=== PATIENT | female | born 1990 | race Caucasian/White ===

== ENCOUNTER 2022-05-11 20:10 | Emergency (ER) | payer MEDICAID, SELFPAY ==
[2022-05-11 20:21] VITALS: BP 152/98; PULSE 81; RESP 16; TEMP 36.6; O2SAT 99
--- NOTE | 2022-05-11 20:46 | ED.GENADULT ---
HPI - General Adult General Chief complaint: Nausea/Vomiting Stated complaint: nausea Time Seen by Provider: 05/11/22 20:22 History of Present Illness HPI narrative: This 32-year-old female comes in reporting persistent nausea and vomiting since noon today. She states that she has some Zofran but this did not help her symptoms. She simply wants to eat and be able to take her medications. She does not report any diarrhea or fevers. She does have a history of recurrent vomiting and typically takes Zofran as needed. Related Data Home Medications Medication Instructions Recorded Confirmed Probiotic 05/11/22 gabapentin 300 mg capsule mg 05/11/22 omeprazole 20 mg capsule,delayed mg 05/11/22 release ondansetron 4 mg disintegrating mg 05/11/22 tablet venlafaxine 150 mg mg PO 05/11/22 capsule,extended release 24 hr Previous Rx's Medication Instructions Recorded metoclopramide HCl 10 mg tablet 10 mg PO Q6H PRN #10 tab 05/11/22 (Reglan) Allergies Allergy/AdvReac Type Severity Reaction Status Date / Time bupropion [From Wellbutrin] AdvReac Verified 05/11/22 20:28 all forms control AdvReac Unknown Uncoded 05/11/22 20:28 oxycodone AdvReac Anxiety Uncoded 05/11/22 20:28 Review of Systems Status of ROS: Reports: 10 or more systems reviewed and unremarkable except as noted in History and below Narrative: Constitutional: No fevers, no weight gain or loss. Eyes: No discharge. No vision changes. HENT: No congestion, no sore throat, no ear pain. Cardiovascular: No chest pain, no palpitations. Respiratory: No shortness of breath, no wheezes, no cough. Gastrointestinal: No abdominal pain, no diarrhea. Nausea and vomiting as described above. Genitourinary: No dysuria, no hematuria. Musculoskeletal: Normal range of motion. Skin: No rashes, no pruritis. Neurological: No dizziness, weakness, sensory change, speech change. Endo/Heme/Allergies: No bruising or bleeding. No polydipsia. Pysch: no suicidality, no anxiety, no insomnia. All other systems reviewed and are negative. PFS PFS Social History Smoking Status: Current every day smoker What tobacco products do you use: cigarettes How often do you have a drink containing alcohol: 4 or more times a week How many standard drinks containing alcohol do you have on a typical day: 1 or 2 How often do you have six or more drinks on one occasion: Weekly AUDIT-C Alcohol total score: 7 Non-prescribed substance use: marijuana (any form) service: No Exam Narrative: Exam Narrative: Constitutional: Well-developed, well-nourished, no acute distress. HEENT: Normocephalic, atraumatic. Neck: Normal range of motion. Nontender. Supple. Heart: Regular. No murmurs. Normal rate. Intact distal pulses. Lungs: Clear to auscultation. No chest discomfort. No wheezes, rhonchi, or rales. Abdomen: Normal bowel sounds. Nontender. No rebound tenderness. Genitalia: Deferred. Back: No midline tenderness. Normal range of motion. Extremities: Normal range of motion. No injury. Skin: Intact. No rash. Warm. No erythema or pallor. Neurologic: No altered sensation. No weakness. Alert and oriented. Psychiatric: No suicidality. No anxiety or depression. No insomnia. Nursing notes and vitals signs are reviewed. Const: Vital Signs, click to edit/add: Vital Signs - 24 hr 05/11/22 20:21 05/11/22 22:35 Temperature 97.8 F Pulse Rate [Left P ulse Oximeter] 81 70 Respiratory Rate 16 Blood Pressure [Ri ght Upper Arm] 152/98 H 136/62 Pulse Oximetry 99 99 Course Vital Signs Vital signs: Initial Vital Signs Temperature 97.8 F 05/11/22 20:21 Temperature Source Temporal Artery Scan 05/11/22 20:21 Pulse Rate 81 05/11/22 20:21 Respiratory Rate 16 05/11/22 20:21 Blood Pressure 152/98 H 05/11/22 20:21 Blood Pressure Mean 116 05/11/22 20:21 Blood Pressure Position Sitting 05/11/22 20:21 Pulse Oximetry 99 05/11/22 20:21 Oxygen Delivery Method 05/11/22 20:21 Vital Signs Temperature 97.8 F 05/11/22 20:21 Pulse Rate 81 05/11/22 20:21 Respiratory Rate 16 05/11/22 20:21 Blood Pressure 152/98 H 05/11/22 20:21 Pulse Oximetry 99 05/11/22 20:21 Temperature 97.8 F 05/11/22 20:21 Pulse Rate 70 05/11/22 22:35 Respiratory Rate 16 05/11/22 20:21 Blood Pressure 136/62 05/11/22 22:35 Pulse Oximetry 99 05/11/22 22:35 Medical Decision Making MDM Narrative Medical decision making narrative: This patient comes in with persistent nausea and vomiting. An IV was established and she received a L of normal saline and 10 mg of Reglan. This brought sufficient relief to her symptoms. The patient wishes to return home. I did provide a prescription for Reglan. Lab Data Labs: Lab Results 05/11/22 05/11/22 Range/Units 21:15 21:15 WBC 7.83 (4.50-11.00) K/uL RBC 4.39 (4.00-5.20) m/uL Hgb 13.2 (12.0-16.0) gm/dL Hct 39.2 (33.0-51.0) % MCV 89 (80-100) fL MCH 30 (26-34) pg MCHC 34 (32-36) gm/dL RDW Coeff of Tray 12.9 (11.5-15.5) % Plt Count 325 (140-440) K/uL Neut % (Auto) 72.9 H (42.0-72.0) % Lymph % (Auto) 19.8 L (20-44) % [place] % (Auto) 6.0 (0.0-11.0) % Eos % (Auto) 0.8 (0.0-7.0) % Baso % (Auto) 0.4 (0.0-3.0) % Neut # (Auto) 5.70 (1.7-7.0) K/uL Lymph # (Auto) 1.60 (0.90-2.90) K/uL [place] # (Auto) 0.50 (0.00-0.90) K/UL Eos # (Auto) 0.06 (0.00-0.50) K/uL Baso # (Auto) 0.03 (0.00-0.30) K/uL Abs Immat Gran (auto) 0.01 (0.00-0.30) K/uL Sodium 136 (135-149) mmol/L Potassium 3.6 (3.6-5.1) mmol/L Chloride 103 (96-114) mmol/L Carbon Dioxide 22 (20-32) mmol/L BUN 12 (5-24) mg/dL Creatinine 0.7 (0.5-1.5) mg/dL Estimated Creat Clear 143.24 Estimated GFR 117 ml/min Glucose 94 (60-115) mg/dL Calcium 8.9 (8.4-10.6) mg/dL Discharge Plan Discharge Clinical Impression: Vomiting Patient Disposition: Home, Self-Care Condition: Improved Additional Instructions: Increased diet as tolerated. Use prescription as needed and indicated. Follow up with MD or return if worsening. Prescriptions: New metoclopramide HCl [Reglan] 10 mg tablet 10 mg PO Q6H PRN (Reason: nausea and vomiting) Qty: 10 0RF No Action venlafaxine 150 mg capsule,extended release 24hr PO 0RF gabapentin 300 mg capsule 0RF omeprazole 20 mg capsule,delayed release(DR/EC) 0RF ondansetron 4 mg tablet,disintegrating 0RF Probiotic 0RF Follow Up/Referrals: Daysi Bowles MD [Primary Care Provider] - Stand Alone Forms: [email or web address] Info Instructions
[2022-05-11] MEDS: METOCLOPRAMIDE HCL 5 MG/ML INJ 10 MG IV (21:19)
[2022-05-11] MEDS: 0.9 % SODIUM CHLORIDE 1000 ml 1,000 ML IV (21:19)
[2022-05-11 21:30] LABS: Basophils Absolute Auto 0.03 K/uL (0.00-0.30); Basophils Percent Auto 0.4 % (0.0-3.0); Eosinophils Absolute Auto 0.06 K/uL (0.00-0.50); Eosinophils Percent Auto 0.8 % (0.0-7.0); Hematocrit 39.2 % (33.0-51.0); Hemoglobin* 13.2 gm/dL (12.0-16.0); Immature Granulocytes Abs Auto 0.01 K/uL (0.00-0.30); Lymphocytes Percent Auto 19.8 % (20-44); Mean Corpuscular HGB Conc 34 gm/dL (32-36); Mean Corpuscular Hemoglobin 30 pg (26-34); Mean Corpuscular Volume 89 fL (80-100); Neutrophils Percent Auto 72.9 % (42.0-72.0); Platelet Count* 325 K/uL (140-440); RDW Coefficient of Variation % 12.9 % (11.5-15.5); Red Blood Count 4.39 m/uL (4.00-5.20); White Blood Count* 7.83 K/uL (4.50-11.00)
[2022-05-11 21:34] LABS: Slide Review Reflex No
[2022-05-11 21:42] LABS: Chloride* 103 mmol/L (96-114); Potassium* 3.6 mmol/L (3.6-5.1); Sodium* 136 mmol/L (135-149)
[2022-05-11 21:45] LABS: Blood Urea Nitrogen* 12 mg/dL (5-24); Carbon Dioxide* 22 mmol/L (20-32); Creatinine* 0.7 mg/dL (0.5-1.5); Est. Creatinine Clearance* 143.24; Estimated Glomerular Filt Rate 117 ml/min
[2022-05-11 21:46] LABS: Calcium* 8.9 mg/dL (8.4-10.6); Glucose* 94 mg/dL (60-115)
[2022-05-11 22:35] VITALS: BP 136/62; PULSE 70; O2SAT 99
== END 2022-05-11 22:41 | disposition home or self-care (01) ==
PROVIDERS: Emergency Provider Emergency Medicine Emergency Medical Services; PCP Family Medicine
DX: R11.2 Nausea with vomiting, unspecified (principal)
CPT/HCPCS: 36415; 80048; 85025; 96374; 99283; 99284; J2765; J7030

== ENCOUNTER 2022-06-09 16:33 | Emergency (ER) | payer MEDICAID, SELFPAY ==
[2022-06-09 16:51] VITALS: BP 143/107; PULSE 99; RESP 18; TEMP 36.7; O2SAT 98; BMI 31.0
--- NOTE | 2022-06-09 17:13 | ED_ITS ---
HPI - General Adult General Chief complaint: Nausea/Vomiting Stated complaint: nausea Time Seen by Provider: 06/09/22 16:41 Source: patient Mode of arrival: ambulatory Limitations: no limitations History of Present Illness HPI narrative: 32-year-old female with a history of chronic nausea and vomiting comes in today with nausea. States that she woke up nail of the night and vomited once. Has not vomited since but has felt very nauseated and has not been able to drink or eat anything because it makes her nausea worse. She denies any other symptoms such as fever, chills, abdominal pain. She denies any diarrhea. She is requesting fluid and Reglan today. Related Data Home Medications Medication Instructions Recorded Confirmed Probiotic 05/11/22 gabapentin 300 mg capsule mg 05/11/22 omeprazole 20 mg capsule,delayed mg 05/11/22 release ondansetron 4 mg disintegrating mg 05/11/22 tablet venlafaxine 150 mg mg PO 05/11/22 capsule,extended release 24 hr Previous Rx's Medication Instructions Recorded metoclopramide HCl 10 mg tablet 10 mg PO Q6H PRN nausea and 05/11/22 (Reglan) vomiting #10 tabs metoclopramide HCl 10 mg tablet 10 mg PO BID PRN nausea and 06/09/22 (Reglan) vomiting #7 tabs Allergies Allergy/AdvReac Type Severity Reaction Status Date / Time bupropion [From Wellbutrin] AdvReac Verified 06/09/22 17:00 all forms control AdvReac Unknown Uncoded 06/09/22 17:00 oxycodone AdvReac Anxiety Uncoded 06/09/22 17:00 Review of Systems Status of ROS: Reports: 10 or more systems reviewed and unremarkable except as noted in History and below [facility] Social History Smoking Status: Current every day smoker What tobacco products do you use: cigarettes How often do you have a drink containing alcohol: 4 or more times a week How many standard drinks containing alcohol do you have on a typical day: 1 or 2 How often do you have six or more drinks on one occasion: Weekly AUDIT-C Alcohol total score: 7 Non-prescribed substance use: marijuana (any form) service: No Exam Narrative: Exam Narrative: Well-nourished well-developed patient in no acute distress. Alert and oriented. Answers questions appropriately. Mood and affect are appropriate. Thoughts are goal oriented and rational. No tangential or magical thinking noted. P atient speaks in full sentences without needing to catch their breath. HEENT: Normocephalic atraumatic. Pupils are equally round reactive to light. Extraocular muscles are intact. Conjunctivae are moist without any icterus noted. Moist mucous membranes. Posterior pharynx is normal. Neck is soft without any lymphadenopathy or thyromegaly. No masses are appreciated. Cardiovascular: Heart is regular rate and rhythm S1 and S2 are present without any murmurs. Lungs: Clear to auscultation bilaterally no wheezes rhonchi or rales are appreciated. Patient takes deep breaths without any discomfort. Abdomen: Soft and nontender nondistended with normal bowel sounds. Skin: Well perfused without any obvious rashes. Const: Vital Signs, click to edit/add: Vital Signs - 24 hr 06/09/22 16:51 Temperature 98.1 F Pulse Rate [Pulse Oximeter] 99 Respiratory Rate 18 Blood Pressure [Ri t Upper Arm] 143/107 H Pulse Oximetry 98 Oxygen Delivery Me thod Room Air Course Course Hospital Course: Patient received 500 mL normal saline and IV Reglan. Vital Signs Vital signs: Initial Vital Signs Temperature 98.1 F 06/09/22 16:51 Temperature Source Temporal Artery Scan 06/09/22 16:51 Pulse Rate 99 06/09/22 16:51 Pulse Rhythm 06/09/22 16:51 Respiratory Rate 18 06/09/22 16:51 Blood Pressure 143/107 H 06/09/22 16:51 Blood Pressure Mean 119 06/09/22 16:51 Blood Pressure Position Sitting 06/09/22 16:51 Pulse Oximetry 98 06/09/22 16:51 Oxygen Delivery Method 06/09/22 16:51 Vital Signs Temperature 98.1 F 06/09/22 16:51 Pulse Rate 99 06/09/22 16:51 Respiratory Rate 18 06/09/22 16:51 Blood Pressure 143/107 H 06/09/22 16:51 Pulse Oximetry 98 06/09/22 16:51 Oxygen Delivery Method 06/09/22 16:51 Temperature 98.1 F 06/09/22 16:51 Pulse Rate 99 06/09/22 16:51 Respiratory Rate 18 06/09/22 16:51 Blood Pressure 143/107 H 06/09/22 16:51 Pulse Oximetry 98 06/09/22 16:51 Oxygen Delivery Method 06/09/22 16:51 Medical Decision Making MDM Narrative Medical decision making narrative: Chronic nausea, treated per above. Discharge Plan Discharge Clinical Impression: Nausea Patient Disposition: Home, Self-Care Condition: Improved Additional Instructions: Follow-up as needed Prescriptions: New metoclopramide HCl [Reglan] 10 mg tablet 10 mg PO BID PRN (Reason: nausea and vomiting) Qty: 7 0RF No Action venlafaxine 150 mg capsule,extended release 24hr PO gabapentin 300 mg capsule omeprazole 20 mg capsule,delayed release(DR/EC) ondansetron 4 mg tablet,disintegrating Probiotic metoclopramide HCl [Reglan] 10 mg tablet 10 mg PO Q6H PRN (Reason: nausea and vomiting) Qty: 10 0RF Follow Up/Referrals: Daysi Bowles MD [Primary Care Provider] - Stand Alone Forms: [employer] Info Instructions
[2022-06-09] MEDS: 0.9 % SODIUM CHLORIDE 500 ML 500 ML IV (17:33)
[2022-06-09] MEDS: METOCLOPRAMIDE HCL 5 MG/ML INJ 10 MG IVP (17:33)
== END 2022-06-09 19:00 | disposition home or self-care (01) ==
PROVIDERS: Emergency Provider Family Medicine; PCP Family Medicine
DX: R11.0 Nausea (principal)
CPT/HCPCS: 96374; 99284; J2765; J7120

== ENCOUNTER 2022-06-21 11:14 | Emergency (ER) | payer MEDICAID, SELFPAY ==
[2022-06-21 11:21] VITALS: BP 143/94; RESP 18; O2SAT 95
[2022-06-21 11:24] VITALS: BP 143/94; PULSE 107; RESP 18; TEMP 36.1; O2SAT 97; BMI 31.0
--- NOTE | 2022-06-21 11:24 | ED_ITS ---
HPI - Nausea/Vomiting/Diarrhea General Time Seen by Provider: 11:30 Date Seen: 06/21/22 Chief complaint: Nausea/Vomiting Stated complaint: Can't keep anything down Time Seen by Provider: 06/21/22 11:20 Source: patient, RN notes reviewed and old records reviewed Mode of arrival: ambulatory Limitations: no limitations History of Present Illness HPI Narrative: Kalli is a 32-year-old female frequent visitor to her to the emergency room for nausea and vomiting who comes in for same today. Patient notes that she awoke at 0700 hours feeling very nauseated and took Zofran at home. She states that in the past 1-2 hours she has had persistent vomiting in spite of the Zofran. She notes that she has nothing left in her stomach and now she is just retching. No blood in her vomit. She has not had fever chills or any diarrhea with this. She notes no ill contacts. She does state that this seems to be like all of the other episodes that she has needed to come in for. She has never had a GI workup. When I ask her about this she describes in detail rheumatological workups and has and diagnoses of lupus, Sjogren's syndrome, dermal myositis. I do ask her about alcohol use and she states that is much better than 2 years ago when she was drinking a whole bottle of whiskey alone. She drinks 3 glasses of prosecco nightly. She denies any withdrawal symptoms but I do note in previous notes she has had some shaking but no history of she seizures. I do ask her if she has plans to quit and she says she is doing that but continues to drink. She states to me that this is all because she has depression. I did remind her that alcohol increases depression. She states that in the last 2 months her depression medications have not been working and she is not able to see her primary doctor until June. I asked her if she would be interested and a counselor and or psychiatry as I had in mind to have her talk to a [facility] counselor. She states that she does not trust them. I told her that I would do my best to talk to Dr. Bowles today and move up an appointment for her. Patient denies any recent trauma but does note bruises secondary to her rheumatological conditions. She denies any abdominal pain. She denies any recent marijuana use. This would include at a [facility]. She has not used for at least 3 months. She was able to drop her children off with her mother before coming here to the emergency room. MD elicited complaint: nausea and vomiting Onset (ago): hour(s) Associated nausea: Yes Related Data Home Medications Medication Instructions Recorded Confirmed Probiotic 05/11/22 gabapentin 300 mg capsule mg 05/11/22 omeprazole 20 mg capsule,delayed mg 05/11/22 release ondansetron 4 mg disintegrating mg 05/11/22 tablet venlafaxine 150 mg mg PO 05/11/22 capsule,extended release 24 hr Previous Rx's Medication Instructions Recorded metoclopramide HCl 10 mg tablet 10 mg PO Q6H PRN nausea and 05/11/22 (Reglan) vomiting #10 tabs metoclopramide HCl 10 mg tablet 10 mg PO BID PRN nausea and 06/09/22 (Reglan) vomiting #7 tabs Allergies Allergy/AdvReac Type Severity Reaction Status Date / Time bupropion [From Wellbutrin] AdvReac Verified 06/21/22 11:24 all forms control AdvReac Unknown Uncoded 06/21/22 11:24 oxycodone AdvReac Anxiety Uncoded 06/21/22 11:24 Review of Systems Status of ROS: Reports: 10 or more systems reviewed and unremarkable except as noted in History and below Const: Denies: fever, chills or fatigue Eyes: Denies: change in vision ENMT: Denies: throat pain or throat swelling Cardio: Reports: other (Rapid heart rate); Denies: chest pain or shortness of breath with exertion Resp: Denies: shortness of breath or cough GI: Reports: nausea and vomiting; Denies: abdominal pain or diarrhea : Reports: other (Urinated prior to her arrival.); Denies: painful urination Musculo: Denies: back pain Neuro: Denies: headache Psych: Reports: other (Depression) Endo: Denies: fatigue Allergy/Immuno: Denies: throat swelling PFSH PFSH Social History Smoking Status: Current every day smoker What tobacco products do you use: cigarettes How often do you have a drink containing alcohol: 4 or more times a week How many standard drinks containing alcohol do you have on a typical day: 1 or 2 How often do you have six or more drinks on one occasion: Weekly AUDIT-C Alcohol total score: 7 Non-prescribed substance use: marijuana (any form) service: No Exam Const: Vital Signs, click to edit/add: Vital Signs - 24 hr 06/21/22 11:24 06/21/22 11:21 06/21/22 14:00 Temperature 96.9 F L Pulse Rate [Pulse Oximeter] 107 H Respiratory Rate 18 18 20 Blood Pressure [Ri ght Upper Arm] 143/94 H 143/94 H 129/94 H Pulse Oximetry 97 95 95 Oxygen Delivery Me thod Room Air Room Air While awaiting physician patient is noted to be retching loudly in room. Upon my arrival this ceases and during our discussion/HPI there is no retching or unusual behavior. Documenting provider has reviewed patient's vital signs: yes Common normals: oriented x3 and alert Other: Patient noted to be upset at my questions and suggestions regarding alcohol use. No order of alcohol noted. HENMT: Common normals: normocephalic, external ears normal and external nose normal Head and scalp: normocephalic Face and sinus: normal facial exam Nose: external nose normal External ear: external ears normal Mouth: oral and palatal mucosa normal Throat: posterior oropharynx normal Eye: Common normals: PERRL General eye: normal appearance of both eyes Pupil: PERRL Neck & C-Spine: Common normals: full ROM Resp: Common normals: normal respiratory effort and clear to auscultation magy aterally Effort & inspection: able to speak in complete sentences Auscultation: clear to auscultation bilaterally Cardio: Common normals: regular rate and regular rhythm Rate: regular rate Rhythm: regular rhythm GI: Common normals: soft to palpation and non-tender Palpation: soft : Common normals: no CVA tenderness Bladder/kidney exam: no CVA tenderness Back & Pelvis: Common normals: no CVA tenderness Extremity: Common normals: normal to inspection Neuro: Common normals: oriented x3 Sensorium/orientation: alert Psych: Common normals: mental status grossly normal, thought process normal, cooperative and speech normal Appearance: grossly normal Activity/motor behavior: appropriate eye contact Speech: normal speech Mood and affect: anxious Thought process: normal thought process Skin: General skin exam: ecchymosis (In various stages of healing) Course Course Hospital Course: At this time differential diagnosis includes but is not limited to cyclic vomiting syndrome, gastritis, alcohol withdrawal, GI dysfunction, anxiety depression. At this time Kalli declines treatment as well as mental health assessment. She is agreeable to blood draw, IV fluids and antiemetics. We will draw CBC, comprehensive panel, CRP, sed rate, alcohol. Will also get urinalysis and drug screen. Will give 1 L of normal saline, additional fluids based on urine ketones, as well as Zofran 4 mg IV. She is driving and I would rather avoid a sedating medication but if she has continued nausea we will use Reglan 10 mg slow infusion. I will also attempt to contact her primary MD to see if we could move up her appointment to be seen for depression. Patient is adamant that her medications have not been working over the past 2 months. However looking back at previous visits she has been likely experiencing post alcohol vomiting and nausea for many months. I did try to reiterate that alcohol is a depressant. Reevaluation(s) Reevaluation #1: Patient noted to have continued nausea after IV Zofran. She was then given Reglan 10 mg IV piggyback as well as Benadryl. She had resolution of her symptoms and feels she is ready to go. I did go over laboratory values with her. Vital Signs Vital signs: Initial Vital Signs Respiratory Rate 18 06/21/22 11:21 Blood Pressure 143/94 H 06/21/22 11:21 Blood Pressure Mean 110 06/21/22 11:21 Pulse Oximetry 95 06/21/22 11:21 Vital Signs Respiratory Rate 18 06/21/22 11:21 Blood Pressure 143/94 H 06/21/22 11:21 Pulse Oximetry 95 06/21/22 11:21 Temperature 96.9 F L 06/21/22 11:24 Pulse Rate 107 H 06/21/22 11:24 Respiratory Rate 20 06/21/22 14:00 Blood Pressure 129/94 H 06/21/22 14:00 Pulse Oximetry 95 06/21/22 14:00 Oxygen Delivery Method 06/21/22 14:00 MDM - Nausea/Vomiting/Diarrhea MDM Narrative Medical decision making narrative: 1. Nausea vomiting-1 L normal saline given. 3+ urinary ketones and mild leukocytosis to 12.5. I am attributing mild leukocytosis to vomiting and not to any infectious process given exam. Moderately improved after IV Zofran, markedly improved after IV Reglan. 2. Excessive alcohol use-discussed need for abstinence. Likely alcohol is triggering the vomiting. Minimal elevation of AST and ALT today. Alcohol level 0. 3. Anxiety depression -patient notes that her medications do not seem to be working. Did discuss need for Psychiatry or counselor therapy. She states ? I do not trust them?. She is agreeable to following up with Dr. Bowles. Initial appointment was for mid June. We have been in successfully able to move that to June 29. 4. Rheumatological disorders -sed rate and CRP normal. 5. Disposition- feels ready to go home after having ice chips. No further vomiting. Medical Records Attestation: I reviewed the patient's medical records. Lab Data Attestation: I reviewed the patient's lab results. Labs: Lab Results 06/21/22 06/21/22 06/21/22 Range/Units 11:55 11:55 11:55 WBC 12.46 H (4.50-11.00) K/uL RBC 4.52 (4.00-5.20) m/uL Hgb 13.8 (12.0-16.0) gm/dL Hct 40.8 (33.0-51.0) % MCV 90 (80-100) fL MCH 31 (26-34) pg MCHC 34 (32-36) gm/dL RDW Coeff of Tray 12.2 (11.5-15.5) % Plt Count 325 (140-440) K/uL Neut % (Auto) 86.1 H (42.0-72.0) % Lymph % (Auto) 8.6 L (20-44) % [place] % (Auto) 4.5 (0.0-11.0) % Eos % (Auto) 0.3 (0.0-7.0) % Baso % (Auto) 0.3 (0.0-3.0) % Neut # (Auto) 10.70 H (1.7-7.0) K/uL Lymph # (Auto) 1.10 (0.90-2.90) K/uL [place] # (Auto) 0.60 (0.00-0.90) K/UL Eos # (Auto) 0.00 (0.00-0.50) K/uL Baso # (Auto) 0.00 (0.00-0.30) K/uL Abs Immat Gran (auto) 0.02 (0.00-0.30) K/uL ESR 4 (2-20) mm/hr Sodium 138 (135-149) mmol/L Potassium 3.9 (3.6-5.1) mmol/L Chloride 102 (96-114) mmol/L Carbon Dioxide 25 (20-32) mmol/L BUN 14 (5-24) mg/dL Creatinine 0.6 (0.5-1.5) mg/dL Estimated Creat Clear 110.32 Estimated GFR 121 ml/min Glucose 85 (60-115) mg/dL Calcium 8.9 (8.4-10.6) mg/dL Magnesium 1.7 (1.5-2.6) mg/dL Total Bilirubin 0.6 (0.1-1.5) mg/dL AST 61 H (12-35) U/L ALT 37 H (4-35) U/L Alkaline Phosphatase 148 (40-150) U/L C-Reactive Protein < 0.5 L (0.5-1.0) mg/dL Total Protein 7.9 (6.0-8.3) g/dL Albumin 4.9 (3.3-5.0) g/dL Urine Color (Yellow) Urine Appearance (Clear) Urine pH (5.0-8.5) Ur Specific [place] (1.000-1.030) Urine Protein (Negative) Urine Glucose (UA) (Negative) Urine Ketones (Negative) Urine Blood (Negative) Urine Nitrite (Negative) Urine Bilirubin (Negative) Urine Urobilinogen (0.2-1.0) Ur Leukocyte Esterase (Negative) Urine RBC (0-2) Urine WBC (0-5) Ur Squamous Epith Cells (None-Few) Urine Bacteria (None) Urine Mucus (None) Urine Opiates Screen (Negative) Ur Oxycodone Screen (Negative) Urine Methadone Screen (Negative) Ur Propoxyphene Screen (Negative) Ur Barbiturates Screen (Negative) U Tricyclic Antidepress (Negative) Ur Phencyclidine Scrn (Negative) Ur Amphetamines Screen (Negative) U Methamphetamines Scrn (Negative) U Benzodiazepines Scrn (Negative) Urine Cocaine Screen (Negative) U Marijuana (THC) Screen (Negative) Ur Drug Screen Comment Ethyl Alcohol < 0.01 L (0.01-0.03) % 06/21/22 06/21/22 Range/Units 12:19 12:19 WBC (4.50-11.00) K/uL RBC (4.00-5.20) m/uL Hgb (12.0-16.0) gm/dL Hct (33.0-51.0) % MCV (80-100) fL MCH (26-34) pg MCHC (32-36) gm/dL RDW Coeff of Tray (11.5-15.5) % Plt Count (140-440) K/uL Neut % (Auto) (42.0-72.0) % Lymph % (Auto) (20-44) % [place] % (Auto) (0.0-11.0) % Eos % (Auto) (0.0-7.0) % Baso % (Auto) (0.0-3.0) % Neut # (Auto) (1.7-7.0) K/uL Lymph # (Auto) (0.90-2.90) K/uL [place] # (Auto) (0.00-0.90) K/UL Eos # (Auto) (0.00-0.50) K/uL Baso # (Auto) (0.00-0.30) K/uL Abs Immat Gran (auto) (0.00-0.30) K/uL ESR (2-20) mm/hr Sodium (135-149) mmol/L Potassium (3.6-5.1) mmol/L Chloride (96-114) mmol/L Carbon Dioxide (20-32) mmol/L BUN (5-24) mg/dL Creatinine (0.5-1.5) mg/dL Estimated Creat Clear Estimated GFR ml/min Glucose (60-115) mg/dL Calcium (8.4-10.6) mg/dL Magnesium (1.5-2.6) mg/dL Total Bilirubin (0.1-1.5) mg/dL AST (12-35) U/L ALT (4-35) U/L Alkaline Phosphatase (40-150) U/L C-Reactive Protein (0.5-1.0) mg/dL Total Protein (6.0-8.3) g/dL Albumin (3.3-5.0) g/dL Urine Color Yellow (Yellow) Urine Appearance Clear (Clear) Urine pH 7.5 (5.0-8.5) Ur Specific [place] 1.025 (1.000-1.030) Urine Protein 1+ A (Negative) Urine Glucose (UA) Negative (Negative) Urine Ketones 3+ A (Negative) Urine Blood Trace-intact A (Negative) Urine Nitrite Negative (Negative) Urine Bilirubin Negative (Negative) Urine Urobilinogen 0.2 (0.2-1.0) Ur Leukocyte Esterase Negative (Negative) Urine RBC 0-2 (0-2) Urine WBC 0-2 (0-5) Ur Squamous Epith Cells Moderate A (None-Few) Urine Bacteria None (None) Urine Mucus Few A (None) Urine Opiates Screen Negative (Negative) Ur Oxycodone Screen Negative (Negative) Urine Methadone Screen Negative (Negative) Ur Propoxyphene Screen Negative (Negative) Ur Barbiturates Screen Negative (Negative) U Tricyclic Antidepress Negative (Negative) Ur Phencyclidine Scrn Negative (Negative) Ur Amphetamines Screen Negative (Negative) U Methamphetamines Scrn Negative (Negative) U Benzodiazepines Scrn Negative (Negative) Urine Cocaine Screen Negative (Negative) U Marijuana (THC) Screen Negative (Negative) Ur Drug Screen Comment See Note Ethyl Alcohol (0.01-0.03) % Discharge Plan Discharge Clinical Impression: Vomiting Patient Disposition: Home, Self-Care Additional Instructions: Rest and push fluids. Abstain from all alcohol. Return to the emergency room for recurrence or worsening symptoms. Your follow up appointment is scheduled on 06/29 with a 12:45pm arrival time. There is a $3.00 co-pay that will be required the day of your visit. Please bring your insurance cards and photo ID. [facility] [address] [place] [address] Prescriptions: No Action venlafaxine 150 mg capsule,extended release 24hr PO gabapentin 300 mg capsule omeprazole 20 mg capsule,delayed release(DR/EC) ondansetron 4 mg tablet,disintegrating Probiotic metoclopramide HCl [Reglan] 10 mg tablet 10 mg PO Q6H PRN (Reason: nausea and vomiting) Qty: 10 0RF metoclopramide HCl [Reglan] 10 mg tablet 10 mg PO BID PRN (Reason: nausea and vomiting) Qty: 7 0RF Follow Up/Referrals: Daysi Bowles MD [Primary Care Provider] - Stand Alone Forms: [employer] Info Instructions
[2022-06-21] MEDS: 0.9 % SODIUM CHLORIDE 1000 ml 1,000 ML IV (11:56)
[2022-06-21] MEDS: ONDANSETRON 2 MG/ML inj 4 MG IVP (12:01)
[2022-06-21 12:07] LABS: Basophils Percent Auto 0.3 % (0.0-3.0); Eosinophils Percent Auto 0.3 % (0.0-7.0); Hematocrit 40.8 % (33.0-51.0); Hemoglobin* 13.8 gm/dL (12.0-16.0); Immature Granulocytes Abs Auto 0.02 K/uL (0.00-0.30); Lymphocytes Percent Auto 8.6 % (20-44); Mean Corpuscular HGB Conc 34 gm/dL (32-36); Mean Corpuscular Hemoglobin 31 pg (26-34); Mean Corpuscular Volume 90 fL (80-100); Monocytes Percent Auto 4.5 % (0.0-11.0); Neutrophils Percent Auto 86.1 % (42.0-72.0); Platelet Count* 325 K/uL (140-440); RDW Coefficient of Variation % 12.2 % (11.5-15.5); Red Blood Count 4.52 m/uL (4.00-5.20); White Blood Count* 12.46 K/uL (4.50-11.00)
[2022-06-21 12:10] LABS: Slide Review Reflex No
[2022-06-21 12:41] LABS: Appearance Urine Clear (Clear); Bilirubin Urine Negative (Negative); Blood Urine Trace-intact (Negative); Color Urine Yellow (Yellow); Glucose Urine Negative (Negative); Ketones Urine 3+ (Negative); Leukocyte Esterase Urine Negative (Negative); Nitrite Urine Negative (Negative); Protein Urine 1+ (Negative); Specific Gravity Urine 1.025 (1.000-1.030); Urobilinogen Urine 0.2 (0.2-1.0); pH Urine 7.5 (5.0-8.5)
[2022-06-21 12:41] LABS: Albumin* 4.9 g/dL (3.3-5.0); Chloride* 102 mmol/L (96-114)
[2022-06-21 12:42] LABS: Potassium* 3.9 mmol/L (3.6-5.1); Sodium* 138 mmol/L (135-149)
[2022-06-21 12:43] LABS: Amphetamine Screen Urine Negative (Negative); Barbiturate Screen Urine Negative (Negative); Benzodiazepines Screen Urine Negative (Negative); Cannabinoid Screen Urine Negative (Negative); Cocaine Screen Urine Negative (Negative); Methadone Screen Urine Negative (Negative); Methamphetamines Screen Urine Negative (Negative); Opiate Screen Urine Negative (Negative); Oxycodone Screen Urine Negative (Negative); Phencyclidine Screen Urine Negative (Negative); Tricyclic Antidepressant Urine Negative (Negative)
[2022-06-21 12:44] LABS: Aspartate Amino Transferase* 61 U/L (12-35); Bilirubin Total* 0.6 mg/dL (0.1-1.5); Carbon Dioxide* 25 mmol/L (20-32); Creatinine* 0.6 mg/dL (0.5-1.5); Est. Creatinine Clearance* 110.32; Estimated Glomerular Filt Rate 121 ml/min
[2022-06-21 12:45] LABS: Alanine Aminotransferase* 37 U/L (4-35); Alkaline Phosphatase* 148 U/L (40-150); Blood Urea Nitrogen* 14 mg/dL (5-24); Calcium* 8.9 mg/dL (8.4-10.6); Glucose* 85 mg/dL (60-115); Magnesium* 1.7 mg/dL (1.5-2.6); Total Protein* 7.9 g/dL (6.0-8.3)
[2022-06-21 12:46] LABS: Ethanol* < 0.01 % (0.01-0.03)
[2022-06-21 12:57] LABS: C Reactive Protein* < 0.5 mg/dL (0.5-1.0)
[2022-06-21 13:00] LABS: RBC Urine 0-2 (0-2); WBC Urine 0-2 (0-5)
[2022-06-21 13:01] LABS: Mucus Urine Few; Squamous Epithelial Cell Urine Moderate (None-Few)
[2022-06-21 13:06] LABS: Erythrocyte SedimentationRate* 4 mm/hr (2-20)
[2022-06-21] MEDS: diphenhydrAMINE 50 MG/ML inj 25 MG IVP (13:51)
[2022-06-21] MEDS: METOCLOPRAMIDE HCL 10 MG in 0.9 % SODIUM CHLORIDE 100 ml 100 ML 306 MG IVPB (13:59)
[2022-06-21 14:00] VITALS: BP 129/94; RESP 20; O2SAT 95
== END 2022-06-21 14:55 | disposition home or self-care (01) ==
PROVIDERS: Emergency Provider Family Medicine; PCP Family Medicine
DX: R11.2 Nausea with vomiting, unspecified (principal); F10.10 Alcohol abuse, uncomplicated; F41.8 Other specified anxiety disorders
CPT/HCPCS: 36415; 80053; 80306; 81001; 82077; 83735; 85025; 85651; 86140; 96365; 96375; 99284; J1200; J2405; J2765; J7030

== ENCOUNTER 2022-07-16 19:08 | Emergency (ER) | payer MEDICAID, SELFPAY ==
[2022-07-16 19:22] VITALS: BP 136/75; PULSE 85; RESP 18; TEMP 36.6; O2SAT 99; BMI 31.0
[2022-07-16] MEDS: ONDANSETRON ODT 4 MG TAB PO (19:45)
--- NOTE | 2022-07-16 19:45 | ED.GENADULT ---
HPI - General Adult General Chief complaint: Nausea/Vomiting Stated complaint: MIGRAINE,VOMITING & NAUSEA Time Seen by Provider: 07/16/22 19:33 Source: patient Mode of arrival: ambulatory Limitations: no limitations History of Present Illness HPI narrative: 32-year-old female with chronic nausea coming in today with nausea. States that she had a headache earlier that is resolved. However she states that she ran out of Zofran is requesting handful until she can see her doctor tomorrow. No other concerns. Related Data Home Medications Medication Instructions Recorded Confirmed Probiotic 05/11/22 gabapentin 300 mg capsule mg 05/11/22 omeprazole 20 mg capsule,delayed mg 05/11/22 release ondansetron 4 mg disintegrating mg 05/11/22 tablet venlafaxine 150 mg mg PO 05/11/22 capsule,extended release 24 hr Previous Rx's Medication Instructions Recorded metoclopramide HCl 10 mg tablet 10 mg PO Q6H PRN nausea and 05/11/22 (Reglan) vomiting #10 tabs metoclopramide HCl 10 mg tablet 10 mg PO BID PRN nausea and 06/09/22 (Reglan) vomiting #7 tabs Allergies Allergy/AdvReac Type Severity Reaction Status Date / Time bupropion [From Wellbutrin] AdvReac Verified 06/21/22 11:24 all forms control AdvReac Unknown Uncoded 06/21/22 11:24 oxycodone AdvReac Anxiety Uncoded 06/21/22 11:24 Review of Systems Status of ROS: Reports: 10 or more systems reviewed and unremarkable except as noted in History and below PFSH PFSH Social History Smoking Status: Current every day smoker What tobacco products do you use: cigarettes How often do you have a drink containing alcohol: 4 or more times a week How many standard drinks containing alcohol do you have on a typical day: 1 or 2 How often do you have six or more drinks on one occasion: Weekly AUDIT-C Alcohol total score: 7 Non-prescribed substance use: marijuana (any form) service: No Exam Narrative: Exam Narrative: Well-nourished well-developed patient in no acute distress. Alert and oriented. Answers questions appropriately. Mood and affect are appropriate. Thoughts are goal oriented and rational. No tangential or magical thinking noted. Patient speaks in full sentences without needing to catch their breath. HEENT: Normocephalic atraumatic. Pupils are equally round reactive to light. Extraocular muscles are intact. Conjunctivae are moist without any icterus noted. Moist mucous membranes. Const: Vital Signs, click to edit/add: Vital Signs - 24 hr 07/16/22 19:22 Temperature 97.8 F Pulse Rate [Right Pulse Oximeter] 85 Respiratory Rate 18 Blood Pressure [Ri ght Upper Arm] 136/75 Pulse Oximetry 99 Oxygen Delivery Me thod Room Air Course Course Hospital Course: Patient received 1 dose of oral Zofran in the ED today. Vital Signs Vital signs: Initial Vital Signs Temperature 97.8 F 07/16/22 19:22 Temperature Source Temporal Artery Scan 07/16/22 19:22 Pulse Rate 85 07/16/22 19:22 Respiratory Rate 18 07/16/22 19:22 Blood Pressure 136/75 07/16/22 19:22 Blood Pressure Mean 95 07/16/22 19:22 Blood Pressure Position Sitting 07/16/22 19:22 Pulse Oximetry 99 07/16/22 19:22 Oxygen Delivery Method 07/16/22 19:22 Vital Signs Temperature 97.8 F 07/16/22 19:22 Pulse Rate 85 07/16/22 19:22 Respiratory Rate 18 07/16/22 19:22 Blood Pressure 136/75 07/16/22 19:22 Pulse Oximetry 99 07/16/22 19:22 Oxygen Delivery Method 07/16/22 19:22 Temperature 97.8 F 07/16/22 19:22 Pulse Rate 85 07/16/22 19:22 Respiratory Rate 18 07/16/22 19:22 Blood Pressure 136/75 07/16/22 19:22 Pulse Oximetry 99 07/16/22 19:22 Oxygen Delivery Method 07/16/22 19:22 Medical Decision Making MDM Narrative Medical decision making narrative: Chronic nausea. Patient sent home with 10 tablets of Zofran. Follow-up with primary care this week. Discharge Plan Discharge Clinical Impression: Nausea Patient Disposition: Home, Self-Care Condition: Stable Additional Instructions: Follow-up with your primary care provider this week Prescriptions: No Action venlafaxine 150 mg capsule,extended release 24hr PO gabapentin 300 mg capsule omeprazole 20 mg capsule,delayed release(DR/EC) ondansetron 4 mg tablet,disintegrating Probiotic metoclopramide HCl [Reglan] 10 mg tablet 10 mg PO Q6H PRN (Reason: nausea and vomiting) Qty: 10 0RF metoclopramide HCl [Reglan] 10 mg tablet 10 mg PO BID PRN (Reason: nausea and vomiting) Qty: 7 0RF Follow Up/Referrals: Daysi Bowles MD [Primary Care Provider] - Stand Alone Forms: [employer] Info Instructions
== END 2022-07-16 19:59 | disposition home or self-care (01) ==
LOC: ED 19:49
PROVIDERS: Emergency Provider Family Medicine; PCP Family Medicine
DX: R11.0 Nausea (principal)
CPT/HCPCS: 99283; A9270

== ENCOUNTER 2022-08-03 18:13 | Emergency (ER) | payer MEDICAID, SELFPAY ==
[2022-08-03 18:24] VITALS: BP 143/116; PULSE 106; RESP 14; TEMP 36.3; O2SAT 98; BMI 32.8
--- NOTE | 2022-08-03 18:55 | ED.NAVMDI ---
HPI - Nausea/Vomiting/Diarrhea General Chief complaint: Nausea/Vomiting Stated complaint: Acid Reflux Vomiting Time Seen by Provider: 08/03/22 18:15 History of Present Illness HPI Narrative: This 32-year-old female comes in reporting nausea with vomiting and GERD symptoms. She has had symptoms like this in the past. She normally takes Zofran with good relief but has run out of this medicine. She has a history of alcohol abuse but has quit taking alcohol. She does not report any fever or blood in the toilet. These symptoms started today and became worse over the past few hours. Related Data Home Medications Medication Instructions Recorded Confirmed Probiotic 1 cap PO DAILY 05/11/22 08/03/22 gabapentin 300 mg capsule 300 mg PO HS 05/11/22 08/03/22 omeprazole 20 mg capsule,delayed 20 mg PO DAILY 05/11/22 08/03/22 release ondansetron 4 mg disintegrating 4 mg PO Q8H PRN 05/11/22 08/03/22 tablet venlafaxine 150 mg 150 mg PO DAILY 05/11/22 08/03/22 capsule,extended release 24 hr amlodipine 5 mg tablet 5 mg PO DAILY 07/16/22 08/03/22 cyclobenzaprine 10 mg tablet 10 mg PO HS PRN 07/16/22 08/03/22 dextroamphetamine-amphetamine 5 mg 5 mg PO BID 07/16/22 07/16/22 tablet ketoconazole 2 % topical cream applic topical 08/03/22 Previous Rx's Medication Instructions Recorded ondansetron 4 mg disintegrating 4 mg PO Q6H #20 tabs 08/03/22 tablet Allergies Allergy/AdvReac Type Severity Reaction Status Date / Time latex Allergy Mild Rash Verified 08/03/22 18:31 bupropion [From Wellbutrin] AdvReac Intermediate Mood Verified 08/03/22 18:31 Changes all forms control AdvReac Severe Severe Uncoded 07/16/22 20:01 Mood Changes oxycodone AdvReac Intermediate Anxiety Uncoded 07/16/22 20:03 Review of Systems Status of ROS: Reports: 10 or more systems reviewed and unremarkable except as noted in History and below Narrative: Constitutional: No fevers, no weight gain or loss. Eyes: No discharge. No vision changes. HENT: No congestion, no sore throat, no ear pain. Cardiovascular: No chest pain, no palpitations. Respiratory: No shortness of breath, no wheezes, no cough. Gastrointestinal: No diarrhea. GERD symptoms with nausea and vomiting. Genitourinary: No dysuria, no hematuria. Musculoskeletal: Normal range of motion. Skin: No rashes, no pruritis. Neurological: No dizziness, weakness, sensory change, speech change. Endo/Heme/Allergies: No bruising or bleeding. No polydipsia. Pysch: no suicidality, no anxiety, no insomnia. All other systems reviewed and are negative. [facility] Medical History (Updated 08/03/22 @ 18:59 by Kevin Dyson MD) ADHD (attention deficit hyperactivity disorder) Alcohol abuse Anxiety disorder Connective tissue disease Dermatomyositis Fibromyalgia affecting multiple sites TAHIR (generalized anxiety disorder) History of Raynaud's syndrome Migraine PTSD (post-traumatic stress disorder) Substance abuse Unspecified personality disorder Surgical History (Updated 07/16/22 @ 19:49 by Fantasma Oliveira RN) H/O vaginal hysterectomy History of left oophorectomy History of salpingectomy S/P LEEP (loop electrosurgical excision procedure) Social History Smoking Status: Current every day smoker What tobacco products do you use: cigarettes Do you use any of these nicotine containing products: None Second hand tobacco smoke exposure: No How often do you have a drink containing alcohol: never AUDIT-C Alcohol total score: 0 Non-prescribed substance use: marijuana (any form) service: No Exam Narrative: Exam Narrative: Constitutional: Well-developed, well-nourished. HEENT: Normocephalic, atraumatic. Neck: Normal range of motion. Nontender. Supple. Heart: Regular. No murmurs. Normal rate. Intact distal pulses. Lungs: Clear to auscultation. No wheezes, rhonchi, or rales. Abdomen: Normal bowel sounds. Nontender. No rebound tenderness. She reports reflux symptoms. Genitalia: Deferred. Back: No midline tenderness. Normal range of motion. Extremities: Normal range of motion. No injury. Skin: Intact. No rash. Warm. No erythema or pallor. Neurologic: No altered sensation. No weakness. Alert and oriented. Psychiatric: No suicidality. No anxiety or depression. No insomnia. Nursing notes and vitals signs are reviewed. Const: Vital Signs, click to edit/add: Vital Signs - 24 hr 08/03/22 18:24 Temperature 97.4 F L Pulse Rate [Pulse Oximeter] 106 H Respiratory Rate 14 Blood Pressure [Le ft Upper Arm] 143/116 H Pulse Oximetry 98 Oxygen Delivery Me thod Room Air Course Vital Signs Vital signs: Initial Vital Signs Temperature 97.4 F L 08/03/22 18:24 Temperature Source Temporal Artery Scan 08/03/22 18:24 Pulse Rate 106 H 08/03/22 18:24 Respiratory Rate 14 08/03/22 18:24 Blood Pressure 143/116 H 08/03/22 18:24 Blood Pressure Mean 125 08/03/22 18:24 Blood Pressure Position Sitting 08/03/22 18:24 Pulse Oximetry 98 08/03/22 18:24 Oxygen Delivery Method 08/03/22 18:24 Vital Signs Temperature 97.4 F L 08/03/22 18:24 Pulse Rate 106 H 08/03/22 18:24 Respiratory Rate 14 08/03/22 18:24 Blood Pressure 143/116 H 08/03/22 18:24 Pulse Oximetry 98 08/03/22 18:24 Oxygen Delivery Method 08/03/22 18:24 Temperature 97.4 F L 08/03/22 18:24 Pulse Rate 106 H 08/03/22 18:24 Respiratory Rate 14 08/03/22 18:24 Blood Pressure 143/116 H 08/03/22 18:24 Pulse Oximetry 98 08/03/22 18:24 Oxygen Delivery Method 08/03/22 18:24 MDM - Nausea/Vomiting/Diarrhea MDM Narrative Medical decision making narrative: This patient arrives with nausea and vomiting over the past few hours. She arrives with normal vital signs. I discussed lab and imaging options as well as treatment options. The patient stated that she simply wanted to take a Zofran ODT tablet. She declined any other treatments or diagnostic tools at this time. I did provide a prescription for more tablets of Zofran. Discharge Plan Discharge Clinical Impression: GERD (gastroesophageal reflux disease), Vomiting Patient Disposition: Home, Self-Care Condition: Stable Additional Instructions: Take medication as needed and indicated. Follow up with MD or return if worsening. Prescriptions: New ondansetron 4 mg tablet,disintegrating 4 mg PO Q6H Qty: 20 0RF No Action venlafaxine 150 mg capsule,extended release 24hr 150 mg PO DAILY gabapentin 300 mg capsule 300 mg PO HS omeprazole 20 mg capsule,delayed release(DR/EC) 20 mg PO DAILY ondansetron 4 mg tablet,disintegrating 4 mg PO Q8H PRN Probiotic 1 cap PO DAILY amlodipine 5 mg tablet 5 mg PO DAILY cyclobenzaprine 10 mg tablet 10 mg PO HS PRN dextroamphetamine-amphetamine 5 mg tablet 5 mg PO BID Label Comments: take 1.5 tablets (7.5 mg) by mouth 2 times daily ketoconazole 2 % cream TOPICAL Follow Up/Referrals: Daysi Bowles MD [Primary Care Provider] - Stand Alone [facility]
[2022-08-03 19:00] VITALS: BP 147/107; PULSE 102; RESP 20
[2022-08-03] MEDS: ONDANSETRON ODT 4 MG TAB PO (19:04)
== END 2022-08-03 19:07 | disposition home or self-care (01) ==
PROVIDERS: Emergency Provider Emergency Medicine Emergency Medical Services; PCP Family Medicine
DX: K21.9 Gastro-esophageal reflux disease without esophagitis (principal)
CPT/HCPCS: 99283; 99284; A9270

== ENCOUNTER 2022-08-24 15:51 | Emergency (ER) | payer MEDICAID, SELFPAY ==
[2022-08-24 16:09] VITALS: BP 147/109; PULSE 122; RESP 16; TEMP 36; O2SAT 97; BMI 32.8
--- NOTE | 2022-08-24 17:26 | ED.NAVMDI ---
HPI - Nausea/Vomiting/Diarrhea General Chief complaint: Nausea/Vomiting Stated complaint: Alcohol relapse, can't keep anything down Time Seen by Provider: 08/24/22 17:02 History of Present Illness HPI Narrative: This 32-year-old female comes in reporting nausea and vomiting for the past day or more. She states that she relapsed in to taking alcohol a couple days ago. She states that she had 12 of the many bottles of alcohol. She states that she has been trying to quit and has been taking alcohol just occasionally and not excessively. She does not report any symptoms of withdrawal. She does have some upper epigastric tenderness. Related Data Home Medications Medication Instructions Recorded Confirmed Probiotic 1 cap PO DAILY 05/11/22 08/03/22 gabapentin 300 mg capsule 300 mg PO HS 05/11/22 08/03/22 omeprazole 20 mg capsule,delayed 20 mg PO DAILY 05/11/22 08/03/22 release ondansetron 4 mg disintegrating 4 mg PO Q8H PRN 05/11/22 08/03/22 tablet venlafaxine 150 mg 150 mg PO DAILY 05/11/22 08/03/22 capsule,extended release 24 hr amlodipine 5 mg tablet 5 mg PO DAILY 07/16/22 08/03/22 cyclobenzaprine 10 mg tablet 10 mg PO HS PRN 07/16/22 08/03/22 dextroamphetamine-amphetamine 5 mg 5 mg PO BID 07/16/22 07/16/22 tablet ketoconazole 2 % topical cream applic topical 08/03/22 Previous Rx's Medication Instructions Recorded ondansetron 4 mg disintegrating 4 mg PO Q6H #20 tabs 08/03/22 tablet metoclopramide HCl 10 mg tablet 10 mg PO Q6H PRN nausea and 08/24/22 (Reglan) vomiting #20 tabs ondansetron HCl 4 mg tablet 4 mg PO Q6H #20 tabs 08/24/22 Allergies Allergy/AdvReac Type Severity Reaction Status Date / Time latex Allergy Mild Rash Verified 08/03/22 18:31 bupropion [From Wellbutrin] AdvReac Intermediate Mood Verified 08/03/22 18:31 Changes all forms control AdvReac Severe Severe Uncoded 07/16/22 20:01 Mood Changes oxycodone AdvReac Intermediate Anxiety Uncoded 07/16/22 20:03 Review of Systems Status of ROS: Reports: 10 or more systems reviewed and unremarkable except as noted in History and below Narrative: Constitutional: No fevers, no weight gain or loss. Eyes: No discharge. No vision changes. HENT: No congestion, no sore throat, no ear pain. Cardiovascular: No chest pain, no palpitations. Respiratory: No shortness of breath, no wheezes, no cough. Gastrointestinal: No diarrhea. Upper epigastric pain. Frequent nausea and vomiting now being dry heaves. Genitourinary: No dysuria, no hematuria. Musculoskeletal: Normal range of motion. Skin: No rashes, no pruritis. Neurological: No dizziness, weakness, sensory change, speech change. Endo/Heme/Allergies: No bruising or bleeding. No polydipsia. Pysch: no suicidality, no anxiety, no insomnia. All other systems reviewed and are negative. [facility] Medical History (Updated 08/24/22 @ 19:39 by Kevin Dyson MD) ADHD (attention deficit hyperactivity disorder) Alcohol abuse Anxiety disorder Connective tissue disease Dermatomyositis Fibromyalgia affecting multiple sites TAHIR (generalized anxiety disorder) History of Raynaud's syndrome Migraine PTSD (post-traumatic stress disorder) Substance abuse Unspecified personality disorder Surgical History (Updated 07/16/22 @ 19:49 by Fantasma Oliveira RN) H/O vaginal hysterectomy History of left oophorectomy History of salpingectomy S/P LEEP (loop electrosurgical excision procedure) Social History Smoking Status: Current every day smoker What tobacco products do you use: cigarettes Do you use any of these nicotine containing products: None Second hand tobacco smoke exposure: No How often do you have a drink containing alcohol: never AUDIT-C Alcohol total score: 0 Non-prescribed substance use: marijuana (any form) service: No Exam Narrative: Exam Narrative: Constitutional: Well-developed, well-nourished, no acute distress. HEENT: Normocephalic, atraumatic. Neck: Normal range of motion. Nontender. Supple. Heart: Regular. No murmurs. Tachycardia. Intact distal pulses. Lungs: Clear to auscultation. No chest discomfort. No wheezes, rhonchi, or rales. Abdomen: Normal bowel sounds. Upper epigastric pain. No rebound tenderness. Genitalia: Deferred. Back: No midline tenderness. Normal range of motion. Extremities: Normal range of motion. No injury. Skin: Intact. No rash. Warm. No erythema or pallor. Neurologic: No altered sensation. No weakness. Alert and oriented. Psychiatric: No suicidality. No anxiety or depression. No insomnia. Nursing notes and vitals signs are reviewed. Const: Vital Signs, click to edit/add: Vital Signs - 24 hr 08/24/22 16:09 Temperature 96.8 F L Pulse Rate [Right Pulse Oximeter] 122 H Respiratory Rate 16 Blood Pressure [Ri ght Upper Arm] 147/109 H Pulse Oximetry 97 Oxygen Delivery Me thod Room Air Course Vital Signs Vital signs: Initial Vital Signs Temperature 96.8 F L 08/24/22 16:09 Temperature Source Temporal Artery Scan 08/24/22 16:09 Pulse Rate 122 H 08/24/22 16:09 Pulse Rhythm 08/24/22 16:09 Respiratory Rate 16 08/24/22 16:09 Blood Pressure 147/109 H 08/24/22 16:09 Blood Pressure Mean 121 08/24/22 16:09 Blood Pressure Position Sitting 08/24/22 16:09 Pulse Oximetry 97 08/24/22 16:09 Oxygen Delivery Method 08/24/22 16:09 Vital Signs Temperature 96.8 F L 08/24/22 16:09 Pulse Rate 122 H 08/24/22 16:09 Respiratory Rate 16 08/24/22 16:09 Blood Pressure 147/109 H 08/24/22 16:09 Pulse Oximetry 97 08/24/22 16:09 Oxygen Delivery Method 08/24/22 16:09 Temperature 96.8 F L 08/24/22 16:09 Pulse Rate 122 H 08/24/22 16:09 Respiratory Rate 16 08/24/22 16:09 Blood Pressure 147/109 H 08/24/22 16:09 Pulse Oximetry 97 08/24/22 16:09 Oxygen Delivery Method 08/24/22 16:09 MDM - Nausea/Vomiting/Diarrhea MDM Narrative Medical decision making narrative: This 32-year-old female comes in with gastritis related to alcohol abuse. She has nausea and vomiting. An IV was placed and labs were drawn. These returned with reassuring findings. She received an IV dose of Reglan and a L of normal saline. She also received a GI cocktail. These treatments brought rather significant relief to her symptoms. She is okay to return home and encouraged not to use alcohol of course. She did receive Rx for Zofran and Reglan. Lab Data Labs: Lab Results 08/24/22 08/24/22 Range/Units 18:20 18:20 WBC 8.79 (4.50-11.00) K/uL RBC 4.74 (4.00-5.20) m/uL Hgb 14.3 (12.0-16.0) gm/dL Hct 42.2 (33.0-51.0) % MCV 89 (80-100) fL MCH 30 (26-34) pg MCHC 34 (32-36) gm/dL RDW Coeff of Tray 12.0 (11.5-15.5) % Plt Count 333 (140-440) K/uL Neut % (Auto) 78.1 H (42.0-72.0) % Lymph % (Auto) 15.6 L (20-44) % [place] % (Auto) 5.8 (0.0-11.0) % Eos % (Auto) 0.2 (0.0-7.0) % Baso % (Auto) 0.3 (0.0-3.0) % Neut # (Auto) 6.90 (1.7-7.0) K/uL Lymph # (Auto) 1.40 (0.90-2.90) K/uL [place] # (Auto) 0.50 (0.00-0.90) K/UL Eos # (Auto) 0.02 (0.00-0.50) K/uL Baso # (Auto) 0.03 (0.00-0.30) K/uL Abs Immat Gran (auto) 0.00 (0.00-0.30) K/uL Sodium 133 L (135-149) mmol/L Potassium 3.9 (3.6-5.1) mmol/L Chloride 99 (96-114) mmol/L Carbon Dioxide 24 (20-32) mmol/L BUN 12 (5-24) mg/dL Creatinine 0.8 (0.5-1.5) mg/dL Estimated Creat Clear 82.74 Estimated GFR 100 ml/min Glucose 94 (60-115) mg/dL Calcium 9.4 (8.4-10.6) mg/dL Total Bilirubin 0.7 (0.1-1.5) mg/dL Direct Bilirubin 0.1 (0.0-0.5) mg/dL AST 54 H (12-35) U/L ALT 32 (4-35) U/L Alkaline Phosphatase 180 H (40-150) U/L Total Protein 7.4 (6.0-8.3) g/dL Albumin 4.9 (3.3-5.0) g/dL Lipase 41 (23-300) U/L Discharge Plan Discharge Clinical Impression: Gastritis, Vomiting Patient Disposition: Home, Self-Care Condition: Improved Additional Instructions: Take medication as needed and indicated. Follow up with MD or return if worsening. Prescriptions: New ondansetron HCl 4 mg tablet 4 mg PO Q6H Qty: 20 0RF metoclopramide HCl [Reglan] 10 mg tablet 10 mg PO Q6H PRN (Reason: nausea and vomiting) Qty: 20 0RF No Action venlafaxine 150 mg capsule,extended release 24hr 150 mg PO DAILY gabapentin 300 mg capsule 300 mg PO HS omeprazole 20 mg capsule,delayed release(DR/EC) 20 mg PO DAILY ondansetron 4 mg tablet,disintegrating 4 mg PO Q8H PRN Probiotic 1 cap PO DAILY amlodipine 5 mg tablet 5 mg PO DAILY cyclobenzaprine 10 mg tablet 10 mg PO HS PRN dextroamphetamine-amphetamine 5 mg tablet 5 mg PO BID Label Comments: take 1.5 tablets (7.5 mg) by mouth 2 times daily ketoconazole 2 % cream TOPICAL ondansetron 4 mg tablet,disintegrating 4 mg PO Q6H Qty: 20 0RF Follow Up/Referrals: Daysi Bowles MD [Primary Care Provider] - Stand Alone [facility]
[2022-08-24 17:30] VITALS: BP 148/99; PULSE 102; RESP 16; O2SAT 97
[2022-08-24] MEDS: GI COCKTAIL (VISC LIDO/ANTACID) 30 ML PO (18:07)
[2022-08-24 18:31] LABS: Basophils Absolute Auto 0.03 K/uL (0.00-0.30); Basophils Percent Auto 0.3 % (0.0-3.0); Eosinophils Absolute Auto 0.02 K/uL (0.00-0.50); Eosinophils Percent Auto 0.2 % (0.0-7.0); Hematocrit 42.2 % (33.0-51.0); Hemoglobin* 14.3 gm/dL (12.0-16.0); Lymphocytes Percent Auto 15.6 % (20-44); Mean Corpuscular HGB Conc 34 gm/dL (32-36); Mean Corpuscular Hemoglobin 30 pg (26-34); Mean Corpuscular Volume 89 fL (80-100); Monocytes Percent Auto 5.8 % (0.0-11.0); Neutrophils Percent Auto 78.1 % (42.0-72.0); Platelet Count* 333 K/uL (140-440); Red Blood Count 4.74 m/uL (4.00-5.20); White Blood Count* 8.79 K/uL (4.50-11.00)
[2022-08-24] MEDS: METOCLOPRAMIDE HCL 5 MG/ML INJ 10 MG IV (18:31)
[2022-08-24] MEDS: 0.9 % SODIUM CHLORIDE 1000 ml 1,000 ML IV (18:32)
[2022-08-24 18:33] LABS: Slide Review Reflex No
[2022-08-24 18:49] LABS: Albumin* 4.9 g/dL (3.3-5.0)
[2022-08-24 18:50] LABS: Chloride* 99 mmol/L (96-114); Potassium* 3.9 mmol/L (3.6-5.1); Sodium* 133 mmol/L (135-149)
[2022-08-24 18:52] LABS: Aspartate Amino Transferase* 54 U/L (12-35); Bilirubin Direct* 0.1 mg/dL (0.0-0.5); Bilirubin Total* 0.7 mg/dL (0.1-1.5); Carbon Dioxide* 24 mmol/L (20-32); Creatinine* 0.8 mg/dL (0.5-1.5); Est. Creatinine Clearance* 82.74; Estimated Glomerular Filt Rate 100 ml/min; Total Protein* 7.4 g/dL (6.0-8.3)
[2022-08-24 18:53] LABS: Alanine Aminotransferase* 32 U/L (4-35); Alkaline Phosphatase* 180 U/L (40-150); Blood Urea Nitrogen* 12 mg/dL (5-24); Calcium* 9.4 mg/dL (8.4-10.6); Glucose* 94 mg/dL (60-115); Lipase* 41 U/L (23-300)
[2022-08-24 19:47] VITALS: BP 138/77; PULSE 98; RESP 16; TEMP 36
== END 2022-08-24 19:47 | disposition home or self-care (01) ==
PROVIDERS: Emergency Provider Emergency Medicine Emergency Medical Services; PCP Family Medicine
DX: K29.70 Gastritis, unspecified, without bleeding (principal); F10.130 Alcohol abuse with withdrawal, uncomplicated
CPT/HCPCS: 36415; 80048; 80076; 83690; 85025; 96374; 99284; A9270; J2765; J7030

== ENCOUNTER 2022-09-22 14:52 | Emergency (ER) | payer MEDICAID, SELFPAY ==
[2022-09-22 15:09] VITALS: BP 120/80; PULSE 110; RESP 20; TEMP 36.3; O2SAT 100; BMI 31.4
== END 2022-09-22 16:52 | disposition left against medical advice (07) ==
PROVIDERS: PCP Family Medicine
DX: Z53.29 Procedure and treatment not carried out because of patient's decision for other reasons (principal)

== ENCOUNTER 2022-09-28 17:51 | Emergency (ER) | payer MEDICAID, SELFPAY ==
[2022-09-28 18:10] VITALS: BP 135/87; PULSE 116; RESP 18; TEMP 37.2; O2SAT 98; BMI 31.9
--- NOTE | 2022-09-28 18:17 | ED.GENADULT ---
HPI - General Adult General Time Seen by Provider: 18:20 Date Seen: 09/28/22 Chief complaint: Nausea/Vomiting Stated complaint: Vomiting Diarrhea Time Seen by Provider: 09/28/22 17:56 Source: patient and RN notes reviewed Mode of arrival: ambulatory Limitations: no limitations History of Present Illness HPI narrative: Kalli is a 32-year-old female coming in with reflux symptoms and regurgitation symptoms for days now. In the last 24 hours she has had diarrhea. She states the only thing different was yesterday she did go to [employer]. The diarrhea has been present for 24 hours, no blood. She states basically ever time she goes the toilet she has some diarrhea. No fevers or chills. She has also noticed edema of her lower extremities for couple of weeks but no shortness of breath, no chest pain. She is on gabapentin and amlodipine but feels like she has been on these long-term. These are not new medicines. Did review with her that these are medicines known to cause edema for some people. She has had no definite ill contacts, no travel. She is not having pain in the legs. She had been on a prescription reflux medicine and she has been out of that for some time. She was using [id number] medication for heartburn which she ran out of days ago. She states she has been sober for 1 month. She was frightened by a a visit recently about a month ago that scared her into sobriety. No alcohol use since then. She is commended on this. Related Data Home Medications Medication Instructions Recorded Confirmed Probiotic 1 cap PO DAILY 05/11/22 09/28/22 gabapentin 300 mg capsule 900 mg PO HS 05/11/22 09/28/22 ondansetron 4 mg disintegrating 4 mg PO Q8H PRN 05/11/22 09/28/22 tablet venlafaxine 150 mg 150 mg PO DAILY 05/11/22 09/28/22 capsule,extended release 24 hr amlodipine 5 mg tablet 5 mg PO DAILY 07/16/22 09/28/22 cyclobenzaprine 10 mg tablet 10 mg PO HS PRN 07/16/22 09/28/22 dextroamphetamine-amphetamine 5 mg 5 mg PO BID 07/16/22 09/28/22 tablet Previous Rx's Medication Instructions Recorded ondansetron 4 mg disintegrating 4 mg PO Q6H #20 tabs 08/03/22 tablet omeprazole 40 mg capsule,delayed 40 mg PO DAILY #30 caps 09/28/22 release Allergies Allergy/AdvReac Type Severity Reaction Status Date / Time latex Allergy Mild Rash Verified 09/28/22 18:09 bupropion [From Wellbutrin] AdvReac Intermediate Mood Verified 09/28/22 18:09 Changes all forms control AdvReac Severe Severe Uncoded 07/16/22 20:01 Mood Changes oxycodone AdvReac Intermediate Anxiety Uncoded 07/16/22 20:03 Review of Systems Status of ROS: Reports: 10 or more systems reviewed and unremarkable except as noted in History and below [facility] Medical History (Updated 09/28/22 @ 20:35 by Radha Caraballo MD) ADHD (attention deficit hyperactivity disorder) Alcohol abuse Anxiety disorder Connective tissue disease Dermatomyositis Fibromyalgia affecting multiple sites TAHIR (generalized anxiety disorder) History of Raynaud's syndrome Migraine PTSD (post-traumatic stress disorder) Substance abuse Unspecified personality disorder Surgical History (Updated 07/16/22 @ 19:49 by Fantasma Oliveira RN) H/O vaginal hysterectomy History of left oophorectomy History of salpingectomy S/P LEEP (loop electrosurgical excision procedure) Social History Smoking Status: Current every day smoker What tobacco products do you use: cigarettes Do you use any of these nicotine containing products: None Second hand tobacco smoke exposure: No How often do you have a drink containing alcohol: never AUDIT-C Alcohol total score: 0 Non-prescribed substance use: denies use and other Non-prescribed substance use details: heroin service: No Exam Const: Vital Signs, click to edit/add: Vital Signs - 24 hr 09/28/22 18:10 Temperature 98.9 F Pulse Rate [Pulse Oximeter] 116 H Respiratory Rate 18 Blood Pressure [Ri ght Upper Arm] 135/87 Pulse Oximetry 98 Oxygen Delivery Me thod Room Air Documenting provider has reviewed patient's vital signs: yes Common normals: no apparent distress, average body habitus, oriented x3, no limitations, healthy appearing and alert General appearance: cooperative, comfortable, well kempt and well developed HENMT: Common normals: normocephalic, head/scalp atraumatic, hearing grossly normal bilaterally, external nose normal, nasal mucous membranes and turbinates normal, moist oral mucous membranes, oropharynx normal and dentition normal Head and scalp: normocephalic and atraumatic Nose: external nose normal and nasal mucous membranes and turbinates normal Eye: Common normals: PERRL, EOMs intact bilaterally, conjunctivae normal and no scleral icterus Conjunctiva: conjunctiva(e) normal Pupil: PERRL Neck & C-Spine: Common normals: full ROM, no lymphadenopathy, supple, no meningeal signs, no JVD and thyroid normal Thyroid: thyroid normal Resp: Common normals: normal respiratory effort, no retractions, no use of accessory muscles and clear to auscultation bilaterally Auscultation: clear to auscultation bilaterally Cardio: Common normals: no JVD, regular rate, regular rhythm, S1 normal heart sound, S2 normal heart sound, no gallops, no clicks and no murmurs Rate: regular rate Rhythm: regular rhythm Heart sounds: S1 normal and S2 normal GI: Common normals: Normal to inspection, nondistended, normoactive bowel sounds present, soft to palpation, non-tender, no hepatosplenomegaly and no masses Palpation: soft and no hepatosplenomegaly Extremity: Other: Has 2+ pitting edema of both lower extremities, no calf tenderness, no overlying skin changes. Neuro: Common normals: oriented x3, CN's II-XII intact bilaterally, moves all extremities, no focal motor deficits, no sensory deficits noted and gait normal Sensorium/orientation: alert Meningeal signs: no meningeal signs Speech: speech normal Psych: Appearance: well kempt Course Course Hospital Course: We will establish an IV give her 4 mg IV Zofran and 40 mg IV Protonix. Will check a full complement of labs. I will do a portable chest x-ray just to make sure the architecture of the lungs and heart look normal. Some of her symptomatology may end up needing to be further evaluated in clinic. Will also do a screening COVID and influenza as GI symptoms can be part of these illnesses. She is in agreement to that. I do not think she needs any other imaging or any advanced imaging at this time but will see where her labs come back and how she does clinically with the medicines. Reevaluation(s) Reevaluation #1: Patient is still experiencing some bubbling and then she will get an acid taste in her mouth and burning. We did review that proton pump inhibitors may not work immediately. She may need to give this a couple weeks that she has been off of them for while. Also reviewed with her that if she had ongoing symptoms despite being on a proton pump inhibitor, EGD may need to be considered. There is other testing that is not part of the emergency room evaluation. We did briefly talk about Juarez study. She requested a GI cocktail, I am happy to provide her with this. Reviewed that it was just waiting for her thyroid to come back as it had not been back as of this time. She would like to go home after the GI cocktail which I think is fine. If the TSH is not back by that time, I will only notify her if it is abnormal. No notification would mean that this is a normal test. Time: 20:29 Vital Signs Vital signs: Initial Vital Signs Temperature 98.9 F 09/28/22 18:10 Temperature Source Temporal Artery Scan 09/28/22 18:10 Pulse Rate 116 H 09/28/22 18:10 Respiratory Rate 18 09/28/22 18:10 Blood Pressure 135/87 09/28/22 18:10 Blood Pressure Mean 103 09/28/22 18:10 Blood Pressure Position Sitting 09/28/22 18:10 Pulse Oximetry 98 09/28/22 18:10 Oxygen Delivery Method 09/28/22 18:10 Vital Signs Temperature 98.9 F 09/28/22 18:10 Pulse Rate 116 H 09/28/22 18:10 Respiratory Rate 18 09/28/22 18:10 Blood Pressure 135/87 09/28/22 18:10 Pulse Oximetry 98 09/28/22 18:10 Oxygen Delivery Method 09/28/22 18:10 Temperature 98.9 F 09/28/22 18:10 Pulse Rate 116 H 09/28/22 18:10 Respiratory Rate 18 09/28/22 18:10 Blood Pressure 135/87 09/28/22 18:10 Pulse Oximetry 98 09/28/22 18:10 Oxygen Delivery Method 09/28/22 18:10 Medical Decision Making Lab Data Lab results reviewed: Yes I reviewed the patient's lab results Labs: Lab Results 09/28/22 09/28/22 09/28/22 Range/Units 18:42 18:52 18:52 WBC 9.25 (4.50-11.00) K/uL RBC 4.72 (4.00-5.20) m/uL Hgb 14.2 (12.0-16.0) gm/dL Hct 41.8 (33.0-51.0) % MCV 89 (80-100) fL MCH 30 (26-34) pg MCHC 34 (32-36) gm/dL RDW Coeff of Tray 11.8 (11.5-15.5) % Plt Count 353 (140-440) K/uL Neut % (Auto) 76.8 H (42.0-72.0) % Lymph % (Auto) 15.4 L (20-44) % Starke % (Auto) 5.5 (0.0-11.0) % Eos % (Auto) 1.5 (0.0-7.0) % Baso % (Auto) 0.4 (0.0-3.0) % Neut # (Auto) 7.10 H (1.7-7.0) K/uL Lymph # (Auto) 1.40 (0.90-2.90) K/uL Starke # (Auto) 0.50 (0.00-0.90) K/UL Eos # (Auto) 0.14 (0.00-0.50) K/uL Baso # (Auto) 0.04 (0.00-0.30) K/uL Abs Immat Gran (auto) 0.04 (0.00-0.30) K/uL Imm/Tot Granulo (auto) 0.4 % Sodium 139 (135-149) mmol/L Potassium 3.4 L (3.6-5.1) mmol/L Chloride 101 (96-114) mmol/L Carbon Dioxide 29 (20-32) mmol/L BUN 9 (5-24) mg/dL Creatinine 0.7 (0.5-1.5) mg/dL Estimated Creat Clear 94.56 Estimated GFR 117 ml/min Glucose 109 (60-115) mg/dL Calcium 8.5 (8.4-10.6) mg/dL Magnesium 2.7 H (1.5-2.6) mg/dL Total Bilirubin 0.4 (0.1-1.5) mg/dL AST 72 H (12-35) U/L ALT 51 H (4-35) U/L Alkaline Phosphatase 153 H (40-150) U/L C-Reactive Protein < 0.5 L (0.5-1.0) mg/dL Total Protein 7.7 (6.0-8.3) g/dL Albumin 4.8 (3.3-5.0) g/dL TSH (0.270-4.200) uIU/mL SARS-CoV-2 (PCR) Negative SARS-CoV-2 (Negative) Influenza Type A (PCR) Negative PCR FLU A (Negative) Influenza Type B (PCR) Negative PCR FLU B (Negative) POC Troponin I (0.01-0.04) ng/ml 09/28/22 09/28/22 Range/Units 18:52 18:52 WBC (4.50-11.00) K/uL RBC (4.00-5.20) m/uL Hgb (12.0-16.0) gm/dL Hct (33.0-51.0) % MCV (80-100) fL MCH (26-34) pg MCHC (32-36) gm/dL RDW Coeff of Tray (11.5-15.5) % Plt Count (140-440) K/uL Neut % (Auto) (42.0-72.0) % Lymph % (Auto) (20-44) % Starke % (Auto) (0.0-11.0) % Eos % (Auto) (0.0-7.0) % Baso % (Auto) (0.0-3.0) % Neut # (Auto) (1.7-7.0) K/uL Lymph # (Auto) (0.90-2.90) K/uL Starke # (Auto) (0.00-0.90) K/UL Eos # (Auto) (0.00-0.50) K/uL Baso # (Auto) (0.00-0.30) K/uL Abs Immat Gran (auto) (0.00-0.30) K/uL Imm/Tot Granulo (auto) % Sodium (135-149) mmol/L Potassium (3.6-5.1) mmol/L Chloride (96-114) mmol/L Carbon Dioxide (20-32) mmol/L BUN (5-24) mg/dL Creatinine (0.5-1.5) mg/dL Estimated Creat Clear Estimated GFR ml/min Glucose (60-115) mg/dL Calcium (8.4-10.6) mg/dL Magnesium (1.5-2.6) mg/dL Total Bilirubin (0.1-1.5) mg/dL AST (12-35) U/L ALT (4-35) U/L Alkaline Phosphatase (40-150) U/L C-Reactive Protein (0.5-1.0) mg/dL Total Protein (6.0-8.3) g/dL Albumin (3.3-5.0) g/dL TSH 2.480 (0.270-4.200) uIU/mL SARS-CoV-2 (PCR) (Negative) Influenza Type A (PCR) (Negative) Influenza Type B (PCR) (Negative) POC Troponin I 0.00 L (0.01-0.04) ng/ml Imaging Data Chest x-ray: Attestation: I have reviewed the pertinent imaging results. My impression: My preliminary review of her portable chest x-ray is no acute cardiopulmonary pathology. Radiologist's impression: Patient: [facility] Facility:?[facility] Patient ID:?[id number] Site Patient ID:?[id number]. Site :?[id number] Study:?XRay Chest PORTABLE-09/28/2022 6:51:37 PM Ordering Physician:?Rashmi Garcia Final Report: INDICATION: Edema. TECHNIQUE: Chest 1 views. COMPARISON: 04/25/2017. FINDINGS: Cardiovasculature and mediastinum: Heart size and vasculature are normal in caliber and appearance. Lungs and pleural spaces: Lungs are clear. No sign of infiltrate or mass. No sign of pleural effusion. No pneumothorax. Bones and soft tissues: No significant findings. IMPRESSION: No acute findings and no significant changes from the prior exam. Dictated by Jay Styles MD @ 09/28/2022 7:05:34 PM (Electronic Signature) Discharge Plan Discharge Clinical Impression: Diarrhea, Chronic GERD, Edema, peripheral Patient Disposition: Home, Self-Care Condition: Stable Instructions: GERD (Gastroesophageal Reflux Disease) (ED), Acute Diarrhea (ED), Leg Edema (ED) Additional Instructions: Need to start omeprazole and take as prescribed. Keep your clinic appointment that you have stated is scheduled for followup. Need to review your GERD symptoms, your lower extremity edema. If your diarrhea is not stopping in the next couple of days, need to follow up in clinic for re-evaluation of this. If you have ongoing GERD symptoms, and EGD may be indicated in would need to be ordered by your primary care provider. Prescriptions: New omeprazole 40 mg capsule,delayed release(DR/EC) 40 mg PO DAILY Qty: 30 0RF No Action venlafaxine 150 mg capsule,extended release 24hr 150 mg PO DAILY gabapentin 300 mg capsule 900 mg PO HS ondansetron 4 mg tablet,disintegrating 4 mg PO Q8H PRN Probiotic 1 cap PO DAILY amlodipine 5 mg tablet 5 mg PO DAILY cyclobenzaprine 10 mg tablet 10 mg PO HS PRN dextroamphetamine-amphetamine 5 mg tablet 5 mg PO BID Hold Instructions: Order Change Label Comments: take 1.5 tablets (7.5 mg) by mouth 2 times daily ondansetron 4 mg tablet,disintegrating 4 mg PO Q6H Qty: 20 0RF Follow Up/Referrals: Daysi Bowles MD [Primary Care Provider] - Stand Alone Forms: [facility] Info Instructions
[2022-09-28 18:27] VITALS: O2SAT 100
--- NOTE | 2022-09-28 18:27 | CRLHL7_ITS ---
For Patients: As a result of the Century Cures Act, medical imaging exams and procedure reports are released immediately into your electronic medical record. You may view this report before your referring provider. If you have questions, please contact your health care provider. INDICATION: Edema. TECHNIQUE: Chest 1 views. COMPARISON: 04/25/2017. FINDINGS: Cardiovasculature and mediastinum: Heart size and vasculature are normal in caliber and appearance. Lungs and pleural spaces: Lungs are clear. No sign of infiltrate or mass. No sign of pleural effusion. No pneumothorax. Bones and soft tissues: No significant findings. IMPRESSION: No acute findings and no significant changes from the prior exam. Dictated by Jay Styles MD @ 09/28/2022 7:05:34 PM (Electronically Signed)
[2022-09-28] MEDS: PANTOPRAZOLE SODIUM 40 MG INJ IVP (18:47)
[2022-09-28] MEDS: ONDANSETRON 2 MG/ML inj 4 MG IVP (18:47)
[2022-09-28 19:02] LABS: Basophils Absolute Auto 0.04 K/uL (0.00-0.30); Basophils Percent Auto 0.4 % (0.0-3.0); Eosinophils Absolute Auto 0.14 K/uL (0.00-0.50); Eosinophils Percent Auto 1.5 % (0.0-7.0); Hematocrit 41.8 % (33.0-51.0); Hemoglobin* 14.2 gm/dL (12.0-16.0); Immature Granulocytes Abs Auto 0.04 K/uL (0.00-0.30); Immature Granulocytes Pct Auto 0.4 %; Lymphocytes Percent Auto 15.4 % (20-44); Mean Corpuscular HGB Conc 34 gm/dL (32-36); Mean Corpuscular Hemoglobin 30 pg (26-34); Mean Corpuscular Volume 89 fL (80-100); Monocytes Percent Auto 5.5 % (0.0-11.0); Neutrophils Percent Auto 76.8 % (42.0-72.0); Platelet Count* 353 K/uL (140-440); RDW Coefficient of Variation % 11.8 % (11.5-15.5); Red Blood Count 4.72 m/uL (4.00-5.20); White Blood Count* 9.25 K/uL (4.50-11.00)
[2022-09-28 19:14] LABS: Slide Review Reflex No
[2022-09-28 19:18] LABS: Albumin* 4.8 g/dL (3.3-5.0); Chloride* 101 mmol/L (96-114); Sodium* 139 mmol/L (135-149)
[2022-09-28 19:19] LABS: Potassium* 3.4 mmol/L (3.6-5.1)
[2022-09-28 19:21] LABS: Bilirubin Total* 0.4 mg/dL (0.1-1.5); Creatinine* 0.7 mg/dL (0.5-1.5); Est. Creatinine Clearance* 94.56; Estimated Glomerular Filt Rate 117 ml/min
[2022-09-28 19:22] LABS: Alanine Aminotransferase* 51 U/L (4-35); Alkaline Phosphatase* 153 U/L (40-150); Aspartate Amino Transferase* 72 U/L (12-35); Blood Urea Nitrogen* 9 mg/dL (5-24); Calcium* 8.5 mg/dL (8.4-10.6); Carbon Dioxide* 29 mmol/L (20-32); Glucose* 109 mg/dL (60-115); Total Protein* 7.7 g/dL (6.0-8.3)
[2022-09-28 19:23] LABS: Magnesium* 2.7 mg/dL (1.5-2.6)
[2022-09-28 19:25] LABS: C Reactive Protein* < 0.5 mg/dL (0.5-1.0)
[2022-09-28 19:39] LABS: PCR FLU A Negative PCR FLU A (Negative); PCR FLU B Negative PCR FLU B (Negative)
[2022-09-28 19:49] LABS: SARS PCR* Negative SARS-CoV-2 (Negative)
[2022-09-28] MEDS: GI COCKTAIL (VISC LIDO/ANTACID) 30 ML PO (20:43)
--- NOTE | 2022-09-28 20:50 | ED.NURSE ---
Pt self removed IV.
== END 2022-09-28 20:49 | disposition home or self-care (01) ==
PROVIDERS: Emergency Provider Family Medicine; PCP Family Medicine
DX: K21.9 Gastro-esophageal reflux disease without esophagitis (principal); R19.7 Diarrhea, unspecified; R60.0 Localized edema
CPT/HCPCS: 36415; 71045; 80053; 83735; 84443; 84484; 85025; 86140; 87631; 94761; 96374; 96375; 99284; A9270; C9113; J2405

== ENCOUNTER 2022-10-30 11:14 | Emergency (ER) | payer MEDICAID, SELFPAY ==
[2022-10-30 11:33] VITALS: BP 112/83; PULSE 116; RESP 20; TEMP 36; O2SAT 94; BMI 31.9
--- NOTE | 2022-10-30 11:41 | CRLHL7_ITS ---
For Patients: As a result of the Cures Act, medical imaging exams and procedure reports are released immediately into your electronic medical record. You may view this report before your referring provider. If you have questions, please contact your health care provider. INDICATION: Cough. TECHNIQUE: Chest 2 views. IMPRESSION: Heart size normal. Increased patchy markings left lower lobe. This could indicate early pneumonia or atelectasis. Some central bronchial wall thickening similar to previous or minimally increased. This could also be seen in the setting of a viral illness. Correlate with symptoms. No effusion or pneumothorax. Normal pulmonary vascular markings. COMPARISON: September 28, 2022. Dictated by Stephen Caballero MD @ 10/30/2022 12:07:57 PM (Electronically Signed)
--- NOTE | 2022-10-30 11:42 | ED_ITS ---
HPI - General Adult General Chief complaint: Cough Stated complaint: Cough, body aches, fever Time Seen by Provider: 10/30/22 11:26 History of Present Illness HPI narrative: This 32-year-old female comes in reporting a couple weeks of upper respiratory symptoms. She states that she felt better but got suddenly worse a couple days ago with subjective fever, cough, and nasal congestion. Related Data Home Medications Medication Instructions Recorded Confirmed Probiotic 1 cap PO DAILY 05/11/22 09/28/22 gabapentin 300 mg capsule 900 mg PO HS 05/11/22 09/28/22 ondansetron 4 mg disintegrating 4 mg PO Q8H PRN 05/11/22 09/28/22 tablet venlafaxine 150 mg 150 mg PO DAILY 05/11/22 09/28/22 capsule,extended release 24 hr amlodipine 5 mg tablet 5 mg PO DAILY 07/16/22 09/28/22 cyclobenzaprine 10 mg tablet 10 mg PO HS PRN 07/16/22 09/28/22 dextroamphetamine-amphetamine 5 mg 5 mg PO BID 07/16/22 09/28/22 tablet Previous Rx's Medication Instructions Recorded ondansetron 4 mg disintegrating 4 mg PO Q6H #20 tabs 08/03/22 tablet omeprazole 40 mg capsule,delayed 40 mg PO DAILY #30 caps 09/28/22 release azithromycin 250 mg tablet 250 mg PO DAILY #6 tabs 10/30/22 (Zithromax Z-Abimael) Allergies Allergy/AdvReac Type Severity Reaction Status Date / Time latex Allergy Mild Rash Verified 09/28/22 18:09 bupropion [From Wellbutrin] AdvReac Intermediate Mood Verified 09/28/22 18:09 Changes all forms control AdvReac Severe Severe Uncoded 07/16/22 20:01 Mood Changes oxycodone AdvReac Intermediate Anxiety Uncoded 07/16/22 20:03 Review of Systems Status of ROS: Reports: 10 or more systems reviewed and unremarkable except as noted in History and below Narrative: Constitutional: No fevers, no weight gain or loss. Eyes: No discharge. No vision changes. HENT: Nasal congestion. no sore throat, no ear pain. Cardiovascular: No chest pain, no palpitations. Respiratory: No shortness of breath, no wheezes. Frequent coughing. Gastrointestinal: No abdominal pain, no vomiting, no diarrhea. Genitourinary: No dysuria, no hematuria. Musculoskeletal: Normal range of motion. Skin: No rashes, no pruritis. Neurological: No dizziness, weakness, sensory change, speech change. Endo/Heme/Allergies: No bruising or bleeding. No polydipsia. Pysch: no suicidality, no anxiety, no insomnia. All other systems reviewed and are negative. [facility] Medical History (Updated 10/30/22 @ 13:56 by Kevin Dyson MD) ADHD (attention deficit hyperactivity disorder) Alcohol abuse Anxiety disorder Connective tissue disease Dermatomyositis Fibromyalgia affecting multiple sites TAHIR (generalized anxiety disorder) History of Raynaud's syndrome Migraine PTSD (post-traumatic stress disorder) Substance abuse Unspecified personality disorder Surgical History (Updated 07/16/22 @ 19:49 by Fantasma Oliveira RN) H/O vaginal hysterectomy History of left oophorectomy History of salpingectomy S/P LEEP (loop electrosurgical excision procedure) Social History Smoking Status: Current every day smoker What tobacco products do you use: cigarettes Do you use any of these nicotine containing products: None Second hand tobacco smoke exposure: No How often do you have a drink containing alcohol: never AUDIT-C Alcohol total score: 0 Non-prescribed substance use: marijuana (any form) service: No Exam Const: Vital Signs, click to edit/add: Vital Signs - 24 hr 10/30/22 11:33 Temperature 96.8 F L Pulse Rate [Right Pulse Oximeter] 116 H Respiratory Rate 20 Blood Pressure [Ri ght Upper Arm] 112/83 Pulse Oximetry 94 Oxygen Delivery Me thod Room Air Course Vital Signs Vital signs: Initial Vital Signs Temperature 96.8 F L 10/30/22 11:33 Temperature Source Temporal Artery Scan 10/30/22 11:33 Pulse Rate 116 H 10/30/22 11:33 Respiratory Rate 20 10/30/22 11:33 Blood Pressure 112/83 10/30/22 11:33 Blood Pressure Mean 92 10/30/22 11:33 Blood Pressure Position Sitting 10/30/22 11:33 Pulse Oximetry 94 10/30/22 11:33 Oxygen Delivery Method 10/30/22 11:33 Vital Signs Temperature 96.8 F L 10/30/22 11:33 Pulse Rate 116 H 10/30/22 11:33 Respiratory Rate 20 10/30/22 11:33 Blood Pressure 112/83 10/30/22 11:33 Pulse Oximetry 94 10/30/22 11:33 Oxygen Delivery Method 10/30/22 11:33 Temperature 96.8 F L 10/30/22 11:33 Pulse Rate 116 H 10/30/22 11:33 Respiratory Rate 20 10/30/22 11:33 Blood Pressure 112/83 10/30/22 11:33 Pulse Oximetry 94 10/30/22 11:33 Oxygen Delivery Method 10/30/22 11:33 Medical Decision Making MDM Narrative Medical decision making narrative: This patient comes in with 2 weeks of upper respiratory symptoms that worsened significantly a couple days ago after feeling better prior to that. Nasal pharyngeal swab returns negative for COVID, influenza, and RSV. Additionally a chest x-ray is negative for pneumonia. The patient did receive an oral dose of dexamethasone 10 mg. Her worsening symptoms over these past couple weeks does generate some suspicion of a secondary infection. I did prescribe Zithromax but indicated that this is still most likely a virus. Lab Data Labs: Lab Results 10/30/22 Range/Units 11:41 SARS-CoV-2 (PCR) Negative SARS-CoV-2 (Negative) Influenza Type A (PCR) Negative PCR FLU A (Negative) Influenza Type B (PCR) Negative PCR FLU B (Negative) RSV (PCR) Negative PCR RSV (Negative) Imaging Data Chest x-ray: Radiologist's impression: Heart size normal. Increased patchy markings left lower lobe. This could indicate early pneumonia or atelectasis. Some central bronchial wall thickening similar to previous or minimally increased. This could also be seen in the setting of a viral illness. Correlate with symptoms. No effusion or pneumothorax. Normal pulmonary vascular markings. Discharge Plan Discharge Clinical Impression: Acute lower respiratory infection Patient Disposition: Home, Self-Care Condition: Stable Additional Instructions: Take medication as prescribed. Follow up with MD or return if worsening. Prescriptions: New azithromycin [Zithromax Z-Abimael] 250 mg tablet 250 mg PO DAILY Qty: 6 0RF No Action venlafaxine 150 mg capsule,extended release 24hr 150 mg PO DAILY gabapentin 300 mg capsule 900 mg PO HS ondansetron 4 mg tablet,disintegrating 4 mg PO Q8H PRN Probiotic 1 cap PO DAILY amlodipine 5 mg tablet 5 mg PO DAILY cyclobenzaprine 10 mg tablet 10 mg PO HS PRN dextroamphetamine-amphetamine 5 mg tablet 5 mg PO BID Hold Instructions: Order Change Label Comments: take 1.5 tablets (7.5 mg) by mouth 2 times daily omeprazole 40 mg capsule,delayed release(DR/EC) 40 mg PO DAILY Qty: 30 0RF ondansetron 4 mg tablet,disintegrating 4 mg PO Q6H Qty: 20 0RF Follow Up/Referrals: Daysi Bowles MD [Primary Care Provider] - Stand Alone [facility]: [facility] Inst[facility]
[2022-10-30] MEDS: dexAMETHasone 10 MG/ML inj PO (11:59)
[2022-10-30 13:34] LABS: PCR FLU A Negative PCR FLU A (Negative); PCR FLU B Negative PCR FLU B (Negative); PCR RSV Negative PCR RSV (Negative)
[2022-10-30 13:38] LABS: SARS PCR* Negative SARS-CoV-2 (Negative)
== END 2022-10-30 14:03 | disposition home or self-care (01) ==
PROVIDERS: Emergency Provider Emergency Medicine Emergency Medical Services; PCP Family Medicine
DX: J22 Unspecified acute lower respiratory infection (principal)
CPT/HCPCS: 71046; 87502; 87634; 87635; 99284; J1100

== ENCOUNTER 2022-11-17 08:57 | Emergency (ER) | payer MEDICAID, SELFPAY ==
[2022-11-17 09:08] VITALS: BP 118/85; PULSE 115; RESP 16; TEMP 36.7; O2SAT 97; BMI 31.9
--- NOTE | 2022-11-17 09:28 | CRLHL7_ITS ---
For Patients: As a result of the Cures Act, medical imaging exams and procedure reports are released immediately into your electronic medical record. You may view this report before your referring provider. If you have questions, please contact your health care provider. INDICATION: Left rib pain after coughing COMPARISON: Chest x-ray 10/30/2022 TECHNIQUE: Two views left ribs. FINDINGS: Left basilar parenchymal densities again noted. Oblique detail views of the ribs demonstrate no evidence of fracture or intrinsic bone lesion. There is no evidence of pleural hematoma. IMPRESSION: Persistent left basilar infiltrate. No acute fracture. Dictated by Daryn Rawls MD @ 11/17/2022 9:54:14 AM (Electronically Signed)
[2022-11-17] MEDS: IBUPROFEN 400 MG TABLET 800 MG PO (09:32)
[2022-11-17 10:22] VITALS: BP 125/95; PULSE 92; O2SAT 96
--- NOTE | 2022-11-17 10:31 | ED_ITS ---
HPI - General Adult General Chief complaint: Rib Pain Stated complaint: Left side pain Time Seen by Provider: 11/17/22 09:11 Source: patient Mode of arrival: ambulatory Limitations: no limitations History of Present Illness HPI narrative: 32-year-old female presents with left posterior rib pain for the past couple of weeks, started after an upper respiratory infection, evaluated here in the ED, started on azithromycin. Patient reports that the pain became severe this morning, she woke up coughing at 4:00 a.m. and has had severe pain ever since, worried about a displaced rib. The cough has not really worsened, there has been no fever, no hemoptysis. Cough is nonproductive. She is an active smoker and is not interested in cessation at this time, has had pneumonia a few times before. Did not try taking any Tylenol or ibuprofen to help with her symptoms. She recently completed alcohol treatment program, has no history of opiate addiction. Would like to drive herself home today and therefore declines any stronger pain medicine, I offer ibuprofen and she accepts offer. No GI symptoms, no injury or trauma. Did not try any interventions prior to coming to the ED. No severe dyspnea. Past medical history notable for alcoholism, ADHD, hypertension, depression and bipolar. Home meds reviewed, accurate per outpatient records. Socially continues to smoke cigarettes, no longer drinking alcohol, no history of opiate addiction. No pertinent travel. ROS is notable for the respiratory, musculoskeletal and generalized symptoms as above, otherwise denies times 12 systems. Related Data Home Medications Medication Instructions Recorded Confirmed Probiotic 1 cap PO DAILY 05/11/22 11/17/22 gabapentin 300 mg capsule 900 mg PO HS 05/11/22 11/17/22 ondansetron 4 mg disintegrating 4 mg PO Q8H PRN 05/11/22 11/17/22 tablet venlafaxine 150 mg 150 mg PO DAILY 05/11/22 11/17/22 capsule,extended release 24 hr amlodipine 5 mg tablet 5 mg PO DAILY 07/16/22 11/17/22 cyclobenzaprine 10 mg tablet 10 mg PO HS PRN 07/16/22 11/17/22 dextroamphetamine-amphetamine 5 mg 5 mg PO BID 07/16/22 11/17/22 tablet hydrochlorothiazide 12.5 mg tablet 12.5 mg PO DAILY 11/17/22 11/17/22 quetiapine 25 mg tablet 25 mg PO DAILY 11/17/22 11/17/22 Previous Rx's Medication Instructions Recorded ondansetron 4 mg disintegrating 4 mg PO Q6H #20 tabs 08/03/22 tablet omeprazole 40 mg capsule,delayed 40 mg PO DAILY #30 caps 09/28/22 release acetaminophen 300 mg-codeine 30 mg 1 tab PO Q8H PRN pain #10 tabs 11/17/22 tablet levofloxacin 500 mg tablet 500 mg PO DAILY #9 tabs 11/17/22 Allergies Allergy/AdvReac Type Severity Reaction Status Date / Time latex Allergy Mild Rash Verified 11/17/22 09:13 bupropion [From Wellbutrin] AdvReac Intermediate Mood Verified 11/17/22 09:13 Changes oxycodone AdvReac Intermediate Anxiety Uncoded 07/16/22 20:03 PFSH [facility] Medical History (Updated 11/17/22 @ 10:29 by Brooklyn Garcia MD) ADHD (attention deficit hyperactivity disorder) Alcohol abuse Anxiety disorder Connective tissue disease Dermatomyositis Fibromyalgia affecting multiple sites TAHIR (generalized anxiety disorder) History of Raynaud's syndrome Migraine PTSD (post-traumatic stress disorder) Substance abuse Unspecified personality disorder Surgical History (Updated 07/16/22 @ 19:49 by Fantasma Oliveiar RN) H/O vaginal hysterectomy History of left oophorectomy History of salpingectomy S/P LEEP (loop electrosurgical excision procedure) Social History Smoking Status: Current every day smoker What tobacco products do you use: cigarettes Do you use any of these nicotine containing products: Vaping Products Second hand tobacco smoke exposure: No How often do you have a drink containing alcohol: never AUDIT-C Alcohol total score: 0 Non-prescribed substance use: marijuana (any form) service: No Exam Const: Vital Signs, click to edit/add: Vital Signs - 24 hr 11/17/22 09:08 11/17/22 10:22 Temperature 98.1 F Pulse Rate [Right Pulse Oximeter] 115 H 92 Respiratory Rate 16 Blood Pressure [Ri ght Upper Arm] 118/85 125/95 H Pulse Oximetry 97 96 Oxygen Delivery Me thod Room Air Room Air Documenting provider has reviewed patient's vital signs: yes Other: Appears to be in moderate discomfort from pain. Answers questions appropriately, no respiratory distress. HENMT: Common normals: normocephalic and head/scalp atraumatic Head and scalp: normocephalic and atraumatic Mouth: oral and palatal mucosa normal Throat: posterior oropharynx normal Eye: Common normals: conjunctivae normal General eye: normal appearance of both eyes Conjunctiva: conjunctiva(e) normal Neck & C-Spine: Common normals: no lymphadenopathy Chest: Common normals: inspection of chest normal and palpation of chest norm al (Tenderness to left posterior ribs only. No crepitus or deformity. No air.) Resp: Common normals: normal respiratory effort Effort & inspection: able to speak in complete sentences Other: Faint crackles in left base only, no wheeze Cardio: Common normals: regular rate, regular rhythm, S1 normal heart sound, S2 normal heart sound and no murmurs Rate: regular rate Rhythm: regular rhythm Heart sounds: S1 normal and S2 normal GI: Common normals: Normal to inspection, nondistended, normoactive bowel sounds present, soft to palpation, non-tender, no hepatosplenomegaly and no masses Palpation: soft and no hepatosplenomegaly : Common normals: no CVA tenderness Bladder/kidney exam: no CVA tenderness Back & Pelvis: Common normals: no CVA tenderness Neuro: Motor exam: strength 5/5 throughout, no tremor noted and no movement abnormalities noted Psych: Common normals: speech normal Activity/motor behavior: appropriate eye contact Speech: normal speech Mood and affect: anxious Insight: fair Judgement: judgment good Skin: Common normals: no rashes or lesions noted General skin exam: no rashes or lesions noted Course Vital Signs Vital signs: Initial Vital Signs Temperature 98.1 F 11/17/22 09:08 Temperature Source Temporal Artery Scan 11/17/22 09:08 Pulse Rate 115 H 11/17/22 09:08 Respiratory Rate 16 11/17/22 09:08 Blood Pressure 118/85 11/17/22 09:08 Blood Pressure Mean 96 11/17/22 09:08 Pulse Oximetry 97 11/17/22 09:08 Oxygen Delivery Method 11/17/22 09:08 Vital Signs Temperature 98.1 F 11/17/22 09:08 Pulse Rate 115 H 11/17/22 09:08 Respiratory Rate 16 11/17/22 09:08 Blood Pressure 118/85 11/17/22 09:08 Pulse Oximetry 97 11/17/22 09:08 Oxygen Delivery Method 11/17/22 09:08 Temperature 98.1 F 11/17/22 09:08 Pulse Rate 92 11/17/22 10:22 Respiratory Rate 16 11/17/22 09:08 Blood Pressure 125/95 H 11/17/22 10:22 Pulse Oximetry 96 11/17/22 10:22 Oxygen Delivery Method 11/17/22 10:22 Medical Decision Making MDM Narrative Medical decision making narrative: Pain did improve somewhat with ibuprofen, tachycardia has resolved and is more visibly comfortable. Discussed x-ray findings. Persistent focal consolidation noted as compared to x-ray earlier in month. This is per my interpretation, confirmed with radiology report. No signs of any cardiac disease. Discussed plan of care, begin levofloxacin, symptomatic treatment for pleurisy. Alarm symptoms reviewed and discussed. Patient verbalizes understanding and agreement. Discharge Plan Discharge Clinical Impression: Pleurisy, Pneumonia Patient Disposition: Home, Self-Care Condition: Improved Instructions: Pleurisy (DC) Additional Instructions: The rib pain is from persistent infection, and irritation of the lining of the lungs notice pleurisy. This will hurt for several weeks. I have sent a new prescription for antibiotics, you are already given today's dose here in the emergency department. There will be a few Tylenol with codeine if you need for severe pain. For most people, ibuprofen or Aleve is the best management for your pain. It is okay to use a heating pad, hot packs, ice packs what ever feels good to help with pain control. If things are not starting to improve in 4 weeks, I would recommend outpatient follow-up for long-term management. Any severe respiratory symptoms, fevers over 100.4, severe shortness of breath or coughing up of blood would warrant repeat ER evaluation. Prescriptions: New levofloxacin 500 mg tablet 500 mg PO DAILY Qty: 9 0RF acetaminophen-codeine 300-30 mg tablet 1 tab PO Q8H PRN (Reason: pain) Qty: 10 0RF No Action venlafaxine 150 mg capsule,extended release 24hr 150 mg PO DAILY gabapentin 300 mg capsule 900 mg PO HS ondansetron 4 mg tablet,disintegrating 4 mg PO Q8H PRN Probiotic 1 cap PO DAILY amlodipine 5 mg tablet 5 mg PO DAILY cyclobenzaprine 10 mg tablet 10 mg PO HS PRN dextroamphetamine-amphetamine 5 mg tablet 5 mg PO BID Hold Instructions: Order Change Label Comments: take 1.5 tablets (7.5 mg) by mouth 2 times daily omeprazole 40 mg capsule,delayed release(DR/EC) 40 mg PO DAILY Qty: 30 0RF hydrochlorothiazide 12.5 mg tablet 12.5 mg PO DAILY quetiapine 25 mg tablet 25 mg PO DAILY Label Comments: TAKE 1/2 TABLET BY MOUTH AT BEDTIME FOR 3 DAYS. INCREASE 1 TABLET BY MOUTH AT BEDTIME ondansetron 4 mg tablet,disintegrating 4 mg PO Q6H Qty: 20 0RF Follow Up/Referrals: Daysi Bowles MD [Primary Care Provider] - Stand Alone Forms: [employer] Info Instructions
[2022-11-17] MEDS: levoFLOXacin 500 MG TABLET PO (10:38)
== END 2022-11-17 10:43 | disposition home or self-care (01) ==
PROVIDERS: Emergency Provider Family Medicine; PCP Family Medicine
DX: R09.1 Pleurisy (principal); J18.9 Pneumonia, unspecified organism
CPT/HCPCS: 71101; 99283; 99284; A9270

== ENCOUNTER 2022-12-04 10:43 | Emergency (ER) | payer MEDICAID, SELFPAY ==
[2022-12-04 11:08] VITALS: BP 130/84; PULSE 118; RESP 24; TEMP 36.6; O2SAT 96; BMI 31.9
--- NOTE | 2022-12-04 13:26 | ED_ITS ---
HPI - General Adult General Time Seen by Provider: 13:26 Date Seen: 12/04/22 Chief complaint: Nausea/Vomiting Stated complaint: Nausea/vomiting Time Seen by Provider: 12/04/22 13:14 Source: patient and RN notes reviewed Mode of arrival: ambulatory Limitations: no limitations History of Present Illness HPI narrative: Kalli is a 32-year-old female coming in with nausea vomiting, shaking. She states she started drinking last night again. She had been abstinent for some time. She was at home drinking, states she drinks so much that she actually blacked out, had urinary incontinence. She is tearful about this. She is shaky and is dry heaving. She states she is having violent dry heaves. She does not remember events last night. She assures me she was at home though. I question her whether she was drinking with other people and it sounds as if she was at home by herself. She does remember getting bruising on the back of her right arm from a fall but this is before blacking out. It does not hurt her to move this arm. She is to sore at the bruise parts. Denies any significant headache but states her whole abdomen hurts. Related Data Home Medications Medication Instructions Recorded Confirmed Probiotic 1 cap PO DAILY 05/11/22 12/04/22 gabapentin 300 mg capsule 900 mg PO HS 05/11/22 12/04/22 ondansetron 4 mg disintegrating 4 mg PO Q8H PRN 05/11/22 12/04/22 tablet venlafaxine 150 mg 150 mg PO DAILY 05/11/22 12/04/22 capsule,extended release 24 hr amlodipine 5 mg tablet 5 mg PO DAILY 07/16/22 12/04/22 cyclobenzaprine 10 mg tablet 10 mg PO HS PRN 07/16/22 12/04/22 dextroamphetamine-amphetamine 5 mg 5 mg PO BID 07/16/22 12/04/22 tablet hydrochlorothiazide 12.5 mg tablet 12.5 mg PO DAILY 11/17/22 12/04/22 quetiapine 25 mg tablet 25 mg PO DAILY 11/17/22 12/04/22 Previous Rx's Medication Instructions Recorded ondansetron 4 mg disintegrating 4 mg PO Q6H #20 tabs 08/03/22 tablet omeprazole 40 mg capsule,delayed 40 mg PO DAILY #30 caps 09/28/22 release acetaminophen 300 mg-codeine 30 mg 1 tab PO Q8H PRN pain #10 tabs 11/17/22 tablet levofloxacin 500 mg tablet 500 mg PO DAILY #9 tabs 11/17/22 Allergies Allergy/AdvReac Type Severity Reaction Status Date / Time latex Allergy Mild Rash Verified 12/04/22 11:14 oxycodone Allergy Mild Anxiety Verified 12/04/22 11:14 bupropion [From Wellbutrin] AdvReac Intermediate Mood Verified 12/04/22 11:14 Changes Review of Systems Status of ROS: Reports: 10 or more systems reviewed and unremarkable except as noted in History and below [facility] History ADHD (attention deficit hyperactivity disorder) Alcohol abuse Anxiety disorder Connective tissue disease Dermatomyositis Fibromyalgia affecting multiple sites TAHIR (generalized anxiety disorder) History of Raynaud's syndrome Migraine PTSD (post-traumatic stress disorder) Substance abuse Unspecified personality disorder Surgical History H/O vaginal hysterectomy History of left oophorectomy History of salpingectomy S/P LEEP (loop electrosurgical excision procedure) Social History Smoking Status: Current every day smoker What tobacco products do you use: cigarettes Second hand tobacco smoke exposure: No How often do you have a drink containing alcohol: 2-3 times a week AUDIT-C Alcohol total score: 3 Non-prescribed substance use: marijuana (any form) Non-prescribed substance use details: pt states she relapsed with alcohol use 12/03/22 service: No Exam Const: Vital Signs, click to edit/add: Vital Signs - 24 hr 12/04/22 11:08 12/04/22 13:30 12/04/22 14:08 Temperature 97.8 F Pulse Rate Pulse Rate [Left P ulse Oximeter] 118 H 115 H Respiratory Rate 24 20 Blood Pressure [Ri ght Upper Arm] 130/84 139/95 H Pulse Oximetry 96 96 96 Oxygen Delivery Me thod Room Air Room Air 12/04/22 15:03 Temperature Pulse Rate 111 H Pulse Rate [Left P ulse Oximeter] Respiratory Rate Blood Pressure [Ri ght Upper Arm] Pulse Oximetry 98 Oxygen Delivery Me thod Room Air She is up standing in the room when I come in, hanging onto an emesis basin leaning on the counter. She is shaky, looks anxious and looks like she does not feel well. Documenting provider has reviewed patient's vital signs: yes Common normals: no apparent distress, average body habitus, oriented x3, no limitations and alert General appearance: cooperative, anxious and ill appearing Orientation/consciousness: Yes awake HENMT: Common normals: normocephalic, head/scalp atraumatic, hearing grossly normal bilaterally, external ears normal, external nose normal and nasal mucous membranes and turbinates normal Head and scalp: normocephalic and atraumatic Nose: external nose normal and nasal mucous membranes and turbinates normal External ear: external ears normal Other: No oral pharyngeal trauma, dentition good repair. Tongue and oral mucosa is dry. Eye: Common normals: PERRL, EOMs intact bilaterally, conjunctivae normal and no scleral icterus Conjunctiva: conjunctiva(e) normal Pupil: PERRL Neck & C-Spine: Common normals: full ROM, no lymphadenopathy, supple, no meningeal signs, no JVD and thyroid normal Thyroid: thyroid normal Resp: Common normals: normal respiratory effort, no retractions, no use of accessory muscles and clear to auscultation bilaterally Auscultation: clear to auscultation bilaterally Cardio: Common normals: no JVD, regular rhythm, S1 normal heart sound, S2 normal heart sound, no gallops, no clicks and no murmurs Rate: tachycardic Rhythm: regular rhythm Heart sounds: S1 normal and S2 normal GI: Common normals: Normal to inspection, nondistended, normoactive bowel sounds present, soft to palpation, non-tender, no hepatosplenomegaly and no masses Palpation: soft and no hepatosplenomegaly Neuro: Common normals: oriented x3 Sensorium/orientation: awake and alert Meningeal signs: no meningeal signs Course Course Hospital Course: Will get appropriate lab work, see where her alcohol level is. Will establish an IV, give her 1 L of normal saline 4 mg IV Zofran and see how she responds. I do not feel that she needs any imaging at this time but will continue to watch and observe her. A.m. drying lipase and if that is significantly elevated, will obviously order CT abdomen pelvis looking for pancreatitis. With last night being her 1st episode of drinking for quite some time, it would be highly unlikely for her to be withdrawing. Reevaluation(s) Reevaluation #1: Patient's nausea is still present. She is almost through 1 L of fluids. All have back is a lactate which is normal right now. Going to give her a 2 L of lactated Ringer's over an hour, 4 mg further of IV Zofran and 0.5 mg IV Ativan for her symptoms. She is aware am still waiting on some of her labs. She does look overall stable. Time: 14:36 Reevaluation #2: Patient requesting a GI cocktail, states she feels good enough to try that now. Have subsequently ordered this. Likely to discharge home shortly. She is also requesting a prescription from [facility] for zofran. Time: 15:38 Vital Signs Vital signs: Initial Vital Signs Temperature 97.8 F 12/04/22 11:08 Temperature Source Temporal Artery Scan 12/04/22 11:08 Pulse Rate 118 H 12/04/22 11:08 Respiratory Rate 24 12/04/22 11:08 Blood Pressure 130/84 12/04/22 11:08 Blood Pressure Mean 99 12/04/22 11:08 Blood Pressure Position Standing 12/04/22 11:08 Pulse Oximetry 96 12/04/22 11:08 Oxygen Delivery Method 12/04/22 11:08 Vital Signs Temperature 97.8 F 12/04/22 11:08 Pulse Rate 118 H 12/04/22 11:08 Respiratory Rate 24 12/04/22 11:08 Blood Pressure 130/84 12/04/22 11:08 Pulse Oximetry 96 12/04/22 11:08 Oxygen Delivery Method 12/04/22 11:08 Temperature 97.8 F 12/04/22 11:08 Pulse Rate 111 H 12/04/22 15:03 Respiratory Rate 20 12/04/22 14:08 Blood Pressure 139/95 H 12/04/22 14:08 Pulse Oximetry 98 12/04/22 15:03 Oxygen Delivery Method 12/04/22 15:03 Medical Decision Making Lab Data Lab results reviewed: Yes I reviewed the patient's lab results Labs: Lab Results 12/04/22 12/04/22 12/04/22 Range/Units 13:40 13:40 13:40 WBC 13.60 H (4.50-11.00) K/uL RBC 4.72 (4.00-5.20) m/uL Hgb 14.1 (12.0-16.0) gm/dL Hct 40.9 (33.0-51.0) % MCV 87 (80-100) fL MCH 30 (26-34) pg MCHC 35 (32-36) gm/dL RDW Coeff of Tray 13.9 (11.5-15.5) % Plt Count 400 (140-440) K/uL Neut % (Auto) 78.2 H (42.0-72.0) % Lymph % (Auto) 17.4 L (20-44) % [place] % (Auto) 3.9 (0.0-11.0) % Eos % (Auto) 0.1 (0.0-7.0) % Baso % (Auto) 0.3 (0.0-3.0) % Neut # (Auto) 10.60 H (1.7-7.0) K/uL Lymph # (Auto) 2.40 (0.90-2.90) K/uL [place] # (Auto) 0.50 (0.00-0.90) K/UL Eos # (Auto) 0.00 (0.00-0.50) K/uL Baso # (Auto) 0.00 (0.00-0.30) K/uL Sodium 139 (135-149) mmol/L Potassium 3.8 (3.6-5.1) mmol/L Chloride 107 (96-114) mmol/L Carbon Dioxide 20 (20-32) mmol/L BUN 16 (5-24) mg/dL Creatinine 0.6 (0.5-1.5) mg/dL Estimated Creat Clear 110.32 Estimated GFR 121 ml/min Glucose 93 (60-115) mg/dL Lactate 1.4 (0.5-1.9) mmol/L Calcium 9.0 (8.4-10.6) mg/dL Magnesium 1.7 (1.5-2.6) mg/dL Total Bilirubin 0.7 (0.1-1.5) mg/dL AST 42 H (12-35) U/L ALT 32 (4-35) U/L Alkaline Phosphatase 145 (40-150) U/L Total Protein 8.0 (6.0-8.3) g/dL Albumin 4.8 (3.3-5.0) g/dL Lipase 55 (23-300) U/L Ethyl Alcohol < 0.01 L (0.01-0.03) % Critical Care Time Critical Care Time Critical Care Time: No Discharge Plan Discharge Clinical Impression: Nausea & vomiting Patient Disposition: Home, Self-Care Condition: Stable Instructions: Acute Nausea and Vomiting (ED), Alcohol Use Disorder (ED) Additional Instructions: Recommend clear liquids, as you feel better can advance diet as tolerated back to normal. Can use Zofran if needed for any further nausea vomiting. It is imperative that you refrain from alcohol use. Recommend talking to your primary care doctor, consider a or whenever modalities have worked for you in the past refrain from alcohol use. Activity Level: Activity as Tolerated Prescriptions: No Action venlafaxine 150 mg capsule,extended release 24hr 150 mg PO DAILY gabapentin 300 mg capsule 900 mg PO HS ondansetron 4 mg tablet,disintegrating 4 mg PO Q8H PRN Probiotic 1 cap PO DAILY amlodipine 5 mg tablet 5 mg PO DAILY cyclobenzaprine 10 mg tablet 10 mg PO HS PRN dextroamphetamine-amphetamine 5 mg tablet 5 mg PO BID Hold Instructions: Order Change Label Comments: take 1.5 tablets (7.5 mg) by mouth 2 times daily omeprazole 40 mg capsule,delayed release(DR/EC) 40 mg PO DAILY Qty: 30 0RF hydrochlorothiazide 12.5 mg tablet 12.5 mg PO DAILY quetiapine 25 mg tablet 25 mg PO DAILY Label Comments: TAKE 1/2 TABLET BY MOUTH AT BEDTIME FOR 3 DAYS. INCREASE 1 TABLET BY MOUTH AT BEDTIME levofloxacin 500 mg tablet 500 mg PO DAILY Qty: 9 0RF acetaminophen-codeine 300-30 mg tablet 1 tab PO Q8H PRN (Reason: pain) Qty: 10 0RF ondansetron 4 mg tablet,disintegrating 4 mg PO Q6H Qty: 20 0RF Follow Up/Referrals: Daysi Bowles MD [Primary Care Provider] - Stand Alone Forms: [facility] Info Instructions
[2022-12-04 13:30] VITALS: O2SAT 96
[2022-12-04 13:46] LABS: Lactate* 1.4 mmol/L (0.5-1.9)
[2022-12-04] MEDS: 0.9 % SODIUM CHLORIDE 1000 ml 1,000 ML IV (13:52)
[2022-12-04] MEDS: ONDANSETRON 2 MG/ML inj 4 MG IVP ×2 (13:52→14:42)
[2022-12-04 14:08] VITALS: BP 139/95; PULSE 115; RESP 20; O2SAT 96
[2022-12-04 14:20] LABS: Chloride* 107 mmol/L (96-114)
[2022-12-04 14:21] LABS: Albumin* 4.8 g/dL (3.3-5.0); Potassium* 3.8 mmol/L (3.6-5.1); Sodium* 139 mmol/L (135-149)
[2022-12-04 14:23] LABS: Carbon Dioxide* 20 mmol/L (20-32); Creatinine* 0.6 mg/dL (0.5-1.5); Est. Creatinine Clearance* 110.32; Estimated Glomerular Filt Rate 121 ml/min
[2022-12-04 14:24] LABS: Alanine Aminotransferase* 32 U/L (4-35); Alkaline Phosphatase* 145 U/L (40-150); Aspartate Amino Transferase* 42 U/L (12-35); Bilirubin Total* 0.7 mg/dL (0.1-1.5); Blood Urea Nitrogen* 16 mg/dL (5-24); Glucose* 93 mg/dL (60-115); Lipase* 55 U/L (23-300); Magnesium* 1.7 mg/dL (1.5-2.6)
[2022-12-04 14:38] LABS: Ethanol* < 0.01 % (0.01-0.03)
[2022-12-04] MEDS: LORazepam 2 MG/ML inj 0.5 MG IVP (14:42)
[2022-12-04] MEDS: LACTATED RINGERS 1000 ML 1,000 ML IV (15:00)
[2022-12-04 15:03] VITALS: PULSE 111; O2SAT 98
[2022-12-04 15:31] LABS: Basophils Percent Auto 0.3 % (0.0-3.0); Eosinophils Percent Auto 0.1 % (0.0-7.0); Hematocrit 40.9 % (33.0-51.0); Hemoglobin* 14.1 gm/dL (12.0-16.0); Immature Granulocytes Pct Auto 0.1 %; Lymphocytes Percent Auto 17.4 % (20-44); Mean Corpuscular HGB Conc 35 gm/dL (32-36); Mean Corpuscular Hemoglobin 30 pg (26-34); Mean Corpuscular Volume 87 fL (80-100); Monocytes Percent Auto 3.9 % (0.0-11.0); Neutrophils Percent Auto 78.2 % (42.0-72.0); Platelet Count* 400 K/uL (140-440); RDW Coefficient of Variation % 13.9 % (11.5-15.5); Red Blood Count 4.72 m/uL (4.00-5.20)
[2022-12-04 15:32] LABS: Slide Review Reflex No
[2022-12-04] MEDS: GI COCKTAIL (VISC LIDO/ANTACID) 30 ML PO (15:40)
[2022-12-04 15:45] VITALS: PULSE 108; O2SAT 98
[2022-12-04 15:46] VITALS: BP 137/98
== END 2022-12-04 15:56 | disposition home or self-care (01) ==
PROVIDERS: Emergency Provider Family Medicine; PCP Family Medicine
DX: R11.2 Nausea with vomiting, unspecified (principal)
CPT/HCPCS: 36415; 80053; 82077; 83605; 83690; 83735; 85025; 94761; 96361; 96374; 96375; 96376; 99284; A9270; J2060; J2405; J7030; J7120

== ENCOUNTER 2023-01-04 11:30 | Emergency (ER) | payer MEDICAID, SELFPAY ==
[2023-01-04 11:33] VITALS: BP 152/113; PULSE 114; RESP 18; TEMP 36.2; O2SAT 98; BMI 31.4
--- NOTE | 2023-01-04 11:47 | ED.ABDPAIN ---
HPI - Abdominal Pain General Time Seen by Provider: 11:47 Date Seen: 01/04/23 Chief Complaint: Abdominal Pain Stated Complaint: Bloating, nausea Time Seen by Provider: 01/04/23 11:46 Source: patient, RN notes reviewed and old records reviewed Mode of arrival: ambulatory Limitations: no limitations Related Data Home Medications Medication Instructions Recorded Confirmed Probiotic 1 cap PO DAILY 05/11/22 12/04/22 gabapentin 300 mg capsule 900 mg PO HS 05/11/22 12/04/22 ondansetron 4 mg disintegrating 4 mg PO Q8H PRN 05/11/22 12/04/22 tablet venlafaxine 150 mg 150 mg PO DAILY 05/11/22 12/04/22 capsule,extended release 24 hr amlodipine 5 mg tablet 5 mg PO DAILY 07/16/22 12/04/22 cyclobenzaprine 10 mg tablet 10 mg PO HS PRN 07/16/22 12/04/22 dextroamphetamine-amphetamine 5 mg 5 mg PO BID 07/16/22 12/04/22 tablet hydrochlorothiazide 12.5 mg tablet 12.5 mg PO DAILY 11/17/22 12/04/22 quetiapine 25 mg tablet 25 mg PO DAILY 11/17/22 12/04/22 Previous Rx's Medication Instructions Recorded ondansetron 4 mg disintegrating 4 mg PO Q6H #20 tabs 08/03/22 tablet omeprazole 40 mg capsule,delayed 40 mg PO DAILY #30 caps 09/28/22 release acetaminophen 300 mg-codeine 30 mg 1 tab PO Q8H PRN pain #10 tabs 11/17/22 tablet levofloxacin 500 mg tablet 500 mg PO DAILY #9 tabs 11/17/22 Allergies Allergy/AdvReac Type Severity Reaction Status Date / Time latex Allergy Mild Rash Verified 01/04/23 11:33 oxycodone Allergy Mild Anxiety Verified 12/04/22 11:14 bupropion [From Wellbutrin] AdvReac Intermediate Mood Verified 01/04/23 11:33 Changes PFSH PFSH Medical History ADHD (attention deficit hyperactivity disorder) Alcohol abuse Anxiety disorder Connective tissue disease Dermatomyositis Fibromyalgia affecting multiple sites TAHIR (generalized anxiety disorder) History of Raynaud's syndrome Migraine PTSD (post-traumatic stress disorder) Substance abuse Unspecified personality disorder Surgical History H/O vaginal hysterectomy History of left oophorectomy History of salpingectomy S/P LEEP (loop electrosurgical excision procedure) Social History Smoking Status: Current every day smoker What tobacco products do you use: cigarettes Do you use any of these nicotine containing products: None and E-Cigarettes Second hand tobacco smoke exposure: No How often do you have a drink containing alcohol: 4 or more times a week How many standard drinks containing alcohol do you have on a typical day: 5 or 6 How often do you have six or more drinks on one occasion: Daily or almost daily AUDIT-C Alcohol total score: 10 Non-prescribed substance use: marijuana (any form) Non-prescribed substance use details: pt states she relapsed with alcohol use 12/03/22 service: No Exam Narrative: Exam Narrative: Kalli is alert and oriented. She is not in any acute distress although initially she is frustrated. EOM is full and pupils are equal round reactive. Head is atraumatic. Neck is supple. Heart with a regular tachycardic rate but normal rhythm. Lungs are clear. Abdomen is soft rather diffuse tenderness but no significant rebound. Lower extremities without edema. Const: Vital Signs, click to edit/add: Vital Signs - 24 hr 01/04/23 11:33 01/04/23 13:32 Temperature 97.2 F L Pulse Rate [Pulse Oximeter] 114 H 92 Respiratory Rate 18 Blood Pressure [Ri ght Upper Arm] 152/113 H 143/103 H Pulse Oximetry 98 100 Oxygen Delivery Me thod Room Air Room Air Documenting provider has reviewed patient's vital signs: yes Course Course Hospital Course: Kalli is a 32-year-old female with a longstanding history of alcohol abuse who quit drinking approximately 36 hours ago. She notes that this is typical where she will experience constipation and which will evolve into diarrhea. She notes that she is bloated today feeling uncomfortable. She has no wish to go to detox nor to treatment. She states that she will do a. She is receptive to AA and has a friend who has been sober for 8 months at this time. Patient denies a history of significant withdrawal seizures or otherwise. Kalli is in agreement to check her labs and give fluids as well as Toradol and Zofran. She is also in agreement to an x-ray of her abdomen. Reevaluation(s) Reevaluation #1: Patient noted to be feeling better after 2 L IV fluids. She still has some mild nausea and thus I will give her is 0.5 mg Ativan. Reevaluation #2: Patient notes to be feeling much better and is hungry. We will feed her and then she may depart home. Vital Signs Vital signs: Initial Vital Signs Temperature 97.2 F L 01/04/23 11:33 Temperature Source Temporal Artery Scan 01/04/23 11:33 Pulse Rate 114 H 01/04/23 11:33 Pulse Rhythm 01/04/23 11:33 Respiratory Rate 18 01/04/23 11:33 Blood Pressure 152/113 H 01/04/23 11:33 Blood Pressure Mean 126 01/04/23 11:33 Blood Pressure Position Sitting 01/04/23 11:33 Pulse Oximetry 98 01/04/23 11:33 Oxygen Delivery Method 01/04/23 11:33 Vital Signs Temperature 97.2 F L 01/04/23 11:33 Pulse Rate 114 H 01/04/23 11:33 Respiratory Rate 18 01/04/23 11:33 Blood Pressure 152/113 H 01/04/23 11:33 Pulse Oximetry 98 01/04/23 11:33 Oxygen Delivery Method 01/04/23 11:33 Temperature 97.2 F L 01/04/23 11:33 Pulse Rate 92 01/04/23 13:32 Respiratory Rate 18 01/04/23 11:33 Blood Pressure 143/103 H 01/04/23 13:32 Pulse Oximetry 100 01/04/23 13:32 Oxygen Delivery Method 01/04/23 13:32 MDM - Abdominal Pain MDM Narrative Medical decision making narrative: 1. Abdominal pain-patient has no evidence of an acute abdomen and on x-ray has a large amount of stool noted. She did give herself an enema this morning but declines further enema or suppository here in the ED. She states that if she wants another 1 she will do a to herself at home. Laboratory values reassuring as well and I do not think that there is any a underlying evidence of acute appendicitis, cholecystitis or pancreatitis. She may have some mild gastritis from her alcohol use and states that that is why she stopped drinking. Hemoglobin stable at this time. Recommend use of Pepcid and she states that she does have this at home. Zofran 4 mg ODT q.8 hours p.r.n. 10. Via instant meds. 2. Alcohol withdrawal-mild at this point. Patient states that usually her withdrawal last 6 days but she has never had a seizure or any other complications. I did state that I cannot manage withdrawal out of the ED but I can give her a small amount of Ativan to have at home. I did state to her that Ativan would combine with alcohol can have leave full affects. I would like her to follow up with her regular MD for further evaluation. Ativan 0.5 mg 1-2 p.o. Q 6-8 hours p.r.n. 10. Via [facility]. 3. Disposition-home at this time. Return for worsening symptoms. Abstain from alcohol use. Medical Records Attestation: I reviewed the patient's medical records. Lab Data Attestation: I reviewed the patient's lab results. Labs: Lab Results 01/04/23 01/04/23 01/04/23 Range/Units 12:25 12:25 13:34 WBC 10.36 (4.50-11.00) K/uL RBC 4.77 (4.00-5.20) m/uL Hgb 14.1 (12.0-16.0) gm/dL Hct 41.6 (33.0-51.0) % MCV 87 (80-100) fL MCH 30 (26-34) pg MCHC 34 (32-36) gm/dL RDW Coeff of Tray 13.7 (11.5-15.5) % Plt Count 363 (140-440) K/uL Neut % (Auto) 78.5 H (42.0-72.0) % Lymph % (Auto) 16.2 L (20-44) % [place] % (Auto) 4.5 (0.0-11.0) % Eos % (Auto) 0.3 (0.0-7.0) % Baso % (Auto) 0.3 (0.0-3.0) % Neut # (Auto) 8.10 H (1.7-7.0) K/uL Lymph # (Auto) 1.70 (0.90-2.90) K/uL [place] # (Auto) 0.50 (0.00-0.90) K/UL Eos # (Auto) 0.03 (0.00-0.50) K/uL Baso # (Auto) 0.03 (0.00-0.30) K/uL Sodium 133 L (135-149) mmol/L Potassium 3.9 (3.6-5.1) mmol/L Chloride 103 (96-114) mmol/L Carbon Dioxide 23 (20-32) mmol/L BUN 10 (5-24) mg/dL Creatinine 0.5 (0.5-1.5) mg/dL Estimated Creat Clear 132.38 Estimated GFR 127 ml/min Glucose 101 (60-115) mg/dL Calcium 8.7 (8.4-10.6) mg/dL Total Bilirubin 0.5 (0.1-1.5) mg/dL AST 38 H (12-35) U/L ALT 30 (4-35) U/L Alkaline Phosphatase 138 (40-150) U/L C-Reactive Protein < 0.5 L (0.5-1.0) mg/dL Total Protein 7.3 (6.0-8.3) g/dL Albumin 4.4 (3.3-5.0) g/dL Lipase 49 (23-300) U/L Urine Color Yellow (Yellow) Urine Appearance Clear (Clear) Urine pH 8.5 (5.0-8.5) Ur Specific [place] 1.010 (1.000-1.030) Urine Protein 1+ A (Negative) Urine Glucose (UA) Negative (Negative) Urine Ketones Negative (Negative) Urine Blood Negative (Negative) Urine Nitrite Negative (Negative) Urine Bilirubin Negative (Negative) Urine Urobilinogen 0.2 (0.2-1.0) Ur Leukocyte Esterase Negative (Negative) Urine RBC 0-2 (0-2) Urine WBC 0-2 (0-5) Ur Squamous Epith Cells Few (None-Few) Urine Bacteria Few A (None) Urine Opiates Screen (Negative) Ur Oxycodone Screen (Negative) Urine Methadone Screen (Negative) Ur Propoxyphene Screen (Negative) Ur Barbiturates Screen (Negative) U Tricyclic Antidepress (Negative) Ur Phencyclidine Scrn (Negative) Ur Amphetamines Screen (Negative) U Methamphetamines Scrn (Negative) U Benzodiazepines Scrn (Negative) Urine Cocaine Screen (Negative) U Marijuana (THC) Screen (Negative) Ur Drug Screen Comment Ethyl Alcohol < 0.01 L (0.01-0.03) % 01/04/23 Range/Units 13:34 WBC (4.50-11.00) K/uL RBC (4.00-5.20) m/uL Hgb (12.0-16.0) gm/dL Hct (33.0-51.0) % MCV (80-100) fL MCH (26-34) pg MCHC (32-36) gm/dL RDW Coeff of Tray (11.5-15.5) % Plt Count (140-440) K/uL Neut % (Auto) (42.0-72.0) % Lymph % (Auto) (20-44) % [place] % (Auto) (0.0-11.0) % Eos % (Auto) (0.0-7.0) % Baso % (Auto) (0.0-3.0) % Neut # (Auto) (1.7-7.0) K/uL Lymph # (Auto) (0.90-2.90) K/uL [place] # (Auto) (0.00-0.90) K/UL Eos # (Auto) (0.00-0.50) K/uL Baso # (Auto) (0.00-0.30) K/uL Sodium (135-149) mmol/L Potassium (3.6-5.1) mmol/L Chloride (96-114) mmol/L Carbon Dioxide (20-32) mmol/L BUN (5-24) mg/dL Creatinine (0.5-1.5) mg/dL Estimated Creat Clear Estimated GFR ml/min Glucose (60-115) mg/dL Calcium (8.4-10.6) mg/dL Total Bilirubin (0.1-1.5) mg/dL AST (12-35) U/L ALT (4-35) U/L Alkaline Phosphatase (40-150) U/L C-Reactive Protein (0.5-1.0) mg/dL Total Protein (6.0-8.3) g/dL Albumin (3.3-5.0) g/dL Lipase (23-300) U/L Urine Color (Yellow) Urine Appearance (Clear) Urine pH (5.0-8.5) Ur Specific [place] (1.000-1.030) Urine Protein (Negative) Urine Glucose (UA) (Negative) Urine Ketones (Negative) Urine Blood (Negative) Urine Nitrite (Negative) Urine Bilirubin (Negative) Urine Urobilinogen (0.2-1.0) Ur Leukocyte Esterase (Negative) Urine RBC (0-2) Urine WBC (0-5) Ur Squamous Epith Cells (None-Few) Urine Bacteria (None) Urine Opiates Screen Negative (Negative) Ur Oxycodone Screen Negative (Negative) Urine Methadone Screen Negative (Negative) Ur Propoxyphene Screen Negative (Negative) Ur Barbiturates Screen Negative (Negative) U Tricyclic Antidepress POSITIVE A* (Negative) Ur Phencyclidine Scrn Negative (Negative) Ur Amphetamines Screen Negative (Negative) U Methamphetamines Scrn Negative (Negative) U Benzodiazepines Scrn Negative (Negative) Urine Cocaine Screen Negative (Negative) U Marijuana (THC) Screen Negative (Negative) Ur Drug Screen Comment See Note Ethyl Alcohol (0.01-0.03) % Imaging Data Abdominal x-ray: Attestation: I have reviewed the pertinent imaging results. Radiologist's impression: Bowel: Moderate amount of stool is present throughout the colon which may be due to chronic constipation. The bowel gas pattern is normal without evidence of bowel obstruction. Soft tissue: No evidence of pneumoperitoneum present. No suspicious calcifications noted. Bone: Unremarkable for age. IMPRESSION: 1. Unremarkable appearance of the visualized abdomen. Discharge Plan Discharge Clinical Impression: Alcohol withdrawal, Abdominal pain Patient Disposition: Home, Self-Care Condition: Improved Instructions: Abdominal Pain (ED) Additional Instructions: Try to push fluids as much as possible. Zofran may be used for nausea. If necessary, use Ativan as needed. Please do not use alcohol if using Ativan. Combination can be lethal. Follow-up with your primary MD for ongoing support for withdrawal. Return to the emergency room for worsening symptoms. Prescriptions: No Action venlafaxine 150 mg capsule,extended release 24hr 150 mg PO DAILY gabapentin 300 mg capsule 900 mg PO HS ondansetron 4 mg tablet,disintegrating 4 mg PO Q8H PRN Probiotic 1 cap PO DAILY amlodipine 5 mg tablet 5 mg PO DAILY cyclobenzaprine 10 mg tablet 10 mg PO HS PRN dextroamphetamine-amphetamine 5 mg tablet 5 mg PO BID Hold Instructions: Order Change Label Comments: take 1.5 tablets (7.5 mg) by mouth 2 times daily omeprazole 40 mg capsule,delayed release(DR/EC) 40 mg PO DAILY Qty: 30 0RF hydrochlorothiazide 12.5 mg tablet 12.5 mg PO DAILY quetiapine 25 mg tablet 25 mg PO DAILY Label Comments: TAKE 1/2 TABLET BY MOUTH AT BEDTIME FOR 3 DAYS. INCREASE 1 TABLET BY MOUTH AT BEDTIME levofloxacin 500 mg tablet 500 mg PO DAILY Qty: 9 0RF acetaminophen-codeine 300-30 mg tablet 1 tab PO Q8H PRN (Reason: pain) Qty: 10 0RF ondansetron 4 mg tablet,disintegrating 4 mg PO Q6H Qty: 20 0RF Follow Up/Referrals: Daysi Bowles MD [Primary Care Provider] - Stand Alone Forms: [facility] Info Instructions
--- NOTE | 2023-01-04 12:05 | CRLHL7_ITS ---
For Patients: As a result of the Century Cures Act, medical imaging exams and procedure reports are released immediately into your electronic medical record. You may view this report before your referring provider. If you have questions, please contact your health care provider. INDICATION: Abdominal pain TECHNIQUE: Abdomen/Pelvis radiograph 4 views COMPARISON: None FINDINGS: The sensitivity and specificity of the exam are moderately limited by the patient`s body habitus. Bowel: Moderate amount of stool is present throughout the colon which may be due to chronic constipation. The bowel gas pattern is normal without evidence of bowel obstruction. Soft tissue: No evidence of pneumoperitoneum present. No suspicious calcifications noted. Bone: Unremarkable for age. IMPRESSION: 1. Unremarkable appearance of the visualized abdomen. Dictated by Nahid Macario MD @ 01/04/2023 12:30:13 PM Dictated by: Nahid Macario MD @ 01/04/2023 12:30:17 (Electronically Signed)
[2023-01-04] MEDS: KETOROLAC 15 MG/ML inj IVP (12:25)
[2023-01-04] MEDS: ONDANSETRON 2 MG/ML inj 4 MG IVP (12:25)
[2023-01-04] MEDS: 0.9 % SODIUM CHLORIDE 1000 ml 1,000 ML IV ×2 (12:26→13:31)
[2023-01-04 12:33] LABS: Basophils Absolute Auto 0.03 K/uL (0.00-0.30); Basophils Percent Auto 0.3 % (0.0-3.0); Eosinophils Absolute Auto 0.03 K/uL (0.00-0.50); Eosinophils Percent Auto 0.3 % (0.0-7.0); Hematocrit 41.6 % (33.0-51.0); Hemoglobin* 14.1 gm/dL (12.0-16.0); Immature Granulocytes Abs Auto 0.02 K/uL (0.00-0.30); Immature Granulocytes Pct Auto 0.2 %; Lymphocytes Percent Auto 16.2 % (20-44); Mean Corpuscular HGB Conc 34 gm/dL (32-36); Mean Corpuscular Hemoglobin 30 pg (26-34); Mean Corpuscular Volume 87 fL (80-100); Monocytes Percent Auto 4.5 % (0.0-11.0); Neutrophils Percent Auto 78.5 % (42.0-72.0); Platelet Count* 363 K/uL (140-440); RDW Coefficient of Variation % 13.7 % (11.5-15.5); Red Blood Count 4.77 m/uL (4.00-5.20); White Blood Count* 10.36 K/uL (4.50-11.00)
[2023-01-04 12:38] LABS: Slide Review Reflex No
[2023-01-04 12:50] LABS: Albumin* 4.4 g/dL (3.3-5.0); Chloride* 103 mmol/L (96-114); Sodium* 133 mmol/L (135-149)
[2023-01-04 12:51] LABS: Potassium* 3.9 mmol/L (3.6-5.1)
[2023-01-04 12:52] LABS: Creatinine* 0.5 mg/dL (0.5-1.5); Est. Creatinine Clearance* 132.38; Estimated Glomerular Filt Rate 127 ml/min
[2023-01-04 12:53] LABS: Alanine Aminotransferase* 30 U/L (4-35); Alkaline Phosphatase* 138 U/L (40-150); Aspartate Amino Transferase* 38 U/L (12-35); Bilirubin Total* 0.5 mg/dL (0.1-1.5); Blood Urea Nitrogen* 10 mg/dL (5-24); Carbon Dioxide* 23 mmol/L (20-32); Glucose* 101 mg/dL (60-115); Lipase* 49 U/L (23-300); Total Protein* 7.3 g/dL (6.0-8.3)
[2023-01-04 12:54] LABS: Calcium* 8.7 mg/dL (8.4-10.6)
[2023-01-04] MEDS: LORazepam 2 MG/ML inj 0.5 MG IVP (13:30)
[2023-01-04 13:32] VITALS: BP 143/103; PULSE 92; O2SAT 100
[2023-01-04 13:35] LABS: C Reactive Protein* < 0.5 mg/dL (0.5-1.0); Ethanol* < 0.01 % (0.01-0.03)
[2023-01-04 13:54] LABS: Appearance Urine Clear (Clear); Bilirubin Urine Negative (Negative); Blood Urine Negative (Negative); Color Urine Yellow (Yellow); Glucose Urine Negative (Negative); Ketones Urine Negative (Negative); Leukocyte Esterase Urine Negative (Negative); Nitrite Urine Negative (Negative); Protein Urine 1+ (Negative); Urobilinogen Urine 0.2 (0.2-1.0); pH Urine 8.5 (5.0-8.5)
[2023-01-04 14:00] LABS: Amphetamine Screen Urine Negative (Negative); Barbiturate Screen Urine Negative (Negative); Benzodiazepines Screen Urine Negative (Negative); Cannabinoid Screen Urine Negative (Negative); Cocaine Screen Urine Negative (Negative); Methadone Screen Urine Negative (Negative); Methamphetamines Screen Urine Negative (Negative); Opiate Screen Urine Negative (Negative); Oxycodone Screen Urine Negative (Negative); Phencyclidine Screen Urine Negative (Negative)
[2023-01-04 14:14] LABS: Tricyclic Antidepressant Urine POSITIVE (Negative)
[2023-01-04 14:28] LABS: Bacteria Urine Few; RBC Urine 0-2 (0-2); Squamous Epithelial Cell Urine Few (None-Few); WBC Urine 0-2 (0-5)
== END 2023-01-04 14:33 | disposition home or self-care (01) ==
PROVIDERS: Emergency Provider Family Medicine; PCP Family Medicine
DX: R10.9 Unspecified abdominal pain (principal); F10.239 Alcohol dependence with withdrawal, unspecified
CPT/HCPCS: 36415; 74019; 80053; 80306; 81001; 82077; 83690; 85025; 86140; 87086; 96374; 96375; 99284; J1885; J2060; J2405; J7030

== ENCOUNTER 2023-03-02 13:57 | Emergency (ER) | payer MEDICAID, SELFPAY ==
[2023-03-02 14:11] VITALS: BP 135/103; PULSE 125; RESP 26; TEMP 36.4; O2SAT 96
--- NOTE | 2023-03-02 23:06 | ED.ALCOHOL ---
HPI - Alcohol General Chief Complaint: Alcohol/Intoxication Stated Complaint: ETOH Time Seen by Provider: 03/02/23 14:04 History of Present Illness HPI narrative: 32-year-old woman returning to the emergency department expressing desire for treatment for alcohol abuse. She has never been in treatment before and it is not clear to me that she has actually been in detox either. Drinking has escalated over the last 5 years or so. She has been hiding it in particular last week. History of drinking as much as 750 mL of liquor a day but much less recently. It is hard for me to understand exactly how much she is drinking. She has self weaned/tapers the past without marked withdrawal symptoms beyond shakes and some muscle spasms it sounds like. She denies suicidality but has trouble identifying her own value. She is accompanied here by long-term significant other Rocky who is appropriately supportive. Further questioning it appears as though some arrangements have been made for day treatment in [facility] which it appears she is a little reluctant to do because of location. Is not regularly attending AA but does have a sober amusement equipment operator. Rocky himself does not drink alcohol. Kalli does experience episodes of panic and agitation. Underlying diagnosis of anxiety. Does have hydroxyzine available which admittedly can help. There is an apparent abuse history. Related Data Home Medications Medication Instructions Recorded Confirmed Probiotic 1 cap PO DAILY 05/11/22 12/04/22 gabapentin 300 mg capsule 300 mg PO HS 05/11/22 03/02/23 ondansetron 4 mg disintegrating 4 mg PO Q8H PRN 05/11/22 12/04/22 tablet venlafaxine 150 mg 75 mg PO DAILY 05/11/22 03/02/23 capsule,extended release 24 hr amlodipine 5 mg tablet 5 mg PO DAILY 07/16/22 12/04/22 cyclobenzaprine 10 mg tablet 10 mg PO HS PRN 07/16/22 03/02/23 dextroamphetamine-amphetamine 5 mg 5 mg PO BID 07/16/22 12/04/22 tablet hydrochlorothiazide 12.5 mg tablet 12.5 mg PO DAILY 11/17/22 03/02/23 quetiapine 25 mg tablet 25 mg PO DAILY 11/17/22 03/02/23 Previous Rx's Medication Instructions Recorded ondansetron 4 mg disintegrating 4 mg PO Q6H #20 tabs 08/03/22 tablet omeprazole 40 mg capsule,delayed 40 mg PO DAILY #30 caps 09/28/22 release acetaminophen 300 mg-codeine 30 mg 1 tab PO Q8H PRN pain #10 tabs 11/17/22 tablet levofloxacin 500 mg tablet 500 mg PO DAILY #9 tabs 11/17/22 Allergies Allergy/AdvReac Type Severity Reaction Status Date / Time latex Allergy Mild Rash Verified 01/04/23 11:33 oxycodone Allergy Mild Anxiety Verified 12/04/22 11:14 bupropion [From Wellbutrin] AdvReac Intermediate Mood Verified 01/04/23 11:33 Changes Review of Systems Status of ROS Reports: 6 or more systems reviewed and unremarkable except as noted in History and below [facility] Medical History Substance abuse ?F19.10 - Other psychoactive substance abuse, uncomplicated (ICD-10) Migraine ?G43.909 - Migraine, unspecified, not intractable, without status migrainosus (ICD-10) Alcohol abuse ?F10.10 - Alcohol abuse, uncomplicated (ICD-10) Dermatomyositis ?M33.90 - Dermatopolymyositis, unspecified, organ involvement unspecified (ICD-10) History of Raynaud's syndrome ?Z86.79 - Personal history of other diseases of the circulatory system (ICD-10) Fibromyalgia affecting multiple sites ?M79.7 - Fibromyalgia (ICD-10) Connective tissue disease ?M35.9 - Systemic involvement of connective tissue, unspecified (ICD-10) ADHD (attention deficit hyperactivity disorder) ?F90.9 - Attention-deficit hyperactivity disorder, unspecified type (ICD-10) Unspecified personality disorder ?F60.9 - Personality disorder, unspecified (ICD-10) TAHIR (generalized anxiety disorder) ?F41.1 - Generalized anxiety disorder (ICD-10) PTSD (post-traumatic stress disorder) ?F43.10 - Post-traumatic stress disorder, unspecified (ICD-10) Anxiety disorder ?F41.9 - Anxiety disorder, unspecified (ICD-10) Surgical History H/O vaginal hysterectomy ?Z90.710 - Acquired absence of both cervix and uterus (ICD-10) History of salpingectomy ?Z90.79 - Acquired absence of other genital organ(s) (ICD-10) History of left oophorectomy ?Z90.721 - Acquired absence of ovaries, unilateral (ICD-10) S/P LEEP (loop electrosurgical excision procedure) ?Z98.890 - Other specified postprocedural states (ICD-10) Social History Smoking Status: Current every day smoker What tobacco products do you use: cigarettes Do you use any of these nicotine containing products: None and E-Cigarettes Second hand tobacco smoke exposure: No How often do you have a drink containing alcohol: 4 or more times a week How many standard drinks containing alcohol do you have on a typical day: 5 or 6 How often do you have six or more drinks on one occasion: Daily or almost daily AUDIT-C Alcohol total score: 10 Non-prescribed substance use: marijuana (any form) Non-prescribed substance use details: pt states she relapsed with alcohol use 12/03/22 service: No Exam Narrative: Exam Narrative: Generally pleasant. Reaches out for Rocky's hand for support. She had been hyperventilating. When gets worked up does seem to have some trouble breathing. Otherwise calmly breathing. We will extremities without difficulty. Cranial nerves 2-12 intact. Face looks generally flushed. She is dressed in sleep wear. Head looks to be atraumatic. Heart with regular rhythm but tachycardic. Skin with numerous tattoos. Oropharynx a little sticky. There is a bruise on the inside of the right arm. I initially see her stressed arrival to the emergency department initially quickly seen in the greer in busy department and then followed up in room. Const: Vital Signs, click to edit/add: Vital Signs - 24 hr 03/02/23 14:11 Temperature 97.5 F L Pulse Rate [Pulse Oximeter] 125 H Respiratory Rate 26 H Blood Pressure [Ri ght Upper Arm] 135/103 H Pulse Oximetry 96 Oxygen Delivery Me thod Room Air Documenting provider has reviewed patient's vital signs: yes Course Vital Signs Vital signs: Initial Vital Signs Temperature 97.5 F L 03/02/23 14:11 Temperature Source Temporal Artery Scan 03/02/23 14:11 Pulse Rate 125 H 03/02/23 14:11 Respiratory Rate 26 H 03/02/23 14:11 Blood Pressure 135/103 H 03/02/23 14:11 Blood Pressure Mean 113 H 03/02/23 14:11 Blood Pressure Position Sitting 03/02/23 14:11 Pulse Oximetry 96 03/02/23 14:11 Oxygen Delivery Method Room Air 03/02/23 14:11 Vital Signs Temperature 97.5 F L 03/02/23 14:11 Pulse Rate 125 H 03/02/23 14:11 Respiratory Rate 26 H 03/02/23 14:11 Blood Pressure 135/103 H 03/02/23 14:11 Pulse Oximetry 96 03/02/23 14:11 Oxygen Delivery Method Room Air 03/02/23 14:11 Temperature 97.5 F L 03/02/23 14:11 Pulse Rate 125 H 03/02/23 14:11 Respiratory Rate 26 H 03/02/23 14:11 Blood Pressure 135/103 H 03/02/23 14:11 Pulse Oximetry 96 03/02/23 14:11 Oxygen Delivery Method Room Air 03/02/23 14:11 MDM - Alcohol MDM Narrative Medical decision making narrative: Rocky is asking good questions about how he should be in these periods of aggravation that Kalli experiences. He does need to attend [facility]. Initially unclear what assistance is being sought out here in the department. It does appear that Ms. Jaimes has not had dangerous detox before further is taking less alcohol than historically. Treatment is already arranged, sounds like day treatment, beginning next week. I think can try to taper at home. I did offer detox but she would like to continue sobering at home. See patient discharge plan. Discharge Plan Discharge Clinical Impression: Alcohol abuse, Anxiety Patient Disposition: Home w/ Parent or Adult Condition: Stable Additional Instructions: Stay well-hydrated with things other than alcohol. You are not going to drink tonight. Get whatever yummy bubbly otherwise that you enjoy. I think you should attend a meeting yet today. And keep going. You need community also. Rocky, you need to go to [facility]. Try to get quality and regular sleep. Be sure to get up to see the morning sun. Try to get in little heart pumping exercise daily as this will help the mind. Please make an appointment to be seen by your primary care provider as soon as possible to coordinate cares. You have hydroxyzine, it is okay to use it. Lorazepam and Zofran from [facility] to help you over the next few days. Be sure to make that outpatient treatment that you guys have coordinated. You are griffin to get in I think. Until you get this under control, nothing else is really going to work out. Prescriptions: No Action venlafaxine 150 mg capsule,extended release 24hr 75 mg PO DAILY gabapentin 300 mg capsule 300 mg PO HS ondansetron 4 mg tablet,disintegrating 4 mg PO Q8H PRN Probiotic 1 cap PO DAILY amlodipine 5 mg tablet 5 mg PO DAILY cyclobenzaprine 10 mg tablet 10 mg PO HS PRN dextroamphetamine-amphetamine 5 mg tablet 5 mg PO BID Hold Instructions: Order Change Patient Comments: take 1.5 tablets (7.5 mg) by mouth 2 times daily omeprazole 40 mg capsule,delayed release(DR/EC) 40 mg PO DAILY Qty: 30 0RF hydrochlorothiazide 12.5 mg tablet 12.5 mg PO DAILY quetiapine 25 mg tablet 25 mg PO DAILY Patient Comments: TAKE 1/2 TABLET BY MOUTH AT BEDTIME FOR 3 DAYS. INCREASE 1 TABLET BY MOUTH AT BEDTIME levofloxacin 500 mg tablet 500 mg PO DAILY Qty: 9 0RF acetaminophen-codeine 300-30 mg tablet 1 tab PO Q8H PRN (Reason: pain) Qty: 10 0RF ondansetron 4 mg tablet,disintegrating 4 mg PO Q6H Qty: 20 0RF Follow Up/Referrals: Daysi Bowles MD [Staff Physician] - Stand Alone Forms: [employer] Info Instructions
== END 2023-03-02 15:45 | disposition home or self-care (01) ==
LOC: ED 15:14
PROVIDERS: Emergency Provider Family Medicine; PCP Student in an Organized Health Care Education/Training Program
DX: F10.120 Alcohol abuse with intoxication, uncomplicated (principal); F41.9 Anxiety disorder, unspecified
CPT/HCPCS: 99283; 99284

== ENCOUNTER 2023-04-09 20:54 | Emergency (ER) | payer MEDICAID, SELFPAY ==
[2023-04-09 21:39] VITALS: BP 143/88; PULSE 84; RESP 18; TEMP 37.2; O2SAT 99; BMI 28.2
--- NOTE | 2023-04-09 21:44 | ED.GENADULT ---
HPI - General Adult General Chief complaint: Sore Throat Stated complaint: Sore Throat Time Seen by Provider: 04/09/23 21:43 History of Present Illness HPI narrative: CC: Sore Throat, Right Ear Pain sore throat since yesterday . chills. daughter diagnosed with strep yesterday . 33-year-old woman presenting to the emergency department with concern of sore throat. Has felt chilled. No measured fever. Daughter with strep throat yesterday. No rash. Has some right-sided your pain more with swallowing. She is pleased to announce continued sobriety. Spent some time in conversation about recent events. Sucking on a lozenge. Related Data Home Medications Medication Instructions Recorded Confirmed Probiotic 1 cap PO DAILY 05/11/22 12/04/22 gabapentin 300 mg capsule 300 mg PO HS 05/11/22 03/02/23 ondansetron 4 mg disintegrating 4 mg PO Q8H PRN 05/11/22 12/04/22 tablet venlafaxine 150 mg 75 mg PO DAILY 05/11/22 03/02/23 capsule,extended release 24 hr amlodipine 5 mg tablet 5 mg PO DAILY 07/16/22 12/04/22 cyclobenzaprine 10 mg tablet 10 mg PO HS PRN 07/16/22 03/02/23 dextroamphetamine-amphetamine 5 mg 5 mg PO BID 07/16/22 12/04/22 tablet hydrochlorothiazide 12.5 mg tablet 12.5 mg PO DAILY 11/17/22 03/02/23 quetiapine 25 mg tablet 25 mg PO DAILY 11/17/22 03/02/23 Previous Rx's Medication Instructions Recorded ondansetron 4 mg disintegrating 4 mg PO Q6H #20 tabs 08/03/22 tablet omeprazole 40 mg capsule,delayed 40 mg PO DAILY #30 caps 09/28/22 release acetaminophen 300 mg-codeine 30 mg 1 tab PO Q8H PRN pain #10 tabs 11/17/22 tablet levofloxacin 500 mg tablet 500 mg PO DAILY #9 tabs 11/17/22 Allergies Allergy/AdvReac Type Severity Reaction Status Date / Time latex Allergy Mild Rash Verified 04/09/23 21:41 oxycodone Allergy Mild Anxiety Verified 04/09/23 21:41 bupropion [From Wellbutrin] AdvReac Intermediate Mood Verified 04/09/23 21:41 Changes Review of Systems Status of ROS: Reports: 6 or more systems reviewed and unremarkable except as noted in History and below [facility] Medical History Substance abuse ?F19.10 - Other psychoactive substance abuse, uncomplicated (ICD-10) Migraine ?G43.909 - Migraine, unspecified, not intractable, without status migrainosus (ICD-10) Alcohol abuse ?F10.10 - Alcohol abuse, uncomplicated (ICD-10) Dermatomyositis ?M33.90 - Dermatopolymyositis, unspecified, organ involvement unspecified (ICD-10) History of Raynaud's syndrome ?Z86.79 - Personal history of other diseases of the circulatory system (ICD-10) Fibromyalgia affecting multiple sites ?M79.7 - Fibromyalgia (ICD-10) Connective tissue disease ?M35.9 - Systemic involvement of connective tissue, unspecified (ICD-10) ADHD (attention deficit hyperactivity disorder) ?F90.9 - Attention-deficit hyperactivity disorder, unspecified type (ICD-10) Unspecified personality disorder ?F60.9 - Personality disorder, unspecified (ICD-10) TAHIR (generalized anxiety disorder) ?F41.1 - Generalized anxiety disorder (ICD-10) PTSD (post-traumatic stress disorder) ?F43.10 - Post-traumatic stress disorder, unspecified (ICD-10) Anxiety disorder ?F41.9 - Anxiety disorder, unspecified (ICD-10) Surgical History H/O vaginal hysterectomy ?Z90.710 - Acquired absence of both cervix and uterus (ICD-10) History of salpingectomy ?Z90.79 - Acquired absence of other genital organ(s) (ICD-10) History of left oophorectomy ?Z90.721 - Acquired absence of ovaries, unilateral (ICD-10) S/P LEEP (loop electrosurgical excision procedure) ?Z98.890 - Other specified postprocedural states (ICD-10) Social History Smoking Status: Current every day smoker What tobacco products do you use: cigarettes Do you use any of these nicotine containing products: None and E-Cigarettes Second hand tobacco smoke exposure: No How often do you have a drink containing alcohol: never AUDIT-C Alcohol total score: 0 Non-prescribed substance use: marijuana (any form) Non-prescribed substance use details: pt states she relapsed with alcohol use 12/03/22 service: No Exam Narrative: Exam Narrative: Quite pleasant. NAD. Has good energy. Looks quite good relative to prior visits. Line tattoos notable on left hand. Breathing easily. Neck is supple with mild anterior cervical lymphadenopathy. Oropharynx without edema an maybe a little erythematous. TMs bilaterally are clear. Skin otherwise is warm and dry. No thyromegaly. Const: Vital Signs, click to edit/add: Vital Signs - 24 hr 04/09/23 21:39 Temperature 98.9 F Pulse Rate [Right Pulse Oximeter] 84 Respiratory Rate 18 Blood Pressure [Ri ght Upper Arm] 143/88 H Pulse Oximetry 99 Oxygen Delivery Me thod Room Air Documenting provider has reviewed patient's vital signs: yes Course Vital Signs Vital signs: Initial Vital Signs Temperature 98.9 F 04/09/23 21:39 Temperature Source Temporal Artery Scan 04/09/23 21:39 Pulse Rate 84 04/09/23 21:39 Respiratory Rate 18 04/09/23 21:39 Blood Pressure 143/88 H 04/09/23 21:39 Blood Pressure Mean 106 H 04/09/23 21:39 Blood Pressure Position Sitting 04/09/23 21:39 Pulse Oximetry 99 04/09/23 21:39 Oxygen Delivery Method Room Air 04/09/23 21:39 Vital Signs Temperature 98.9 F 04/09/23 21:39 Pulse Rate 84 04/09/23 21:39 Respiratory Rate 18 04/09/23 21:39 Blood Pressure 143/88 H 04/09/23 21:39 Pulse Oximetry 99 04/09/23 21:39 Oxygen Delivery Method Room Air 04/09/23 21:39 Temperature 98.9 F 04/09/23 22:32 Pulse Rate 79 04/09/23 22:32 Respiratory Rate 18 04/09/23 22:32 Blood Pressure 132/68 04/09/23 22:32 Pulse Oximetry 99 04/09/23 22:31 Oxygen Delivery Method Room Air 04/09/23 22:31 Medical Decision Making MDM Narrative Medical decision making narrative: Less convincing exam for strep but given close contacts only reasonable to treat. This is the primary complaint. Do not see secondary cause at this time. Did give Hurricaine spray for temporary relief. Strep testing indeed positive. See patient discharge plan Medical Records Medical records reviewed: Yes I reviewed the patient's medical records Lab Data Lab results reviewed: Yes I reviewed the patient's lab results Labs: Lab Results 04/09/23 Range/Units 21:38 Group A Strep DNA DETECTED A (Not Detectd) Discharge Plan Discharge Clinical Impression: Acute streptococcal pharyngitis Patient Disposition: Home, Self-Care Condition: Stable Additional Instructions: Focus on hydration. Can take up to 800 mg of ibuprofen or up to 1000 mg of acetaminophen per dose. Anesthetic lozenges or sprays like Sucrets or Chloraseptic might be helpful. Might help sleep under the mist of a cool mist humidifier. Penicillin from [facility] Wipe down particularly bathroom surfaces. Boil on all toothbrushes for 3 minutes. Separate ?sick? toothbrushes from others and place in boiling water then again on day 3, day 6 and maybe 9. Prescriptions: No Action venlafaxine 150 mg capsule,extended release 24hr 75 mg PO DAILY gabapentin 300 mg capsule 300 mg PO HS ondansetron 4 mg tablet,disintegrating 4 mg PO Q8H PRN Probiotic 1 cap PO DAILY amlodipine 5 mg tablet 5 mg PO DAILY cyclobenzaprine 10 mg tablet 10 mg PO HS PRN dextroamphetamine-amphetamine 5 mg tablet 5 mg PO BID Hold Instructions: Order Change Patient Comments: take 1.5 tablets (7.5 mg) by mouth 2 times daily omeprazole 40 mg capsule,delayed release(DR/EC) 40 mg PO DAILY Qty: 30 0RF hydrochlorothiazide 12.5 mg tablet 12.5 mg PO DAILY quetiapine 25 mg tablet 25 mg PO DAILY Patient Comments: TAKE 1/2 TABLET BY MOUTH AT BEDTIME FOR 3 DAYS. INCREASE 1 TABLET BY MOUTH AT BEDTIME levofloxacin 500 mg tablet 500 mg PO DAILY Qty: 9 0RF acetaminophen-codeine 300-30 mg tablet 1 tab PO Q8H PRN (Reason: pain) Qty: 10 0RF ondansetron 4 mg tablet,disintegrating 4 mg PO Q6H Qty: 20 0RF Follow Up/Referrals: eRnae Baker PA-C [Primary Care Provider] - Stand Alone Forms: [employer] Info Instructions
[2023-04-09 22:17] LABS: Strep A DNA Probe* DETECTED (Not Detectd)
[2023-04-09 22:31] VITALS: BP 132/68; PULSE 79; RESP 18; TEMP 37.2; O2SAT 99
[2023-04-09 22:32] VITALS: BP 132/68; PULSE 79; RESP 18; TEMP 37.2
== END 2023-04-09 22:33 | disposition home or self-care (01) ==
PROVIDERS: Emergency Provider Family Medicine; PCP Student in an Organized Health Care Education/Training Program
DX: J02.0 Streptococcal pharyngitis (principal)
CPT/HCPCS: 87651; 99282; 99283

== ENCOUNTER 2023-05-14 18:59 | Outpatient (CLI) | payer MEDICAID, SELFPAY | END 2023-05-14 19:00 | disposition home or self-care (01) | LOC: AMB 05-15 11:08 | PROVIDERS: PCP Student in an Organized Health Care Education/Training Program; Visit Provider Family Medicine | DX: R06.09 Other forms of dyspnea (principal) | CPT/HCPCS: A0998 ==

== ENCOUNTER 2023-06-18 12:11 | Outpatient (CLI) | payer MEDICAID, SELFPAY ==
--- NOTE | 2023-06-18 12:42 | W.ANESCHARGE ---
Anesthesia Charges Start Date/Time Anesthesia Start Date: 06/18/23 Anesthesia Start Time: 12:50 Stop Date/Time Anesthesia Stop Date: 06/18/23 Anesthesia Stop Time: 13:28
--- NOTE | 2023-06-18 13:31 | W.ANESCHARGE ---
Anesthesia Charges Start Date/Time Anesthesia Start Date: 06/18/23 Anesthesia Start Time: 12:50 Stop Date/Time Anesthesia Stop Date: 06/18/23 Anesthesia Stop Time: 13:28
== END 2023-06-18 12:12 | disposition home or self-care (01) ==
PROVIDERS: PCP Student in an Organized Health Care Education/Training Program; Visit Provider Internal Medicine Gastroenterology
DX: R93.3 Abnormal findings on diagnostic imaging of other parts of digestive tract (principal); R10.33 Periumbilical pain; K63.5 Polyp of colon; R19.7 Diarrhea, unspecified; R11.15 Cyclical vomiting syndrome unrelated to migraine
CPT/HCPCS: 43239; 45380; 813; 88305; J2405; J2704

== ENCOUNTER 2023-08-04 12:35 | Emergency (ER) | payer MEDICAID, SELFPAY ==
[2023-08-04 12:45] VITALS: BP 126/89; PULSE 105; RESP 14; TEMP 36.7; O2SAT 98; BMI 34.7
--- NOTE | 2023-08-04 13:10 | ED_ITS ---
HPI - General Adult General Date Seen: 08/04/23 Chief complaint: Allergic Reaction Stated complaint: allergic reaction Time Seen by Provider: 08/04/23 12:36 Source: patient Mode of arrival: ambulatory Limitations: no limitations History of Present Illness HPI narrative: Patient is a 33-year-old female with history of dermatomyositis, lupus, fibromyalgia, presenting to emergency department for allergies and joint pain. She states for the past week she has been dealing with a scratchy throat and diffuse joint pain. She is on prescription dose hydroxyzine she states. Patient states she has had these symptoms several times in the past and they have been this bad several times in the past she states he has issues started on steroids in symptoms resolve. Patient states it has been while since she has last been here for these exact symptoms. Denies chest pain, shortness of breath, fevers, chills, abdominal pain, diarrhea, constipation, rash. The reason she these it is allergies is due to the scratchy feeling she feels in the back of her throat. States is not painful. No other concerns at this time Related Data Home Medications Medication Instructions Recorded Confirmed Probiotic 1 cap PO DAILY 05/11/22 12/04/22 gabapentin 300 mg capsule 300 mg PO HS 05/11/22 03/02/23 ondansetron 4 mg disintegrating 4 mg PO Q8H PRN 05/11/22 12/04/22 tablet venlafaxine 150 mg 75 mg PO DAILY 05/11/22 03/02/23 capsule,extended release 24 hr amlodipine 5 mg tablet 5 mg PO DAILY 07/16/22 12/04/22 cyclobenzaprine 10 mg tablet 10 mg PO HS PRN 07/16/22 03/02/23 dextroamphetamine-amphetamine 5 mg 5 mg PO BID 07/16/22 12/04/22 tablet hydrochlorothiazide 12.5 mg tablet 12.5 mg PO DAILY 11/17/22 03/02/23 quetiapine 25 mg tablet 25 mg PO DAILY 11/17/22 03/02/23 Previous Rx's Medication Instructions Recorded ondansetron 4 mg disintegrating 4 mg PO Q6H #20 tabs 08/03/22 tablet omeprazole 40 mg capsule,delayed 40 mg PO DAILY #30 caps 09/28/22 release acetaminophen 300 mg-codeine 30 mg 1 tab PO Q8H PRN pain #10 tabs 11/17/22 tablet levofloxacin 500 mg tablet 500 mg PO DAILY #9 tabs 11/17/22 Allergies Allergy/AdvReac Type Severity Reaction Status Date / Time latex Allergy Mild Rash Verified 04/09/23 21:41 oxycodone Allergy Mild Anxiety Verified 04/09/23 21:41 bupropion [From Wellbutrin] AdvReac Intermediate Mood Verified 04/09/23 21:41 Changes control Allergy Uncoded 06/18/23 14:43 [facility] Medical History Substance abuse ?F19.10 - Other psychoactive substance abuse, uncomplicated (ICD-10) Migraine ?G43.909 - Migraine, unspecified, not intractable, without status migrainosus (ICD-10) Alcohol abuse ?F10.10 - Alcohol abuse, uncomplicated (ICD-10) Dermatomyositis ?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 - Dermatopolymyositis, unspecified, organ involvement unspecified (ICD-10) History of Raynaud's syndrome ?Z86.79 - Personal history of other diseases of the circulatory system (ICD- 10) Fibromyalgia affecting multiple sites ?M79.7 - Fibromyalgia (ICD-10) Connective tissue disease ?M35.9 - Systemic involvement of connective tissue, unspecified (ICD-10) ADHD (attention deficit hyperactivity disorder) ?F90.9 - Attention-deficit hyperactivity disorder, unspecified type (ICD-10) Unspecified personality disorder ?F60.9 - Personality disorder, unspecified (ICD-10) TAHIR (generalized anxiety disorder) ?F41.1 - Generalized anxiety disorder (ICD-10) PTSD (post-traumatic stress disorder) ?F43.10 - Post-traumatic stress disorder, unspecified (ICD-10) Anxiety disorder ?F41.9 - Anxiety disorder, unspecified (ICD-10) Surgical History H/O vaginal hysterectomy ?Z90.710 - Acquired absence of both cervix and uterus (ICD-10) History of salpingectomy ?Z90.79 - Acquired absence of other genital organ(s) (ICD-10) History of left oophorectomy ?Z90.721 - Acquired absence of ovaries, unilateral (ICD-10) S/P LEEP (loop electrosurgical excision procedure) ?Z98.890 - Other specified postprocedural states (ICD-10) Social History Smoking Status: Current every day smoker What tobacco products do you use: cigarettes Do you use any of these nicotine containing products: None and E-Cigarettes Second hand tobacco smoke exposure: No How often do you have a drink containing alcohol: never AUDIT-C Alcohol total score: 0 Non-prescribed substance use: marijuana (any form) Non-prescribed substance use details: pt states she relapsed with alcohol use 12/03/22 service: No Exam Narrative: Exam Narrative: Const: Well-nourished, Well-developed, in mild distress Eyes: PERRL, no conjunctival injection, and symmetrical lids HENT: Atraumatic external nose and ears. Moist mucous membranes. Uvula midline, no tonsillar exudates or swelling Neck: Symmetric, trachea midline, No thyromegaly. CVS: RRR, No murmurs or gallops. Peripheral pulses 2+ and equal in all extremities RESP: Unlabored respiratory effort. Clear to auscultation bilaterally. GI: Nontender/Nondistended, No rebound or guarding. MSK:Extremities w/o deformity, Normal Active ROM Skin: Warm, Dry. No rashes or lesions. Neuro: Normal Muscle tone, No focal neurological deficits. Psych: Awake, Alert, & Oriented x3. Appropriate mood and affect. Const: Vital Signs, click to edit/add: Vital Signs - 24 hr 08/04/23 12:45 Temperature 98.1 F Pulse Rate [Pulse Oximeter] 105 H Respiratory Rate 14 Blood Pressure [Ri ght Upper Arm] 126/89 Pulse Oximetry 98 Oxygen Delivery Me thod Room Air Course Vital Signs Vital signs: Initial Vital Signs Temperature 98.1 F 08/04/23 12:45 Temperature Source Temporal Artery Scan 08/04/23 12:45 Pulse Rate 105 H 08/04/23 12:45 Pulse Rhythm Regular 08/04/23 12:45 Respiratory Rate 14 08/04/23 12:45 Blood Pressure 126/89 08/04/23 12:45 Blood Pressure Mean 101 08/04/23 12:45 Blood Pressure Position Sitting 08/04/23 12:45 Pulse Oximetry 98 08/04/23 12:45 Oxygen Delivery Method Room Air 08/04/23 12:45 Vital Signs Temperature 98.1 F 08/04/23 12:45 Pulse Rate 105 H 08/04/23 12:45 Respiratory Rate 14 08/04/23 12:45 Blood Pressure 126/89 08/04/23 12:45 Pulse Oximetry 98 08/04/23 12:45 Oxygen Delivery Method Room Air 08/04/23 12:45 Temperature 98.1 F 08/04/23 12:45 Pulse Rate 105 H 08/04/23 12:45 Respiratory Rate 14 08/04/23 12:45 Blood Pressure 126/89 08/04/23 12:45 Pulse Oximetry 98 08/04/23 12:45 Oxygen Delivery Method Room Air 08/04/23 12:45 Medical Decision Making MDM Narrative Medical decision making narrative: Patient is a 33-year-old female presented emergency department for which she s ays feels like allergies. She has had the same symptoms before and they have flared up her dermatomyositis and lupus. She states she has had these exact same symptoms before in steroids will help resolve them. We will order CBC BMP make sure there are no other concerning findings. Patient was given a dose of IV Solu-Medrol. Vital signs were stable other than some mild tachycardia. She is not having any signs of deep neck space abscesses in no signs of anaphylaxis. CBC returned showing no concerning abnormalities. Cbc and BMP showed no concerning abnormalities. She is doing well at this time we discharged home. She is agreeable to this plan Lab Data Labs: Lab Results 08/04/23 Range/Units 13:15 WBC 7.00 (4.50-11.00) K/uL RBC 5.13 (4.00-5.20) m/uL Hgb 14.3 (12.0-16.0) gm/dL Hct 44.5 (33.0-51.0) % MCV 87 (80-100) fL MCH 28 (26-34) pg MCHC 32 (32-36) gm/dL RDW Coeff of Tray 12.3 (11.5-15.5) % Plt Count 361 (140-440) K/uL Neut % (Auto) 64.2 (42.0-72.0) % Lymph % (Auto) 27.0 (20-44) % [place] % (Auto) 6.3 (0.0-11.0) % Eos % (Auto) 2.0 (0.0-7.0) % Baso % (Auto) 0.4 (0.0-3.0) % Neut # (Auto) 4.49 (1.7-7.0) K/uL Lymph # (Auto) 1.89 (0.90-2.90) K/uL [place] # (Auto) 0.40 (0.00-0.90) K/UL Eos # (Auto) 0.14 (0.00-0.50) K/uL Baso # (Auto) 0.03 (0.00-0.30) K/uL Abs Immat Gran (auto) 0.01 (0.00-0.30) K/uL Imm/Tot Granulo (auto) 0.1 % Discharge Plan Discharge Clinical Impression: Joint pain, Allergies Patient Disposition: Home, Self-Care Condition: Stable Instructions: General Allergic Reaction (ED) Additional Instructions: He can order picker your prednisone from [facility]. Start taking the medication 08/05/2023 for the next 4 days. Return for new or worsening symptoms. If sym ptoms persist follow-up with the primary care provider Prescriptions: No Action venlafaxine 150 mg capsule,extended release 24hr 75 mg PO DAILY gabapentin 300 mg capsule 300 mg PO HS ondansetron 4 mg tablet,disintegrating 4 mg PO Q8H PRN Probiotic 1 cap PO DAILY amlodipine 5 mg tablet 5 mg PO DAILY cyclobenzaprine 10 mg tablet 10 mg PO HS PRN dextroamphetamine-amphetamine 5 mg tablet 5 mg PO BID Hold Instructions: Order Change Patient Comments: take 1.5 tablets (7.5 mg) by mouth 2 times daily omeprazole 40 mg capsule,delayed release(DR/EC) 40 mg PO DAILY Qty: 30 0RF hydrochlorothiazide 12.5 mg tablet 12.5 mg PO DAILY quetiapine 25 mg tablet 25 mg PO DAILY Patient Comments: TAKE 1/2 TABLET BY MOUTH AT BEDTIME FOR 3 DAYS. INCREASE 1 TABLET BY MOUTH AT BEDTIME levofloxacin 500 mg tablet 500 mg PO DAILY Qty: 9 0RF acetaminophen-codeine 300-30 mg tablet 1 tab PO Q8H PRN (Reason: pain) Qty: 10 0RF ondansetron 4 mg tablet,disintegrating 4 mg PO Q6H Qty: 20 0RF Follow Up/Referrals: Renae Baker PA-C [Primary Care Provider] - Stand Alone Forms: [employer] Info Instructions
[2023-08-04 13:22] LABS: Basophils Absolute Auto 0.03 K/uL (0.00-0.30); Basophils Percent Auto 0.4 % (0.0-3.0); Eosinophils Absolute Auto 0.14 K/uL (0.00-0.50); Hematocrit 44.5 % (33.0-51.0); Hemoglobin* 14.3 gm/dL (12.0-16.0); Immature Granulocytes Abs Auto 0.01 K/uL (0.00-0.30); Immature Granulocytes Pct Auto 0.1 %; Lymphocytes Absolute Auto 1.89 K/uL (0.90-2.90); Mean Corpuscular HGB Conc 32 gm/dL (32-36); Mean Corpuscular Hemoglobin 28 pg (26-34); Mean Corpuscular Volume 87 fL (80-100); Monocytes Percent Auto 6.3 % (0.0-11.0); Neutrophils Absolute Auto 4.49 K/uL (1.7-7.0); Neutrophils Percent Auto 64.2 % (42.0-72.0); Platelet Count* 361 K/uL (140-440); RDW Coefficient of Variation % 12.3 % (11.5-15.5); Red Blood Count 5.13 m/uL (4.00-5.20)
[2023-08-04] MEDS: METHYLPREDNISOLONE SOD SUCC 62.5 MG/ML (125) 125 MG IVP (13:28)
[2023-08-04 13:29] LABS: Slide Review Reflex No
[2023-08-04 14:14] LABS: Chloride* 104 mmol/L (96-114); Potassium* 4.3 mmol/L (3.6-5.1); Sodium* 139 mmol/L (135-149)
[2023-08-04 14:17] LABS: Anion Gap 10 mEq/L (7-15); Blood Urea Nitrogen* 11 mg/dL (5-24); Calcium* 9.2 mg/dL (8.4-10.6); Carbon Dioxide* 25 mmol/L (20-32); Creatinine* 0.6 mg/dL (0.5-1.5); Est. Creatinine Clearance* 109.29; Estimated Glomerular Filt Rate 121 ml/min; Glucose* 84 mg/dL (60-115)
== END 2023-08-04 14:28 | disposition home or self-care (01) ==
PROVIDERS: Emergency Provider Student in an Organized Health Care Education/Training Program; PCP Student in an Organized Health Care Education/Training Program
DX: M25.50 Pain in unspecified joint (principal); T78.40XA Allergy, unspecified, initial encounter
CPT/HCPCS: 36415; 80048; 85025; 96374; 99283; 99284; J2930

== ENCOUNTER 2023-08-16 17:39 | Emergency (ER) | payer MEDICAID, SELFPAY ==
[2023-08-16 17:48] VITALS: BP 132/89; PULSE 111; RESP 18; TEMP 37.2; O2SAT 97; BMI 34.7
--- NOTE | 2023-08-16 17:54 | CRLHL7_ITS ---
For Patients: As a result of the Century Cures Act, medical imaging exams and procedure reports are released immediately into your electronic medical record. You may view this report before your referring provider. If you have questions, please contact your health care provider. INDICATION: Abdominal distention. TECHNIQUE: Multiplanar CT examination of the abdomen and pelvis were acquired after the administration of 96 mL Isovue 370 intravenously. COMPARISON: CT abdomen pelvis 03/16/2023. FINDINGS: Lower chest: Linear bandlike opacifications of the lung bases likely due to subsegmental atelectasis and/or scarring. No focal consolidation. Normal heart size for no pleural effusions or pneumothorax. Liver: Tiny hypodensity within the left hepatic lobe, likely represents a hepatic cyst. Otherwise, unremarkable. Gallbladder/Biliary: Normal. No biliary ductal dilitation. Pancreas: Normal. Spleen: Normal. Adrenal Glands: Normal. Kidneys: Normal size and symmetrically enhancing. No obstructive calculi or hydronephrosis. Ureters: Unremarkable. Bladder: Unremarkable. Bowel: No obstruction or bowel wall thickening. The appendix is normal. No significant colonic diverticulosis. Pelvic organs: There is a heterogeneous, solid structure in the right adnexal region measuring 3.9 cm (2:112), in close approximation with loops of the ileum. Structure likely has a crenulated peripherally enhancing hypodensity representing a corpus luteum. No left adnexal masses. Hysterectomy. Peritoneum: No free fluid or pneumoperitoneum. Vessels: Normal. Portal vein remains patent. No significant atherosclerotic disease. Lymph Nodes: No lymphadenopathy. Abdominal Wall/Soft Tissues: Unremarkable. Bones: Unremarkable. IMPRESSION: 1. 3.9 cm heterogeneous right adnexal structure, poorly characterized on this examination. This was not seen on the prior CT from 03/16/2023. Further evaluation with a transvaginal pelvic ultrasound for improved characterization is recommended. 2. Otherwise, no acute abdominopelvic pathology. No significant bowel wall thickening. Please note that all CT scans at this facility use dose modulation, iterative reconstruction, and/or weight-based dosing when appropriate to reduce radiation dose to as low as reasonably achievable. Dictated by Aidan Bean MD @ 08/16/2023 8:27:03 PM (Electronically Signed)
--- NOTE | 2023-08-16 18:04 | ED.GENADULT ---
HPI - General Adult General Time Seen by Provider: 18:04 Date Seen: 08/16/23 Chief complaint: Abdominal Pain Stated complaint: Autoimmune flare-up, bloating Time Seen by Provider: 08/16/23 17:42 History of Present Illness HPI narrative: This is a 33-year-old female with a complex past history including autoimmune diseases such as lupus, dermatomyositis, fibromyalgia, Raynaud's phenomena. She also has a history of alcohol abuse. She also has history of anxiety disorder, PTSD, prior hysterectomy, she also has a history of colitis-which was diagnosed on a CT scan done here in the ER in February. Unclear etiology. No definite infection. She had follow-up endoscopy and colonoscopy which were nondiagnostic of any clear autoimmune disease. She reports that she has had multiple previous episodes of abdominal pain, nausea and bloating that are similar to her episode of abdominal pain in February when she was diagnosed with colitis. However, the episode in February was the only episode which included a CT scan showing colitis. She has really had any flares since February but has been having a flare of generalized abdominal pain, nausea, bloating that started yesterday afternoon. She feels like this is reminiscent of her colitis. Bowel movements have been normal. No bloody or mucousy stool. No definite diarrhea. She has been nauseous but not vomiting. No fevers. No cough. She has had some sinus problems lately but has not been on any antibiotics. Related Data Home Medications Medication Instructions Recorded Confirmed Probiotic 1 cap PO DAILY 05/11/22 12/04/22 gabapentin 300 mg capsule 300 mg PO HS 05/11/22 03/02/23 ondansetron 4 mg disintegrating 4 mg PO Q8H PRN 05/11/22 12/04/22 tablet venlafaxine 150 mg 75 mg PO DAILY 05/11/22 03/02/23 capsule,extended release 24 hr amlodipine 5 mg tablet 5 mg PO DAILY 07/16/22 12/04/22 cyclobenzaprine 10 mg tablet 10 mg PO HS PRN 07/16/22 03/02/23 dextroamphetamine-amphetamine 5 mg 5 mg PO BID 07/16/22 12/04/22 tablet hydrochlorothiazide 12.5 mg tablet 12.5 mg PO DAILY 11/17/22 03/02/23 quetiapine 25 mg tablet 25 mg PO DAILY 11/17/22 03/02/23 Previous Rx's Medication Instructions Recorded ondansetron 4 mg disintegrating 4 mg PO Q6H #20 tabs 08/03/22 tablet omeprazole 40 mg capsule,delayed 40 mg PO DAILY #30 caps 09/28/22 release acetaminophen 300 mg-codeine 30 mg 1 tab PO Q8H PRN pain #10 tabs 11/17/22 tablet levofloxacin 500 mg tablet 500 mg PO DAILY #9 tabs 11/17/22 Allergies Allergy/AdvReac Type Severity Reaction Status Date / Time latex Allergy Mild Rash Verified 08/16/23 18:03 oxycodone Allergy Mild Anxiety Verified 08/16/23 18:03 bupropion [From Wellbutrin] AdvReac Intermediate Mood Verified 08/16/23 18:03 Changes control Allergy Uncoded 08/16/23 18:03 [facility] Medical History Substance abuse ?F19.10 - Other psychoactive substance abuse, uncomplicated (ICD-10) Migraine ?G43.909 - Migraine, unspecified, not intractable, without status migrainosus (ICD-10) Alcohol abuse ?F10.10 - Alcohol abuse, uncomplicated (ICD-10) Dermatomyositis ?M33.90 - Dermatopolymyositis, unspecified, organ involvement unspecified (ICD-10) History of Raynaud's syndrome ?Z86.79 - Personal history of other diseases of the circulatory system (ICD-10) Fibromyalgia affecting multiple sites ?M79.7 - Fibromyalgia (ICD-10) Connective tissue disease ?M35.9 - Systemic involvement of connective tissue, unspecified (ICD-10) ADHD (attention deficit hyperactivity disorder) ?F90.9 - Attention-deficit hyperactivity disorder, unspecified type (ICD-10) Unspecified personality disorder ?F60.9 - Personality disorder, unspecified (ICD-10) TAHIR (generalized anxiety disorder) ?F41.1 - Generalized anxiety disorder (ICD-10) PTSD (post-traumatic stress disorder) ?F43.10 - Post-traumatic stress disorder, unspecified (ICD-10) Anxiety disorder ?F41.9 - Anxiety disorder, unspecified (ICD-10) Surgical History H/O vaginal hysterectomy ?Z90.710 - Acquired absence of both cervix and uterus (ICD-10) History of salpingectomy ?Z90.79 - Acquired absence of other genital organ(s) (ICD-10) History of left oophorectomy ?Z90.721 - Acquired absence of ovaries, unilateral (ICD-10) S/P LEEP (loop electrosurgical excision procedure) ?Z98.890 - Other specified postprocedural states (ICD-10) Social History Smoking Status: Current every day smoker What tobacco products do you use: cigarettes Do you use any of these nicotine containing products: None and E-Cigarettes Second hand tobacco smoke exposure: No How often do you have a drink containing alcohol: never How often do you have six or more drinks on one occasion: Never AUDIT-C Alcohol total score: 0 Non-prescribed substance use: former substance user and marijuana (any form) Non-prescribed substance use details: none since the summer. service: No Exam Narrative: Exam Narrative: Constitutional: Appears well-developed and well-nourished. Alert. Conversant. Non toxic. HENT: Head: Atraumatic. Nose: Nose normal. Mouth/Throat: Oral mucosa is clear and moist. no trismus. Pharynx normal. Tonsils symmetric. No tonsillar enlargement, erythema, or exudate. Eyes: Conjunctivae normal. EOM normal. Pupils equal, round, and reactive to light. No scleral icterus. Neck: Normal range of motion. Neck supple. No tracheal deviation present. Cardiovascular: Normal rate, regular rhythm. No gallop. No friction rub. No murmur heard. Symmetric radial artery pulses Pulmonary/Chest: Effort normal. No stridor. No respiratory distress. No wheezes. No rales. No rhonchi . No tenderness. Abdominal: Soft. Bowel sounds normal. Abdomen is mildly protuberant, not tympanic.. No mass. Mild bilateral upper quadrant and suprapubic tenderness. No rebound. No guarding. No CVA tenderness. Well healed periumbilical laparoscopic incision. Musculoskeletal: RUE: Normal range of motion. No tenderness. No deformity LUE: Normal range of motion. No tenderness. No deformity RLE: Normal range of motion. No edema. No tenderness. No deformity LLE: Normal range of motion. No edema. No tenderness. No deformity Lymph: No cervical adenopathy. Neurological: Alert and oriented to person, place, and time. Normal strength. CN II-VII intact. No sensory deficit. GCS eye subscore is 4. GCS verbal subscore is 5. GCS motor subscore is 6. Normal coordination Skin: Skin is warm and dry. No rash noted. No pallor. Normal capillary refill. Psychiatric: Normal mood. Normal affect. Const: Vital Signs, click to edit/add: Vital Signs - 24 hr 08/16/23 17:48 Temperature 99 F Pulse Rate [Pulse Oximeter] 111 H Respiratory Rate 18 Blood Pressure [Ri t Upper Arm] 132/89 Pulse Oximetry 97 Oxygen Delivery Me thod Room Air Course Vital Signs Vital signs: Initial Vital Signs Temperature 99 F 08/16/23 17:48 Temperature Source Temporal Artery Scan 08/16/23 17:48 Pulse Rate 111 H 08/16/23 17:48 Pulse Rhythm Regular 08/16/23 17:48 Respiratory Rate 18 08/16/23 17:48 Blood Pressure 132/89 08/16/23 17:48 Blood Pressure Mean 103 08/16/23 17:48 Blood Pressure Position Supine 08/16/23 17:48 Pulse Oximetry 97 08/16/23 17:48 Oxygen Delivery Method Room Air 08/16/23 17:48 Vital Signs Temperature 99 F 08/16/23 17:48 Pulse Rate 111 H 08/16/23 17:48 Respiratory Rate 18 08/16/23 17:48 Blood Pressure 132/89 08/16/23 17:48 Pulse Oximetry 97 08/16/23 17:48 Oxygen Delivery Method Room Air 08/16/23 17:48 Temperature 99 F 08/16/23 17:48 Pulse Rate 111 H 08/16/23 17:48 Respiratory Rate 18 08/16/23 17:48 Blood Pressure 132/89 08/16/23 17:48 Pulse Oximetry 97 08/16/23 17:48 Oxygen Delivery Method Room Air 08/16/23 17:48 Medical Decision Making MDM Narrative Medical decision making narrative: Presented to the Emergency Department with generalized bloating abdominal pain associated with nausea. The differential diagnosis of abdominal pain includes: Appendicitis, Bowel Obstruction, Ulcer, Ischemia, Cholecystitis, Diverticulitis, Pancreatitis, UTI, kidney stone, Enteritis/Colitis, amongst many other etiologies. Patient feels that her symptoms are similar to a previous episode where she was diagnosed with colitis on CT scan here in the ER. Laboratory testing does not reveal a cause for the patient's pain. Transaminases are mildly abnormal, similar to measurements from February. Bilirubin normal. Lipase normal. Unclear etiology. She is not having any pain localizing directly to the right upper quadrant to suggest acute cholecystitis. The exact etiology of the abdominal pain is not clear at this time. After labs and obtaining CT imaging the patient and her boyfriend were insisting on expeditious discharged from the ER. I discussed with them that without CT scan it is difficult to exclude surgical emergency such as appendicitis. We discussed discharge home within for complete workup does carry risk including risk of progressing illness, perforation, worsening infection, etc.. Nonetheless, the patient verbalizes understanding and she has medical decision-making capacity. Therefore I will discharge her with a prescription for Zofran 0DT (her request) and I will call her for outpatient follow-up of her CT scan. .IMPRESSION: 1. 3.9 cm heterogeneous right adnexal structure, poorly characterized on this examination. This was not seen on the prior CT from 03/16/2023. Further evaluation with a transvaginal pelvic ultrasound for improved characterization is recommended. 2. Otherwise, no acute abdominopelvic pathology. No significant bowel wall thickening. I called the patient and updated her at 9:22 p.m.. She says she is doing well at home. Recommended that she do arrange expedition pelvic ultrasound. Based on her symptoms, with no localizing pain to the right lower quadrant, I have low clinical suspicion for ovarian torsion or other acute surgical emergency. She needs to stay home tonight because of transportation in with her boyfriend. Although return to the ER for immediate pelvic ultrasound imaging would be optimal, reasonable clinical judgment suggest that it is safe to wait until morning to get follow-up imaging tomorrow. She will try to follow up with her doctor and if unable to do that will return to the ER for pelvic ultrasound imaging. Clinical impression 1. Abdominal pain 2. Nausea 3. Right adnexal lesion, possible right ovarian cyst Lab Data Labs: Lab Results 08/16/23 08/16/23 Range/Units 18:15 19:02 WBC 9.87 (4.50-11.00) K/uL RBC 4.77 (4.00-5.20) m/uL Hgb 13.5 (12.0-16.0) gm/dL Hct 41.1 (33.0-51.0) % MCV 86 (80-100) fL MCH 28 (26-34) pg MCHC 33 (32-36) gm/dL RDW Coeff of Tray 12.7 (11.5-15.5) % Plt Count 345 (140-440) K/uL Neut % (Auto) 66.7 (42.0-72.0) % Lymph % (Auto) 23.7 (20-44) % [place] % (Auto) 6.2 (0.0-11.0) % Eos % (Auto) 2.7 (0.0-7.0) % Baso % (Auto) 0.4 (0.0-3.0) % Neut # (Auto) 6.58 (1.7-7.0) K/uL Lymph # (Auto) 2.34 (0.90-2.90) K/uL [place] # (Auto) 0.60 (0.00-0.90) K/UL Eos # (Auto) 0.27 (0.00-0.50) K/uL Baso # (Auto) 0.04 (0.00-0.30) K/uL Abs Immat Gran (auto) 0.03 (0.00-0.30) K/uL Imm/Tot Granulo (auto) 0.3 % Sodium 138 (135-149) mmol/L Potassium 4.0 (3.6-5.1) mmol/L Chloride 108 (96-114) mmol/L Carbon Dioxide 22 (20-32) mmol/L Anion Gap 8 (7-15) mEq/L BUN 13 (5-24) mg/dL Creatinine 0.6 (0.5-1.5) mg/dL Estimated Creat Clear 109.29 Estimated GFR 121 ml/min Glucose 90 (60-115) mg/dL Lactate 1.0 (0.5-1.9) mmol/L Calcium 9.1 (8.4-10.6) mg/dL Total Bilirubin 0.3 (0.1-1.5) mg/dL AST 48 H (12-35) U/L ALT 71 H (4-35) U/L Alkaline Phosphatase 130 (40-150) U/L Total Protein 7.1 (6.0-8.3) g/dL Albumin 4.2 (3.3-5.0) g/dL Lipase 112 (23-300) U/L Urine Color Yellow (Yellow) Urine Appearance Clear (Clear) Urine pH 7.0 (5.0-8.5) Ur Specific [place] >= 1.030 (1.000-1.030) Urine Protein 1+ A (Negative) Urine Glucose (UA) Negative (Negative) Urine Ketones Negative (Negative) Urine Blood Negative (Negative) Urine Nitrite Negative (Negative) Urine Bilirubin Negative (Negative) Urine Urobilinogen 0.2 (0.2-1.0) Ur Leukocyte Esterase Negative (Negative) Urine RBC 0-2 (0-2) Urine WBC 0-2 (0-5) Ur Squamous Epith Cells Many A (None-Few) Amorphous Sediment Few A (None) Urine Bacteria None (None) Urine HCG, Qual Negative (Negative) Discharge Plan Discharge Clinical Impression: Abdominal pain, Nausea Patient Disposition: Home, Self-Care Condition: Stable Instructions: Abdominal Pain (ED) Additional Instructions: Please recheck with your regular doctor tomorrow. Or if you change your mind or if your symptoms get worse, come back to the ER right away for re-evaluation. As we discussed the results of your CT scan are not back yet. I will call you this evening when the results are back. If you have any worsening pain, fever, vomiting, bloody stool, or any problems, come back to the ER. Use Zofran every 8 hours if needed for nausea. Prescriptions: No Action venlafaxine 150 mg capsule,extended release 24hr 75 mg PO DAILY gabapentin 300 mg capsule 300 mg PO HS ondansetron 4 mg tablet,disintegrating 4 mg PO Q8H PRN Probiotic 1 cap PO DAILY amlodipine 5 mg tablet 5 mg PO DAILY cyclobenzaprine 10 mg tablet 10 mg PO HS PRN dextroamphetamine-amphetamine 5 mg tablet 5 mg PO BID Hold Instructions: Order Change Patient Comments: take 1.5 tablets (7.5 mg) by mouth 2 times daily omeprazole 40 mg capsule,delayed release(DR/EC) 40 mg PO DAILY Qty: 30 0RF hydrochlorothiazide 12.5 mg tablet 12.5 mg PO DAILY quetiapine 25 mg tablet 25 mg PO DAILY Patient Comments: TAKE 1/2 TABLET BY MOUTH AT BEDTIME FOR 3 DAYS. INCREASE 1 TABLET BY MOUTH AT BEDTIME levofloxacin 500 mg tablet 500 mg PO DAILY Qty: 9 0RF acetaminophen-codeine 300-30 mg tablet 1 tab PO Q8H PRN (Reason: pain) Qty: 10 0RF ondansetron 4 mg tablet,disintegrating 4 mg PO Q6H Qty: 20 0RF Follow Up/Referrals: Renae Baker PA-C [Primary Care Provider] - Stand Alone Forms: [facility] Info Instructions
[2023-08-16] MEDS: 0.9 % SODIUM CHLORIDE 1000 ml 1,000 ML IV (18:18)
[2023-08-16] MEDS: ONDANSETRON 2 MG/ML inj 4 MG IVP (18:23)
[2023-08-16 18:28] LABS: Basophils Absolute Auto 0.04 K/uL (0.00-0.30); Basophils Percent Auto 0.4 % (0.0-3.0); Eosinophils Absolute Auto 0.27 K/uL (0.00-0.50); Eosinophils Percent Auto 2.7 % (0.0-7.0); Hematocrit 41.1 % (33.0-51.0); Hemoglobin* 13.5 gm/dL (12.0-16.0); Immature Granulocytes Abs Auto 0.03 K/uL (0.00-0.30); Immature Granulocytes Pct Auto 0.3 %; Lymphocytes Absolute Auto 2.34 K/uL (0.90-2.90); Lymphocytes Percent Auto 23.7 % (20-44); Mean Corpuscular HGB Conc 33 gm/dL (32-36); Mean Corpuscular Hemoglobin 28 pg (26-34); Mean Corpuscular Volume 86 fL (80-100); Monocytes Percent Auto 6.2 % (0.0-11.0); Neutrophils Absolute Auto 6.58 K/uL (1.7-7.0); Neutrophils Percent Auto 66.7 % (42.0-72.0); Platelet Count* 345 K/uL (140-440); RDW Coefficient of Variation % 12.7 % (11.5-15.5); Red Blood Count 4.77 m/uL (4.00-5.20); White Blood Count* 9.87 K/uL (4.50-11.00)
[2023-08-16 18:32] LABS: Slide Review Reflex No
[2023-08-16 18:49] LABS: Albumin* 4.2 g/dL (3.3-5.0); Chloride* 108 mmol/L (96-114); Sodium* 138 mmol/L (135-149)
[2023-08-16 18:52] LABS: Alanine Aminotransferase* 71 U/L (4-35); Alkaline Phosphatase* 130 U/L (40-150); Anion Gap 8 mEq/L (7-15); Aspartate Amino Transferase* 48 U/L (12-35); Bilirubin Total* 0.3 mg/dL (0.1-1.5); Blood Urea Nitrogen* 13 mg/dL (5-24); Calcium* 9.1 mg/dL (8.4-10.6); Carbon Dioxide* 22 mmol/L (20-32); Creatinine* 0.6 mg/dL (0.5-1.5); Est. Creatinine Clearance* 109.29; Estimated Glomerular Filt Rate 121 ml/min; Glucose* 90 mg/dL (60-115); Lipase* 112 U/L (23-300); Total Protein* 7.1 g/dL (6.0-8.3)
[2023-08-16 19:12] LABS: Appearance Urine Clear (Clear); Bilirubin Urine Negative (Negative); Blood Urine Negative (Negative); Color Urine Yellow (Yellow); Glucose Urine Negative (Negative); Ketones Urine Negative (Negative); Leukocyte Esterase Urine Negative (Negative); Nitrite Urine Negative (Negative); Protein Urine 1+ (Negative); Specific Gravity Urine >= 1.030 (1.000-1.030); Urobilinogen Urine 0.2 (0.2-1.0)
[2023-08-16 19:13] LABS: Ur HCG Qualitative* Negative (Negative)
[2023-08-16 19:21] LABS: Amorphous Sediment Urine Few; RBC Urine 0-2 (0-2); Squamous Epithelial Cell Urine Many (None-Few); WBC Urine 0-2 (0-5)
== END 2023-08-16 20:10 | disposition home or self-care (01) ==
PROVIDERS: Emergency Provider Emergency Medicine; PCP Student in an Organized Health Care Education/Training Program
DX: R10.9 Unspecified abdominal pain (principal); R11.0 Nausea
CPT/HCPCS: 36415; 74177; 80053; 81001; 81025; 83605; 83690; 85025; 96374; 99283; 99284; J2405; J7030; Q9967

== ENCOUNTER 2023-10-04 06:08 | Emergency (ER) | payer MEDICAID, SELFPAY ==
[2023-10-04 06:14] VITALS: BP 140/101; PULSE 110; RESP 22; TEMP 37.2; O2SAT 97; BMI 34.7
--- NOTE | 2023-10-04 06:50 | ED_ITS ---
HPI - General Adult General Chief complaint: Cough Stated complaint: possible bronchitis Time Seen by Provider: 10/04/23 06:13 Source: patient Mode of arrival: ambulatory Limitations: no limitations History of Present Illness HPI narrative: 33-year-old female that describes herself as a ?frequent Flyer? presents to the emergency department for evaluation of cough. Reports cough for the past 4 months, does smoke. Cough worsening over the last 4 days. Mucousy in nature. [place] febrile starting yesterday, does not have a thermometer at home to check. Feels chest congestion that started last night. Does have a history of frequent bronchitis, pneumonia in the past and does continue to smoke. Reports that she tried taking some Tylenol 1500 mg per dose and ibuprofen 1000 mg per dose with no improvement in her cough though it did seem to improve her fever she thinks. No nausea or vomiting, no trauma or injury. No severe shortness of breath. No history of asthma. No prior intubation for her pneumonia or bronchitis. No pertinent travel, no [id number] cough suppressants, no other urgent care or primary care visits prior to coming to the emergency department. Reports her past medical history is notable for fibromyalgia, mental health disorders, reported autoimmune disease, connective tissue disorder. Reports use of gabapentin, Seroquel, venlafaxine, Flexeril and p.r.n. Zofran. Allergy list is reviewed, these are all consistent with intolerance is except potentially latex listed in her chart which she did not report to me. ROS notable for the upper respiratory symptoms as described above, otherwise denies times 12 systems. Related Data Home Medications Medication Instructions Recorded Confirmed gabapentin 300 mg capsule 300 mg PO HS 05/11/22 10/04/23 ondansetron 4 mg disintegrating 4 mg PO Q8H PRN 05/11/22 10/04/23 tablet venlafaxine 150 mg 75 mg PO DAILY 05/11/22 10/04/23 capsule,extended release 24 hr cyclobenzaprine 10 mg tablet 10 mg PO HS PRN 07/16/22 10/04/23 hydrochlorothiazide 12.5 mg tablet 12.5 mg PO DAILY 11/17/22 10/04/23 atomoxetine 40 mg capsule 40 mg PO DAILY 10/04/23 10/04/23 clonidine HCl 0.1 mg tablet 0.1 mg PO DAILY 10/04/23 10/04/23 hydroxyzine pamoate 25 mg capsule 25 mg PO BID 10/04/23 10/04/23 quetiapine 50 mg tablet 50 mg PO DAILY 10/04/23 10/04/23 venlafaxine 75 mg capsule,extended 75 mg PO DAILY 10/04/23 10/04/23 release 24 hr Previous Rx's Medication Instructions Recorded omeprazole 40 mg capsule,delayed 40 mg PO DAILY #30 caps 09/28/22 release albuterol sulfate 90 mcg/actuation 2 puff inhalation QID PRN 10/04/23 aerosol inhaler shortness of breath or wheezing #6.7 grams prednisone 20 mg tablet 20 mg PO DAILY #5 tabs 10/04/23 Allergies Allergy/AdvReac Type Severity Reaction Status Date / Time latex Allergy Mild Rash Verified 10/04/23 06:18 oxycodone Allergy Mild Anxiety Verified 10/04/23 06:18 bupropion [From Wellbutrin] AdvReac Intermediate Mood Verified 10/04/23 06:18 Changes control Allergy Uncoded 08/16/23 18:03 [facility] Medical History Substance abuse ?F19.10 - Other psychoactive substance abuse, uncomplicated (ICD-10) Migraine ?G43.909 - Migraine, unspecified, not intractable, without status migrainosus (ICD-10) Alcohol abuse ?F10.10 - Alcohol abuse, uncomplicated (ICD-10) Dermatomyositis ?M33.90 - Dermatopolymyositis, unspecified, organ involvement unspecified (ICD-10) History of Raynaud's syndrome ?Z86.79 - Personal history of other diseases of the circulatory system (ICD- 10) Fibromyalgia affecting multiple sites ?M79.7 - Fibromyalgia (ICD-10) Connective tissue disease ?M35.9 - Systemic involvement of connective tissue, unspecified (ICD-10) ADHD (attention deficit hyperactivity disorder) ?F90.9 - Attention-deficit hyperactivity disorder, unspecified type (ICD-10) Unspecified personality disorder ?F60.9 - Personality disorder, unspecified (ICD-10) TAHIR (generalized anxiety disorder) ?F41.1 - Generalized anxiety disorder (ICD-10) PTSD (post-traumatic stress disorder) ?F43.10 - Post-traumatic stress disorder, unspecified (ICD-10) Anxiety disorder ?F41.9 - Anxiety disorder, unspecified (ICD-10) Surgical History H/O vaginal hysterectomy ?Z90.710 - Acquired absence of both cervix and uterus (ICD-10) History of salpingectomy ?Z90.79 - Acquired absence of other genital organ(s) (ICD-10) History of left oophorectomy ?Z90.721 - Acquired absence of ovaries, unilateral (ICD-10) S/P LEEP (loop electrosurgical excision procedure) ?Z98.890 - Other specified postprocedural states (ICD-10) Social History Smoking Status: Current every day smoker What tobacco products do you use: cigarettes Do you use any of these nicotine containing products: None and E-Cigarettes Second hand tobacco smoke exposure: No How often do you have a drink containing alcohol: never How often do you have six or more drinks on one occasion: Never AUDIT-C Alcohol total score: 0 Non-prescribed substance use: former substance user and marijuana (any form) Non-prescribed substance use details: none since the summer. service: No Exam Const: Vital Signs, click to edit/add: Vital Signs - 24 hr 10/04/23 06:14 Temperature 99.0 F Pulse Rate [Right Pulse Oximeter] 110 H Respiratory Rate 22 Blood Pressure [Le ft Upper Arm] 140/101 H Pulse Oximetry 97 Oxygen Delivery Me thod Room Air Documenting provider has reviewed patient's vital signs: yes Common normals: no apparent distress Other: Appears well nourished, nontoxic and well-hydrated. HENMT: Common normals: normocephalic and TM's normal bilaterally Head and scalp: normocephalic Face and sinus: normal facial exam Tympanic membrane: TM's normal bilaterally Mouth: oral and palatal mucosa normal Other: Mild clear mucus postnasal drip and clear mucus rhinorrhea noted. Eye: Common normals: conjunctivae normal General eye: normal appearance of both eyes Conjunctiva: conjunctiva(e) normal Neck & C-Spine: Common normals: full ROM and no lymphadenopathy Resp: Common normals: normal respiratory effort, no use of accessory muscles and clear to auscultation bilaterally Effort & inspection: able to speak in complete sentences Auscultation: clear to auscultation bilaterally Other: Mild upper airway congestion only. Cardio: Common normals: regular rate, regular rhythm, S1 normal heart sound, S2 normal heart sound and no murmurs Rate: regular rate Rhythm: regular rhythm Heart sounds: S1 normal and S2 normal Psych: Common normals: speech normal Appearance: grossly normal Speech: normal speech Insight: fair Judgement: fair Skin: Common normals: no rashes or lesions noted General skin exam: no rashes or lesions noted Course Course ED Course: Pulse improved to 84 at the time of my auscultation. Low-grade fever with no hypoxia. No indications for chest x-ray based on normal exam. Recommend swabs for COVID, influenza, RSV. Patient is a smoker and likely has some underlying COPD since she has been a smoker for nearly 20 years. If swabs are negative will plan to treat with a short course of prednisone and azithromycin with albuterol p.r.n.. Await swabs. Reevaluation(s) Time of Reevaluation #1: 07:33 Reevaluation #1: Reviewed findings with patient, positive for influenza B. Do not recommend antibiotics. Discussed risk and benefits of Tamiflu, likely day 4 of illness, will not show benefit from Tamiflu over conservative management. I do think she might be having some flare up of chronic respiratory disease based on her description and duration of cough. Therefore I do recommend a short course of prednisone and albuterol p.r.n.. Use discussed. Follow-up with primary care if not improving in 10 days for consideration of COPD testing, spirometry, potentially steroid inhalers. She verbalizes understanding and agreement. Alarm symptoms reviewed that would warrant ED presentation. See written instructions Vital Signs Vital signs: Initial Vital Signs Temperature 99.0 F 10/04/23 06:14 Temperature Source Temporal Artery Scan 10/04/23 06:14 Pulse Rate 110 H 10/04/23 06:14 Respiratory Rate 22 10/04/23 06:14 Respiratory Effort Normal, Spontaneous, Non-Labored 10/04/23 06:14 Respiratory Depth Normal 10/04/23 06:14 Respiratory Pattern Normal 10/04/23 06:14 Blood Pressure 140/101 H 10/04/23 06:14 Blood Pressure Mean 114 H 10/04/23 06:14 Blood Pressure Position Sitting 10/04/23 06:14 Pulse Oximetry 97 10/04/23 06:14 Oxygen Delivery Method Room Air 10/04/23 06:14 Vital Signs Temperature 99.0 F 10/04/23 06:14 Pulse Rate 110 H 10/04/23 06:14 Respiratory Rate 22 10/04/23 06:14 Blood Pressure 140/101 H 10/04/23 06:14 Pulse Oximetry 97 10/04/23 06:14 Oxygen Delivery Method Room Air 10/04/23 06:14 Temperature 99.0 F 10/04/23 06:14 Pulse Rate 110 H 10/04/23 06:14 Respiratory Rate 22 10/04/23 06:14 Blood Pressure 140/101 H 10/04/23 06:14 Pulse Oximetry 97 10/04/23 06:14 Oxygen Delivery Method Room Air 10/04/23 06:14 Medical Decision Making Lab Data Lab results reviewed: Yes I reviewed the patient's lab results Lab results narrative: Positive for influenza B. Labs: Lab Results 10/04/23 Range/Units 06:25 SARS-CoV-2 (PCR) Negative SARS-CoV-2 (Negative) Influenza Type A (PCR) Negative PCR FLU A (Negative) Influenza Type B (PCR) POSITIVE PCR FLU B A (Negative) RSV (PCR) Negative PCR RSV (Negative) Discharge Plan Discharge Clinical Impression: Influenza B Patient Disposition: Home, Self-Care Condition: Stable Instructions: Influenza (DC) Additional Instructions: As we discussed, your swabs are positive for influenza B. This would certainly explain the worsening cough and fever. Symptoms tend to last about 7-8 days in most people. GI side effects are also common. Antibiotics are unfortunately not helpful for this condition. It is safe to assume that you are on day 4 of illness, therefore treatment with Tamiflu would also not be helpful and could potentially have were side effects than benefit. I do not recommend Tamiflu for you at this time. As we discussed, I do think you could benefit from a short course of prednisone. I will send a prescription to your pharmacy for 20 mg once daily for 5 days. I will also send an albuterol inhaler to use for coughing fits. Give this 10 days. If her symptoms have not improved markedly, I would recommend that you see your primary care doctor to discuss potentially a steroid inhaler for preventative therapy. If you get severely short of breath, are severely weak or have other signs of complications, please come back to the emergency department. I have given you a work note to be off for the next 2 days. Activity Level: Activity as Tolerated Discharge Diet: Regular Prescriptions: New prednisone 20 mg tablet 20 mg PO DAILY Qty: 5 0RF albuterol sulfate 90 mcg/actuation HFA aerosol inhaler 2 puff inhalation QID PRN (Reason: shortness of breath or wheezing) Qty: 6.7 0RF No Action venlafaxine 150 mg capsule,extended release 24hr 75 mg PO DAILY gabapentin 300 mg capsule 300 mg PO HS ondansetron 4 mg tablet,disintegrating 4 mg PO Q8H PRN cyclobenzaprine 10 mg tablet 10 mg PO HS PRN omeprazole 40 mg capsule,delayed release(DR/EC) 40 mg PO DAILY Qty: 30 0RF hydrochlorothiazide 12.5 mg tablet 12.5 mg PO DAILY atomoxetine 40 mg capsule 40 mg PO DAILY Rx Instructions: take 1 1/2 tabs daily clonidine HCl 0.1 mg tablet 0.1 mg PO DAILY hydroxyzine pamoate 25 mg capsule 25 mg PO BID quetiapine 50 mg tablet 50 mg PO DAILY venlafaxine 75 mg capsule,extended release 24hr 75 mg PO DAILY Follow Up/Referrals: Renae Baker PA-C [Primary Care Provider] - Stand Alone Forms: [employer]er Info Instructions
[2023-10-04 07:09] LABS: PCR FLU A Negative PCR FLU A (Negative); PCR FLU B POSITIVE PCR FLU B (Negative); PCR RSV Negative PCR RSV (Negative)
[2023-10-04 07:18] LABS: SARS PCR* Negative SARS-CoV-2 (Negative)
== END 2023-10-04 07:39 | disposition home or self-care (01) ==
PROVIDERS: Emergency Provider Family Medicine; PCP Student in an Organized Health Care Education/Training Program
DX: J10.1 Influenza due to other identified influenza virus with other respiratory manifestations (principal)
CPT/HCPCS: 87631; 99283

== ENCOUNTER 2023-10-10 13:41 | Emergency (ER) | payer MEDICAID, SELFPAY ==
[2023-10-10 13:49] VITALS: BP 132/102; PULSE 116; RESP 18; TEMP 36.2; O2SAT 95; BMI 34.2
--- NOTE | 2023-10-10 14:31 | ED.WEAKNESS ---
HPI - Weakness General Date Seen: 10/10/23 Chief complaint: Weakness Stated complaint: Vomiting, dehydration Time Seen by Provider: 10/10/23 13:45 Source: patient Mode of arrival: ambulatory Limitations: no limitations History of Present Illness HPI Narrative: Patient is a 33-year-old female with pertinent medical issues use presenting to the emergency department for nausea, vomiting, abdominal pain. She states she was diagnosed with influenza 2 days ago. She has of the past 36 hours she has been having severe diffuse abdominal pain and nausea toe with vomiting. She states she has not been to keep anything down over the past 36 hours even with her Zofran and is feeling very dehydrated and weak. She states that her family is also having flu-like symptoms. States the chest pain and shortness of breath she initially had has gone away and she believes the inhalers and steroids she was prescribed her helping with that. States she has intermittent fevers and chills. She does states she is feeling weak but denies any numbness. Denies any vision changes. Related Data Home Medications Medication Instructions Recorded Confirmed gabapentin 300 mg capsule 300 mg PO HS 05/11/22 10/04/23 ondansetron 4 mg disintegrating 4 mg PO Q8H PRN 05/11/22 10/04/23 tablet venlafaxine 150 mg 75 mg PO DAILY 05/11/22 10/04/23 capsule,extended release 24 hr cyclobenzaprine 10 mg tablet 10 mg PO HS PRN 07/16/22 10/04/23 hydrochlorothiazide 12.5 mg tablet 12.5 mg PO DAILY 11/17/22 10/04/23 atomoxetine 40 mg capsule 40 mg PO DAILY 10/04/23 10/04/23 clonidine HCl 0.1 mg tablet 0.1 mg PO DAILY 10/04/23 10/04/23 hydroxyzine pamoate 25 mg capsule 25 mg PO BID 10/04/23 10/04/23 quetiapine 50 mg tablet 50 mg PO DAILY 10/04/23 10/04/23 venlafaxine 75 mg capsule,extended 75 mg PO DAILY 10/04/23 10/04/23 release 24 hr Previous Rx's Medication Instructions Recorded omeprazole 40 mg capsule,delayed 40 mg PO DAILY #30 caps 09/28/22 release albuterol sulfate 90 mcg/actuation 2 puff inhalation QID PRN 10/04/23 aerosol inhaler shortness of breath or wheezing #6.7 grams prednisone 20 mg tablet 20 mg PO DAILY #5 tabs 10/04/23 metoclopramide HCl 10 mg tablet 10 mg PO Q6H PRN nausea and 10/10/23 (Reglan) vomiting #14 tabs Allergies Allergy/AdvReac Type Severity Reaction Status Date / Time latex Allergy Mild Rash Verified 10/10/23 13:49 oxycodone Allergy Mild Anxiety Verified 10/10/23 13:49 bupropion [From Wellbutrin] AdvReac Intermediate Mood Verified 10/10/23 13:49 Changes control Allergy Uncoded 08/16/23 18:03 Review of Systems Status of ROS: Reports: 10 or more systems reviewed and unremarkable except as noted in History and below PFSH [facility] Medical History Substance abuse ?F19.10 - Other psychoactive substance abuse, uncomplicated (ICD-10) Migraine ?G43.909 - Migraine, unspecified, not intractable, without status migrainosus (ICD-10) Alcohol abuse ?F10.10 - Alcohol abuse, uncomplicated (ICD-10) Dermatomyositis ?M33.90 - Dermatopolymyositis, unspecified, organ involvement unspecified (ICD-10) History of Raynaud's syndrome ?Z86.79 - Personal history of other diseases of the circulatory system (ICD-10) Fibromyalgia affecting multiple sites ?M79.7 - Fibromyalgia (ICD-10) Connective tissue disease ?M35.9 - Systemic involvement of connective tissue, unspecified (ICD-10) ADHD (attention deficit hyperactivity disorder) ?F90.9 - Attention-deficit hyperactivity disorder, unspecified type (ICD-10) Unspecified personality disorder ?F60.9 - Personality disorder, unspecified (ICD-10) TAHIR (generalized anxiety disorder) ?F41.1 - Generalized anxiety disorder (ICD-10) PTSD (post-traumatic stress disorder) ?F43.10 - Post-traumatic stress disorder, unspecified (ICD-10) Anxiety disorder ?F41.9 - Anxiety disorder, unspecified (ICD-10) Surgical History H/O vaginal hysterectomy ?Z90.710 - Acquired absence of both cervix and uterus (ICD-10) History of salpingectomy ?Z90.79 - Acquired absence of other genital organ(s) (ICD-10) History of left oophorectomy ?Z90.721 - Acquired absence of ovaries, unilateral (ICD-10) S/P LEEP (loop electrosurgical excision procedure) ?Z98.890 - Other specified postprocedural states (ICD-10) Social History Smoking Status: Current every day smoker What tobacco products do you use: cigarettes Do you use any of these nicotine containing products: None and E-Cigarettes Second hand tobacco smoke exposure: No How often do you have a drink containing alcohol: never How often do you have six or more drinks on one occasion: Never AUDIT-C Alcohol total score: 0 Non-prescribed substance use: former substance user and marijuana (any form) Non-prescribed substance use details: none since the summer. service: No Exam Narrative: Exam Narrative: Const: Well-nourished, Well-developed, in mild distress Eyes: PERRL, no conjunctival injection, and symmetrical lids HENT: Atraumatic external nose and ears. Moist mucous membranes. Neck: Symmetric, trachea midline, No thyromegaly. CVS: RRR, No murmurs or gallops. Peripheral pulses 2+ and equal in all extremities RESP: Unlabored respiratory effort. Clear to auscultation bilaterally. GI: Diffuse abdominal tenderness, Nondistended, No rebound or guarding. MSK:Extremities w/o deformity, Normal Active ROM Skin: Warm, Dry. No rashes or lesions. Neuro: Normal Muscle tone, No focal neurological deficits. Psych: Awake, Alert, & Oriented x3. Appropriate mood and affect. Const: Vital Signs, click to edit/add: Vital Signs - 24 hr 10/10/23 13:49 Temperature 97.1 F L Pulse Rate [Right Pulse Oximeter] 116 H Respiratory Rate 18 Blood Pressure [Ri ght Upper Arm] 132/102 H Pulse Oximetry 95 Oxygen Delivery Me thod Room Air Course Vital Signs Vital signs: Initial Vital Signs Temperature 97.1 F L 10/10/23 13:49 Temperature Source Temporal Artery Scan 10/10/23 13:49 Pulse Rate 116 H 10/10/23 13:49 Pulse Rhythm Regular 10/10/23 13:49 Pulse Strength 3+ Normal 10/10/23 13:49 Respiratory Rate 18 10/10/23 13:49 Blood Pressure 132/102 H 10/10/23 13:49 Blood Pressure Mean 112 H 10/10/23 13:49 Blood Pressure Position Sitting 10/10/23 13:49 Pulse Oximetry 95 10/10/23 13:49 Oxygen Delivery Method Room Air 10/10/23 13:49 Vital Signs Temperature 97.1 F L 10/10/23 13:49 Pulse Rate 116 H 10/10/23 13:49 Respiratory Rate 18 10/10/23 13:49 Blood Pressure 132/102 H 10/10/23 13:49 Pulse Oximetry 95 10/10/23 13:49 Oxygen Delivery Method Room Air 10/10/23 13:49 Temperature 97.1 F L 10/10/23 13:49 Pulse Rate 116 H 10/10/23 13:49 Respiratory Rate 18 10/10/23 13:49 Blood Pressure 132/102 H 10/10/23 13:49 Pulse Oximetry 95 10/10/23 13:49 Oxygen Delivery Method Room Air 10/10/23 13:49 Medications Administered Medications: Discontinued Medications Generic Name Dose Route Start Last Admin Trade Name Freq PRN Reason Stop Dose Admin Lactated Ringer's 1,000 mls @ 1,000 mls/hr 10/10/23 14:19 10/10/23 15:49 Lactated Ringers 1000 Ml IV 10/10/23 15:18 Infused .Q1H ONE Infusion Ketorolac Tromethamine 15 mg 10/10/23 14:19 10/10/23 15:02 Ketorolac 15 Mg/Ml Inj IVP 10/10/23 14:20 15 mg ONCE ONE Administration Ondansetron HCl 4 mg 10/10/23 14:19 10/10/23 15:02 Ondansetron 2 Mg/Ml Inj IVP 10/10/23 14:20 4 mg ONCE ONE Administration MDM - Weakness MDM Narrative Medical decision making narrative: Patient is a 33-year-old female presented emergency department for abdominal pain and nausea. She has previously been diagnosed with influenza a couple days ago. The symptoms are likely viral gastroenteritis but she is tachycardic anywhere O further evaluate this. Patient given Toradol for pain and a L fluids along with Zofran for her nausea. We will check a lipase check for signs of pancreatitis, liver panel to look at liver in gallbladder issues in order cbc with chemistries. She has had previous hysterectomy and has been having diarrhea but I do think an SBO seems unlikely at this time. I do not believe imaging is necessary it and would not benefit this patient as she is only 33 and otherwise healthy Lab work all returned showing no concerning abnormalities. She is feeling much better after the medications. She states the Zofran home was not helping so I will try some oral Reglan. She is agreeable to this plan will be discharged home. Symptoms are all most likely secondary to influenza. Lab Data Labs: Lab Results 10/10/23 Range/Units 14:58 WBC 5.74 (4.50-11.00) K/uL RBC 5.02 (4.00-5.20) m/uL Hgb 14.1 (12.0-16.0) gm/dL Hct 42.2 (33.0-51.0) % MCV 84 (80-100) fL MCH 28 (26-34) pg MCHC 33 (32-36) gm/dL RDW Coeff of Tray 12.4 (11.5-15.5) % Plt Count 283 (140-440) K/uL Neut % (Auto) 77.8 H (42.0-72.0) % Lymph % (Auto) 14.6 L (20-44) % [place] % (Auto) 6.4 (0.0-11.0) % Eos % (Auto) 0.7 (0.0-7.0) % Baso % (Auto) 0.2 (0.0-3.0) % Neut # (Auto) 4.50 (1.7-7.0) K/uL Lymph # (Auto) 0.80 L (0.90-2.90) K/uL [place] # (Auto) 0.40 (0.00-0.90) K/UL Eos # (Auto) 0.04 (0.00-0.50) K/uL Baso # (Auto) 0.01 (0.00-0.30) K/uL Abs Immat Gran (auto) 0.02 (0.00-0.30) K/uL Imm/Tot Granulo (auto) 0.3 % Sodium 135 (135-149) mmol/L Potassium 3.8 (3.6-5.1) mmol/L Chloride 100 (96-114) mmol/L Carbon Dioxide 26 (20-32) mmol/L Anion Gap 9 (7-15) mEq/L BUN 10 (5-24) mg/dL Creatinine 0.6 (0.5-1.5) mg/dL Estimated Creat Clear 109.29 Estimated GFR 121 ml/min Glucose 91 (60-115) mg/dL Lactate 0.7 (0.5-1.9) mmol/L Calcium 9.1 (8.4-10.6) mg/dL Total Bilirubin 0.5 (0.1-1.5) mg/dL AST 38 H (12-35) U/L ALT 49 H (4-35) U/L Alkaline Phosphatase 118 (40-150) U/L Total Protein 7.6 (6.0-8.3) g/dL Albumin 4.7 (3.3-5.0) g/dL Lipase 46 (23-300) U/L Discharge Plan Discharge Clinical Impression: Influenza B Patient Disposition: Home, Self-Care Condition: Improved Instructions: Influenza (ED) Additional Instructions: Your abdominal symptoms are likely from the influenza. Of the scribe the Reglan for the nausea. If he taking near feeling jittery take 25-50 mg of Benadryl with it. Follow-up the primary care provider symptoms continue. Otherwise return to the emergency department for new or worsening symptoms Prescriptions: New metoclopramide HCl [Reglan] 10 mg tablet 10 mg PO Q6H PRN (Reason: nausea and vomiting) Qty: 14 0RF No Action venlafaxine 150 mg capsule,extended release 24hr 75 mg PO DAILY gabapentin 300 mg capsule 300 mg PO HS ondansetron 4 mg tablet,disintegrating 4 mg PO Q8H PRN cyclobenzaprine 10 mg tablet 10 mg PO HS PRN omeprazole 40 mg capsule,delayed release(DR/EC) 40 mg PO DAILY Qty: 30 0RF hydrochlorothiazide 12.5 mg tablet 12.5 mg PO DAILY atomoxetine 40 mg capsule 40 mg PO DAILY Rx Instructions: take 1 1/2 tabs daily clonidine HCl 0.1 mg tablet 0.1 mg PO DAILY hydroxyzine pamoate 25 mg capsule 25 mg PO BID quetiapine 50 mg tablet 50 mg PO DAILY venlafaxine 75 mg capsule,extended release 24hr 75 mg PO DAILY prednisone 20 mg tablet 20 mg PO DAILY Qty: 5 0RF albuterol sulfate 90 mcg/actuation HFA aerosol inhaler 2 puff inhalation QID PRN (Reason: shortness of breath or wheezing) Qty: 6.7 0RF Follow Up/Referrals: Renae Baker PA-C [Primary Care Provider] - Stand Alone Forms: [employer] Info Instructions
[2023-10-10] MEDS: ONDANSETRON 2 MG/ML inj 4 MG IVP (15:02)
[2023-10-10] MEDS: LACTATED RINGERS 1000 ML 1,000 ML IV (15:02)
[2023-10-10] MEDS: KETOROLAC 15 MG/ML inj IVP (15:02)
[2023-10-10 15:08] LABS: Lactate* 0.7 mmol/L (0.5-1.9)
[2023-10-10 15:12] LABS: Basophils Absolute Auto 0.01 K/uL (0.00-0.30); Basophils Percent Auto 0.2 % (0.0-3.0); Eosinophils Absolute Auto 0.04 K/uL (0.00-0.50); Eosinophils Percent Auto 0.7 % (0.0-7.0); Hematocrit 42.2 % (33.0-51.0); Hemoglobin* 14.1 gm/dL (12.0-16.0); Immature Granulocytes Abs Auto 0.02 K/uL (0.00-0.30); Immature Granulocytes Pct Auto 0.3 %; Lymphocytes Percent Auto 14.6 % (20-44); Mean Corpuscular HGB Conc 33 gm/dL (32-36); Mean Corpuscular Hemoglobin 28 pg (26-34); Mean Corpuscular Volume 84 fL (80-100); Monocytes Percent Auto 6.4 % (0.0-11.0); Neutrophils Percent Auto 77.8 % (42.0-72.0); Platelet Count* 283 K/uL (140-440); RDW Coefficient of Variation % 12.4 % (11.5-15.5); Red Blood Count 5.02 m/uL (4.00-5.20); White Blood Count* 5.74 K/uL (4.50-11.00)
[2023-10-10 15:16] LABS: Slide Review Reflex No
[2023-10-10 15:40] LABS: Albumin* 4.7 g/dL (3.3-5.0); Chloride* 100 mmol/L (96-114); Potassium* 3.8 mmol/L (3.6-5.1); Sodium* 135 mmol/L (135-149)
[2023-10-10 15:42] LABS: Bilirubin Total* 0.5 mg/dL (0.1-1.5); Creatinine* 0.6 mg/dL (0.5-1.5); Est. Creatinine Clearance* 109.29; Estimated Glomerular Filt Rate 121 ml/min
[2023-10-10 15:43] LABS: Alanine Aminotransferase* 49 U/L (4-35); Alkaline Phosphatase* 118 U/L (40-150); Anion Gap 9 mEq/L (7-15); Aspartate Amino Transferase* 38 U/L (12-35); Blood Urea Nitrogen* 10 mg/dL (5-24); Calcium* 9.1 mg/dL (8.4-10.6); Carbon Dioxide* 26 mmol/L (20-32); Glucose* 91 mg/dL (60-115); Lipase* 46 U/L (23-300); Total Protein* 7.6 g/dL (6.0-8.3)
== END 2023-10-10 15:56 | disposition home or self-care (01) ==
PROVIDERS: Emergency Provider Student in an Organized Health Care Education/Training Program; PCP Student in an Organized Health Care Education/Training Program
DX: J10.1 Influenza due to other identified influenza virus with other respiratory manifestations (principal)
CPT/HCPCS: 36415; 80053; 83605; 83690; 85025; 95992; 96374; 96375; 99283; J1885; J2405; J7120

== ENCOUNTER 2023-11-22 18:55 | Emergency (ER) | payer MEDICAID, SELFPAY ==
[2023-11-22 19:06] VITALS: BP 137/96; PULSE 104; RESP 16; TEMP 36.3; O2SAT 100; BMI 38.6
--- NOTE | 2023-11-22 19:10 | ED.GENADULT ---
HPI - General Adult General Date Seen: 11/22/23 Chief complaint: Unspecified Complaint, Adult Stated complaint: nerve pain left side Time Seen by Provider: 11/22/23 19:04 History of Present Illness HPI narrative: This is a pleasant 33-year-old female with a complex past history including autoimmune diseases, reported as lupus, dermatomyositis, fibromyalgia, Raynaud's, as well as migraine headaches, substance abuse and alcohol abuse, fibromyalgia, ADHD, anxiety, PTSD, tobacco use. I saw her here in the ER for abdominal pain in July. Most recent visits to the ER were October 04 and . She was seen on 10/04/2023 for cough. PCR negative for influenza, but positive for influenza B. given prescription for prednisone and albuterol. Seen again in the ER on 10/10/2023 for nausea, vomiting, abdominal pain in the setting of her influenza B. labs were checked and normal. Treated with Toradol and Zofran and fluids. She says that she has recovered from all of her recent viral illnesses and for the 1st time in a couple of months has been feeling very good for the past several days. She has a job at [employer] and works long hours there. She is working yesterday. Beginning last night and through today she has had a flare of what she believes is her fibromyalgia pain. She is having a area of pain in her left lower rib cage / left flank as well as an area of pain in her left posterior buttock, behind her left hip, and area of pain in her left medial thigh and left anteromedial distal sim. She feels like she can point to each area of pain as if it is a spot where she had an injection. These are flaring today. She took her normal meds including gabapentin and venlafaxine but they are not helping. She has also tried warm packs, stretching and other activities that she normally uses to deal both her fibromyalgia. She says those interventions did not decrease there pain at all. She knows that she will need something stronger to manage her pain today. She tried to go to the urgent care but was turned away because they were closing their business hours and were busy. Therefore she came here to the ER. She is not having any other symptoms. No fever. No cough. No trouble breathing. No other pain in her back. She has a history of sciatica but is not having any low back pain or other symptoms similar to that tonight. No numbness or weakness down her arm or down her leg. No anterior chest pain. No pain with breathing. No anterior abdominal pain. Urination has been normal. No dysuria, urgency, frequency, hematuria. Bowel movements normal. No rashes. No known injuries. No swelling in her legs. No numbness or tingling or weakness in her leg or in her foot. Related Data Home Medications Medication Instructions Recorded Confirmed gabapentin 300 mg capsule 300 mg PO HS 05/11/22 11/22/23 ondansetron 4 mg disintegrating 4 mg PO Q8H PRN 05/11/22 11/22/23 tablet venlafaxine 150 mg 75 mg PO DAILY 05/11/22 11/22/23 capsule,extended release 24 hr cyclobenzaprine 10 mg tablet 10 mg PO HS PRN 07/16/22 11/22/23 hydroxyzine pamoate 25 mg capsule 25 mg PO BID 10/04/23 11/22/23 quetiapine 50 mg tablet 50 mg PO DAILY 10/04/23 11/22/23 venlafaxine 75 mg capsule,extended 75 mg PO DAILY 10/04/23 11/22/23 release 24 hr metformin 500 mg tablet mg PO BID 11/22/23 Previous Rx's Medication Instructions Recorded omeprazole 40 mg capsule,delayed 40 mg PO DAILY #30 caps 09/28/22 release albuterol sulfate 90 mcg/actuation 2 puff inhalation QID PRN 10/04/23 aerosol inhaler shortness of breath or wheezing #6.7 grams Allergies Allergy/AdvReac Type Severity Reaction Status Date / Time latex Allergy Mild Rash Verified 10/10/23 13:49 oxycodone Allergy Mild Anxiety Verified 10/10/23 13:49 bupropion [From Wellbutrin] AdvReac Intermediate Mood Verified 10/10/23 13:49 Changes control Allergy Uncoded 08/16/23 18:03 [facility] Medical History Substance abuse ?F19.10 - Other psychoactive substance abuse, uncomplicated (ICD-10) Migraine ?G43.909 - Migraine, unspecified, not intractable, without status migrainosus (ICD-10) Alcohol abuse ?F10.10 - Alcohol abuse, uncomplicated (ICD-10) Dermatomyositis ?M33.90 - Dermatopolymyositis, unspecified, organ involvement unspecified (ICD-10) History of Raynaud's syndrome ?Z86.79 - Personal history of other diseases of the circulatory system (ICD-10) Fibromyalgia affecting multiple sites ?M79.7 - Fibromyalgia (ICD-10) Connective tissue disease ?M35.9 - Systemic involvement of connective tissue, unspecified (ICD-10) ADHD (attention deficit hyperactivity disorder) ?F90.9 - Attention-deficit hyperactivity disorder, unspecified type (ICD-10) Unspecified personality disorder ?F60.9 - Personality disorder, unspecified (ICD-10) TAHIR (generalized anxiety disorder) ?F41.1 - Generalized anxiety disorder (ICD-10) PTSD (post-traumatic stress disorder) ?F43.10 - Post-traumatic stress disorder, unspecified (ICD-10) Anxiety disorder ?F41.9 - Anxiety disorder, unspecified (ICD-10) Surgical History H/O vaginal hysterectomy ?Z90.710 - Acquired absence of both cervix and uterus (ICD-10) History of salpingectomy ?Z90.79 - Acquired absence of other genital organ(s) (ICD-10) History of left oophorectomy ?Z90.721 - Acquired absence of ovaries, unilateral (ICD-10) S/P LEEP (loop electrosurgical excision procedure) ?Z98.890 - Other specified postprocedural states (ICD-10) Social History Smoking Status: Current every day smoker What tobacco products do you use: cigarettes Do you use any of these nicotine containing products: None and E-Cigarettes Second hand tobacco smoke exposure: No How often do you have a drink containing alcohol: never How often do you have six or more drinks on one occasion: Never AUDIT-C Alcohol total score: 0 Non-prescribed substance use: former substance user and marijuana (any form) service: No Exam Narrative: Exam Narrative: Constitutional: Appears well-developed and well-nourished. Alert. Conversant. Sitting up in her exam chair. Non toxic. HENT: Head: Atraumatic. Nose: Nose normal. Mouth/Throat: Oral mucosa is clear and moist. no trismus. Pharynx normal. Tonsils symmetric. No tonsillar enlargement, erythema, or exudate. Eyes: Conjunctivae normal. EOM normal. Pupils equal, round, and reactive to light. No scleral icterus. Neck: Normal range of motion. Neck supple. No tracheal deviation present. Cardiovascular: Normal rate, regular rhythm. No gallop. No friction rub. No murmur heard. Symmetric radial and posterior tibial artery pulses Pulmonary/Chest: Effort normal. No stridor. No respiratory distress. No wheezes. No rales. No rhonchi . No tenderness. Abdominal: Soft.No distension. No mass. No tenderness. No rebound. No guarding. Musculoskeletal: RUE: Normal range of motion. No tenderness. No deformity LUE: Normal range of motion. No tenderness. No deformity RLE: Normal range of motion. No edema. No tenderness. No deformity LLE: Normal range of motion. No edema. No tenderness. No deformity She has not small area of point tenderness in her left flank/left lower rib cage that is tender to palpation. No rash or bruising. She also has a small area of tenderness in her left posterior buttock posterior to her left hip. Also in her left medial distal quad muscle and her left distal sim. There is no erythema, bruising, swelling, rash, at the any dislocations. Normal range of motion in her hip, knee, ankle. Neurological: Alert and oriented to person, place, and time. Normal strength. CN II-VII intact. No sensory deficit. GCS eye subscore is 4. GCS verbal subscore is 5. GCS motor subscore is 6. Normal coordination Sensory: Normal light touch sensation bilaterally on the anteromedial thigh (L3), medial malleolus (L4), dorsal first web space (L5), lateral malleolus (S1). Strength: 5/5 strength hip flexors (L3) on the right and left 5/5 strength in the quadriceps (L4) on the right and left 5/5 strength in the tibialis anterior 5/5 strength in the EHL (L5) on the right and left 5/5 strength in the gastrocnemius (S1) on the right and left 5/5 strength in the hamstring on the right and left Negative straight leg raise bilaterally. Skin: Skin is warm and dry. No rash noted. No pallor. Normal capillary refill. Psychiatric: Normal mood. Normal affect. Const: Vital Signs, click to edit/add: Vital Signs - 24 hr 11/22/23 19:06 Temperature 97.4 F L Pulse Rate [Left P ulse Oximeter] 104 H Respiratory Rate 16 Blood Pressure [Le ft Upper Arm] 137/96 H Pulse Oximetry 100 Oxygen Delivery Me thod Room Air Course Vital Signs Vital signs: Initial Vital Signs Temperature 97.4 F L 11/22/23 19:06 Temperature Source Temporal Artery Scan 11/22/23 19:06 Pulse Rate 104 H 11/22/23 19:06 Respiratory Rate 16 11/22/23 19:06 Blood Pressure 137/96 H 11/22/23 19:06 Blood Pressure Mean 109 H 11/22/23 19:06 Blood Pressure Position Sitting 11/22/23 19:06 Pulse Oximetry 100 11/22/23 19:06 Oxygen Delivery Method Room Air 11/22/23 19:06 Vital Signs Temperature 97.4 F L 11/22/23 19:06 Pulse Rate 104 H 11/22/23 19:06 Respiratory Rate 16 11/22/23 19:06 Blood Pressure 137/96 H 11/22/23 19:06 Pulse Oximetry 100 11/22/23 19:06 Oxygen Delivery Method Room Air 11/22/23 19:06 Temperature 97.4 F L 11/22/23 19:06 Pulse Rate 104 H 11/22/23 19:06 Respiratory Rate 16 11/22/23 19:06 Blood Pressure 137/96 H 11/22/23 19:06 Pulse Oximetry 100 11/22/23 19:06 Oxygen Delivery Method Room Air 11/22/23 19:06 Medical Decision Making [facility] Narrative Medical decision making narrative: This is a 33-year-old female with a complex past history most notable for fibromyalgia, lupus, autoimmune disease. She deals with chronic pain and flares of pain in her body on a daily basis. She presents to the ER today with a flare of pain involving her left back/flank, left posterior hip, left distal/medial thigh, and left distal sim. She feels that this is a flare of her fibromyalgia. No clear trigger and no recent illness with this. No injury. Differential is broad. At this point she is not have any other urinary symptoms to suggest kidney stone or pyelonephritis. No swelling in her legs. No pleuritic chest pain or trouble breathing or hypoxia to suggest PE. No abnormal lung sounds to suggest a left lower lobe pneumonia or pleural effusion. n o swelling in either leg or calf to suggest DVT. No history of DVT or PE. No anterior abdominal pain. No fever. No rash to suggest shingles. No signs of erythema to suggest any infection or abscess or cellulitis at any of the sites of her pain. Low suspicion for lumbar radiculopathy or sciatica, given patchy/non dermatomal sites of pain. no midline T or L spine pain. Symmetric radial and DP pulses and only patchy areas of pain would argue against vascular emergency such as dissection or acute limb ischemia. I had a long discussion with the patient. Ultimately she really does not want any workup for the source of her pain. She is highly confident that this is a flare of her fibromyalgia. She came to the ER seeking analgesia. She normally uses venlafaxine and gabapentin but they are ineffective today. Although she has oxycodone listed as an allergy she does feel like in the past oxycodone has worked for her. She says as long she takes 5 mg or less it does not cause side effects. We had a discussion about chronic pain. Discussed that prescriptions for opiates through the ER could be detrimental to her chronic pain syndrome as well as jeopardize her relationship with her primary care provider. Would not give any pr interval opiates through the ER and patient is agreeable to that. Instymeds prescription for oxycodone tablets-4. Provided. This would treat her pain tonight and she will follow-up with her primary care provider tomorrow if ongoing pain. She understands that I would not provide further prescriptions for opiates through the ER for her fibromyalgia. Opiate precautions reviewed. She will not take her meds until she safely home. She understands the risk of side effects and addiction. Discharge Plan Discharge Clinical Impression: Acute left flank pain, Acute pain of left hip, Left leg pain Patient Disposition: Home, Self-Care Condition: Stable Instructions: Flank Pain (ED), Leg Pain (ED) Additional Instructions: As we discussed, we have not done any workup for the cause of her pain here in the ER tonight. If your pain gets worse or if you have any other concerning symptoms, return to the ER immediately to be rechecked. If you need further pain medications you should see your primary care provider for new prescriptions. We cannot provide further opiate prescriptions for fibromyalgia pain from the ER. Use caution with oxycodone, because it can cause drowsiness, constipation, and can be addictive. Do not drive while taking oxycodone. Prescriptions: No Action venlafaxine 150 mg capsule,extended release 24hr 75 mg PO DAILY gabapentin 300 mg capsule 300 mg PO HS ondansetron 4 mg tablet,disintegrating 4 mg PO Q8H PRN cyclobenzaprine 10 mg tablet 10 mg PO HS PRN omeprazole 40 mg capsule,delayed release(DR/EC) 40 mg PO DAILY Qty: 30 0RF hydroxyzine pamoate 25 mg capsule 25 mg PO BID quetiapine 50 mg tablet 50 mg PO DAILY venlafaxine 75 mg capsule,extended release 24hr 75 mg PO DAILY albuterol sulfate 90 mcg/actuation HFA aerosol inhaler 2 puff inhalation QID PRN (Reason: shortness of breath or wheezing) Qty: 6.7 0RF metformin 500 mg tablet PO BID Follow Up/Referrals: Renae Baker PA-C [Primary Care Provider] - Stand Alone Forms: [employer] Info Instructions
--- OUTSIDE RECORDS SUMMARY | 2023-11-22 19:55 | XMS_ITS | Clinical Summary ---
Author Name Unknown Organization [facility] [employer] [facility] Address [place], [place] [address] Care Team Providers Care Strings Teacher Name Role Phone Renae Baker Primary Care Provider [phone] Allergies Active Allergy Reactions Criticality Noted Date Comments Bupropion Hcl Other - Describe In Comment Field 12/17/2012 Hydrocodone Bitartrate Other - Describe In Comment Field 05/24/2016 Hydrocodone-Acetaminophen Nausea Only 3 Latex Edema 10/07/2009 Medroxyprogesterone Intolerance-Can't Take 01/24/2014 MEDROXYPROGESTER ONE ACETATE - SEVERE MOOD CHANGES Unlisted Allergen (Include Detail In Comments) Other - Describe In Comment Field High 07/16/2022 All forms of Control; severe mood changes Oxycodone Other - Describe In Comment Field 05/24/2016 Bupropion 05/22/2008 Did not react well mentally Medications Medication Sig Dispensed Refills Start Date End Date Status omeprazole (PRILOSEC) 40 mg Delayed-Release capsule Take 40 mg by mouth once daily. 0 09/29/2022 Active gabapentin (NEURONTIN) 300 mg capsuleIndications:F ibromyalgia affecting multiple sites,Muscle cramp, nocturnal Take 4 Capsules (1,200 mg) by mouth at bedtime. 120 Capsule 6 06/14/2023 Active ondansetron (ZOFRAN ODT) 4 mg disintegrating tabletIndications:In termittent vomiting DISSOLVE 1 TABLET(4 MG) ON THE TONGUE EVERY 8 HOURS NEEDED FOR NAUSEA OR VOMITING 30 Tablet 3 09/03/2023 Active QUEtiapine (SEROQUEL) 50 mg tabletIndications:Mi ld episode of recurrent major depressive disorder (HC) Take 1-2 Tablets (50-100 mg) by mouth at bedtime. 180 Tablet 0 09/12/2023 Active venlafaxine (EFFEXOR XR) 75 mg cp24 Extended-Release capsuleIndications:M ild episode of recurrent major depressive disorder (HC) Take 1 Capsule (75 mg) by mouth once daily with a meal. 90 Capsule 0 09/12/2023 Active venlafaxine (EFFEXOR XR) 150 mg Extended-Release capsuleIndications:M ild episode of recurrent major depressive disorder (HC) TAKE 1 CAPSULE(150 MG) BY MOUTH EVERY DAY WITH A MEAL with the 75mg dose for total 225 mg daily 90 Capsule 0 09/12/2023 Active hydrOXYzine pamoate (VISTARIL) 25 mg capsuleIndications:A nxiety Take 1 capsule (25mg) by mouth twice daily as needed for anxiety/ sleep 60 Capsule 2 10/01/2023 Active cyclobenzaprine (FLEXERIL) 10 mg tabletIndications:Mu scle spasm,Fibromyalgia affecting multiple sites Take 1 Tablet (10 mg) by mouth at bedtime if needed for Muscle Spasm. May take 1-2 tablets as needed at bedtime. 60 Tablet 6 10/16/2023 Active metFORMIN (GLUCOPHAGE) 500 mg tabletIndications:We ight gain due to medication Take 0.5 Tablets (250 mg) by mouth two times daily with meals. Then increase to 1 tab by mouth twice daily with meals 60 Tablet 0 10/30/2023 Active hydroCHLOROthiazide 12.5 mg tabletIndications:HT N (hypertension) Take 1 Tablet (12.5 mg) by mouth once daily. 90 Tablet 0 05/24/2023 4 Discontinue d(*Med complete/Re gimen complete/Le dima of care change) Active Problems Problem Noted Date Diagnosed Date Bipolar 1 disorder 11/05/2023 Last Assessment & Plan: Chart update only. RONALDO Sheth .................... 11/05/2023 7:07 AM Alcohol abuse 03/30/2022 Overview: History of excessive alcohol use, declines referral to treatment Dermatomyositis 08/18/2021 Last Assessment & Plan: Chart update only. RONALDO Sheth .................... 11/05/2023 7:07 AM Hx of Raynaud's syndrome 01/30/2017 Fibromyalgia affecting multiple sites 01/11/2017 Connective tissue disease (HC) - ? dermatomyosit is 12/16/2016 Overview: Rheumatology consult 2018 - elevated CK Follow-up testing for myositis specific antibodies showed weakly positive anti-ME-2 antibody. EMG without findings for myositis Started on plaquenil - patient stopped Attention deficit hyperactivity disorder (ADHD) 07/21/2010 Anxiety disorder; NOS PTSD and TAHIR symptoms 03/30 Unspecified personality diso rder; borderline, dependent traits 04/26/2010 Unspecified episodic mood di sorder; rule out Bipolar Disorder, Cyclothymia and rule out borderline personality disorder 04/26/2010 Overview: Seen by psychiatric nurse practitioner in 2009. Refused mood stabilizers and other medication options. Resolved Problems Problem Noted Date Diagnosed Date Resolved Date Unspecified hyperkinetic syn drome of childhood 07/12/2010 07/21/2010 Overview: Provisional: Likely ADHD, but of secondary importance compared to personality and mood disorder Rule out Bipolar disorder, u nspecified and Cyclothymia vs. borderline or explosive personality disorder 04/26/2010 04/26/2010 Supervision of normal first 04/08/2009 04/05/2010 Encounters Date Type Department Care Team Description 11/13/2023 Refill [facility] [address] [place] [address] Renae Baker PA Refill Request (Ondansetron) 11/02/2023 9:45 AM CLIP LOADING MACHINE ADJUSTER Ancillary Procedure [facility] [address] [place] [address] 11/02/2023 8:50 AM CLIP LOADING MACHINE ADJUSTER Orders Only [facility] [address] [place] [address] Lab, [facility] Lab 11/02/2023 Telephone [facility] [address] [place] [phone] Cardiology, Anw Appointment (ANY CARD) 11/02/2023 Travel 10/30/2023 1:00 PM CLIP LOADING MACHINE ADJUSTER Office Visit [facility] [address] [place] [address] Bernadine Baker NP Follow Up; Medication Management 10/30/2023 Telephone [facility] [address] [place] [address] Bernadine Baker NP Follow Up 10/30/2023 Telephone [facility] [address] [place] [address] Renae Baker PA Follow Up 10/30/2023 Travel 10/16/2023 10:45 AM CLIP LOADING MACHINE ADJUSTER Office Visit [address] [address] Renae Baker PA Concerns (08/20 ED found mass on ovary- note scanned into chart/Discuss Weight loss) 10/16/2023 Travel 09/28/2023 Refill [facility] [address] [place] [address] Renae Baker PA Refill Request (Hydroxyzine Pamoate) 09/12/2023 9:00 AM CLIP LOADING MACHINE ADJUSTER Telemedicine [facility] [address] [place] [address] Bernadine Baker NP Telehealth; Medication List Update (Not using Golytely suppository.) 09/12/2023 Travel 08/30/2023 Refill [facility] [address] [place] [address] Renae Baker PA Refill Request (Ondansetron) from Last 3 Months Immunizations Name Administration Dates Next Due COVID-19 vaccine (Moderna 100mcg/0.5mL) PF, MDV 07/23/2021,06/25/2021 DTP 03/06/1991, 0,1989, 989 DTaP 02/22/1994 HIB PRP-T (ActHIB,Hiberix) 03/06/1991 Hepatitis B (Adult) 04/28/1998,11/16/1997,1996 Hepatitis B (Peds) 04/28/1998,11/16/1997, 997 MMR 02/06/2001,08/21/1990 Oral Polio Vaccine 02/22/1994, 1,1989, 989 Polio (Oral Polio Vaccine,Unspecified) 02/22/1994,03/06/1991,1989, 989 Td (Age >=7 Years) 06/09/2004,11/26/1999 Tdap 05/25/2016 Family History Medical History Relation Name Comments Good Health Father Alcohol/Drug Mother Fibromyalgia Mother Psychiatric illness Mother Rheum arthritis Mother Heart Disease Paternal Grandfather ?ME ag e 64 Relation Name Status Comments Father Mother Paternal Grandfather Social History Tobacco Use Types Packs/Day Years Used Date Smoking Tobacco: Former Cigarettes 1 23.1 1 999 - 2013 Smokeless Tobacco: Never Alcohol Use Standard Drinks/Week Comments Not Currently 12 (1 standard drink = 0.6 oz pure alcohol) 1 month sober as of 06/12/2023 PHQ-2 Answer Date Recorded PHQ-2 TOTAL SCORE 2 10/30/2023 Social Connections Answer Date Recorded Frequency of Communication with Friends and Fami ly Not on file 10/04/2023 Financial Resource Strain Answer Date R ecorded Difficulty of Paying Living Expenses 3 03/16/2022 Difficulty of Paying Living Expenses Not on file 03/16/2022 Food Insecurity Answer Date Recorded Worried About Running Out of Food in the Last Ye ar 1 03/16/2022 Transportation Needs Answer Date Record ed Lack of Transportation (Medical) 1 03/16/2022 Housing Stability Answer Date Recorded Unable to Pay for Housing in the Last Year 1 03/16/2022 Sex and Gender Information Value Date Recorded Sex Assigned at Not on file Gender Identity Not on file Sexual Orientation Not on file Obstetrics History Para Term AB IAB SAB Ectopic Multiple Livin g Live Births 2 2 2 0 0 0 0 0 0 2 2 Date Outcome GA Total Labor Labor/2nd/3rd Weight Sex Delivery Anes PTL Melba A1 A5 Name Cl in 12/11 /2009 Term 39w 0d 6h 00m/ 2.81 kg (6 lb 3 oz) F Vag Nicole ng 7 9 [place] Delivery Location:[place] 05/23 Term 38w 0d M Vag-Spont Epidu ral Nicole ng Last Filed Vital Signs Vital Sign Reading Time Taken Comments Blood Pressure 131/86 10/30/2023 12:58 PM CLIP LOADING MACHINE ADJUSTER Pulse 116 10/30/2023 12:58 PM CLIP LOADING MACHINE ADJUSTER I have an abnormally high pulse. My resting pulse is 80 bpm. Temperature 37.1 ??C (98.7 ??F) 11/06/2022 1 0:52 AM CLIP LOADING MACHINE ADJUSTER Respiratory Rate 20 07/07/2010 8:37 AM CDT Oxygen Saturation 97% 10/16/2023 10: 48 AM CLIP LOADING MACHINE ADJUSTER Inhaled Oxygen Concentration - - Weight 96.2 kg (212 lb) 10/30/2023 12:5 8 PM CLIP LOADING MACHINE ADJUSTER Height 161.3 cm (5' 3.5) 2023 8: 44 AM CDT Body Mass Index 36.97 2023 8:44 AM CDT Plan of Treatment Upcoming Encounters Date Type Department Care Team (Late st Contact Info) Description 01/08/2024 10:30 AM CDT Office Visit [facility] [address] [place] [address] Bernadine Baker, NAINA [address] [place] [address] Health Maintenance Due Date Last Done Comments Pneumococcal series for age 6-64 (1 of 2 - PCV) 1995 COVID-19 vaccine series (3 - 2022- season) 2023 07/23/2021, 06/25/2021 Influenza for age 9-49 06/29/2023 BMI (ht and wt on same day) for age 18+ 2024 2023, 03/07/2023, 10/01/2019, Additional history exists Depression screening for age 12+ 11/02/2024 11/02/2023, 11/02/2023, 10/30/2023, Additional history exists Tetanus booster 05/25/2026 05/25/2016, 05/29, 11/26/1999 HIV for age 15-65 Completed 03/30/2009 Tdap Completed 05/25/2016 Hepatitis C screening for ag e 18-79 Completed 03/20/2023 Procedures Procedure Name Priority Date/Time Associated Diagnosis Comments US PELVIS COMPLETE TV Routine 11/02/2023 10:55 AM CLIP LOADING MACHINE ADJUSTER Mass of right ovary COMP METABOLIC PANEL Routine 11/02/2023 10:17 AM CLIP LOADING MACHINE ADJUSTER Weight gain due to medication CK TOTAL Routine 10/16/2023 11:48 AM CLIP LOADING MACHINE ADJUSTER Elevated CK from Last 3 Months Results * US PELVIS COMPLETE TV (11/02/2023 10:55 AM CLIP LOADING MACHINE ADJUSTER) Anatomical Region Laterality Modality Pelvis, OVARIES, UTERUS Ultrasou nd 11/02/2023 11:5 4 AM CLIP LOADING MACHINE ADJUSTER Impressions 11/02/2023 11:54 AM CLIP LOADING MACHINE ADJUSTER Right ovary not visualized. Dictated by Daryn Rawls MD @ Oct ??2023 11:54AM (Electronically Signed) ?? Narrative 11/02/2023 11:54 AM CLIP LOADING MACHINE ADJUSTER For Patients: ??As a result of the Cures Act, medical imaging exams and procedure reports are released immediately into your electronic medical record. ??You may view this report before your referring provider. ??If you have questions, please contact your health care provider. CLINICAL HISTORY: Follow up pelvic cyst on outside CT TECHNIQUE: 2D monk scale and color Doppler images were acquired of the pelvis using a transvaginal approach. FINDINGS: Uterus is absent. Left ovary absent. Right ovary not visualized. No pelvic free fluid. Procedure Note Dayrn Rawls MD - 11/02/2023 For Patients: As a result of the Cures Act, medical imagingexams and procedure reports are released immediately into your electronicmedical record. You may view this report before your referring provider.If you have questions, please contact your health care provider. CLINICAL HISTORY: Follow up pelvic cyst on outside CT TECHNIQUE: 2D monk scale and color Doppler images were acquired of the pelvis using atransvaginal approach. FINDINGS: Uterus is absent. Left ovary absent. Right ovary not visualized. No pelvicfree fluid. IMPRESSION: Right ovary not visualized. Dictated by Daryn Rawls MD @ Nov 02 2023 11:54AM (Electronically Signed) Renae HIGGINS * (ABNORMAL) COMP METABOLIC PANEL (11/02/2023 10:17 AM CLIP LOADING MACHINE ADJUSTER) SODIUM 139 136 - 145 mmol/L 11/02/2023 5:01 PM [facility] POTASSIUM 4.2 3.5 - 5.1 mmol/L 11/02/2023 5:01 PM [facility] CHLORIDE 103 98 - 107 mmol/L 11/02/2023 5:01 PM [facility] CO2,TOTAL 21(L) 22 - 29 mmol/L 11/02/2023 5:01 PM [facility] ANION GAP 15 5 - 18 11/02/2023 5:01 PM [facility] GLUCOSE 96 70 - 99 mg/dL 11/02/2023 5:01 PM [facility] CALCIUM 9.3 8.6 - 10.0 mg/dL 11/02/2023 5:01 PM [facility] BUN 13 6 - 20 mg/dL 11/02/2023 5:01 PM [facility] CREATININE 0.75 0.50 - 0.90 mg/dL 11/02/2023 5:01 PM [facility] BUN/CREAT RATIO 17 10 - 20 5:01 PM [facility] eGFR >90 >90 mL/min/1.7 3m2 11/02/2023 5:01 PM [facility] Comment:As of 2022, eG FR is calculated by the CKD-EPI creatinine equation without race adjustment. ??eGFR can be influenced by muscle mass, exercise, and diet. ??The reported eGFR is an estimation only and is only applicable if the renal function is stable. ALBUMIN 4.3 4.0 - 4.9 g/dL 11/02/2023 5:01 PM CLIP LOADING MACHINE ADJUSTER [facility] PROTEIN,TOTAL 6.6 6.0 - 8.0 g/dL 11/02/2023 5:01 PM CLIP LOADING MACHINE ADJUSTER [facility] BILIRUBIN,TOTAL 0.2 0.0 - 1.2 mg/dL 11/02/2023 5:01 PM CLIP LOADING MACHINE ADJUSTER [facility] ALK PHOSPHATASE 114(H) 35 - 104 IU/L 11/02/2023 5:01 PM CLIP LOADING MACHINE ADJUSTER [facility] ALT (SGPT) 31 10 - 35 IU/L 11/02/2023 5:01 PM CLIP LOADING MACHINE ADJUSTER [facility] AST (SGOT) 30 10 - 35 IU/L 11/02/2023 5:01 PM [facility] Blood BLOOD SPECIMEN / Unknown Butterfly / Unknown 11/02/2023 10:17 AM CLIP LOADING MACHINE ADJUSTER 11/02/2023 10:19 AM CLIP LOADING MACHINE ADJUSTER Bernadine Baker NP CHEMISTRY Performing Organization Address City/[facility]/ZIP Co de Phone Number [facility] [address] [place] [address] * (ABNORMAL) CK TOTAL (10/16/2023 11:48 AM CLIP LOADING MACHINE ADJUSTER) CK,TOTAL 348(H) 26 - 192 IU/L 10/16/2023 9:12 PM CLIP LOADING MACHINE ADJUSTER [facility] Blood BLOOD SPECIMEN / Unknown Butterfly / Unknown 10/16/2023 11:48 AM CLIP LOADING MACHINE ADJUSTER 10/16/2023 11:49 AM CLIP LOADING MACHINE ADJUSTER Renae HIGGINS CHEMISTRY [facility] [address] [place] [address] from Last 3 Months Care Teams Strings Teacher Relationship Specialty Start Date End Date Renae Baker PA [address] [place] [address] PCP - General Physician Field Clerk 02/19/23
--- NOTE | 2023-11-22 21:19 | PC.NURSE ---
patient DC ambulatory, all DC instructions reviewed with patient w/o further questions. all belongings sent with patient
== END 2023-11-22 19:57 | disposition home or self-care (01) ==
LOC: ED 19:53
PROVIDERS: Emergency Provider Emergency Medicine; PCP Student in an Organized Health Care Education/Training Program
DX: R10.9 Unspecified abdominal pain (principal); M25.552 Pain in left hip; M79.605 Pain in left leg
CPT/HCPCS: 99283

== ENCOUNTER 2024-04-21 21:59 | Emergency (ER) | payer MEDICAID, SELFPAY ==
[2024-04-21 22:11] VITALS: BP 135/89; PULSE 111; RESP 16; TEMP 36.4; O2SAT 96; BMI 33.7
--- NOTE | 2024-04-21 22:14 | ED_ITS ---
HPI - General Adult General Chief complaint: Headache/Migraine Stated complaint: migraine/no vision left eye Time Seen by Provider: 04/21/24 22:12 History of Present Illness HPI narrative: 5 days of migraine has tried Tylenol, ibuprofen, and her usual migraine meds w /o relief. headache and blurred L eye, states this is similar to her previous migraines. pain across entire head. no weakness or nuero deficit. 34-year-old woman presenting to the emergency department with concern of headache. Underlying history of migraines. She is here with migraine somewhat centered around her left eye but also says that the entire ?cap? of her head is involved. No noted discoordination. Is having some blurriness of her left eye but this is not unusual with migraines. No fever or rash. Tried usual migraine meds she says in addition to acetaminophen and ibuprofen without relief. She is requesting IV fluids and a ?tiny bag? gesturing to a small what I would presume to be piggyback medication. She would also like something to help her sleep noting oxycodone in [facility] specifically just 1 tablet she says. Otherwise she is pleased to report that she continues to maintain her sobriety from alcohol. Related Data Home Medications ?Medication ?Instructions ?Recorded ?Confirmed gabapentin 300 mg capsule 300 mg PO HS 05/11/22 11/22/23 ondansetron 4 mg disintegrating 4 mg PO Q8H PRN 05/11/22 11/22/23 tablet venlafaxine 150 mg 75 mg PO DAILY 05/11/22 11/22/23 capsule,extended release 24 hr cyclobenzaprine 10 mg tablet 10 mg PO HS PRN 07/16/22 11/22/23 hydroxyzine pamoate 25 mg capsule 25 mg PO BID 10/04/23 11/22/23 quetiapine 50 mg tablet 50 mg PO DAILY 10/04/23 11/22/23 venlafaxine 75 mg capsule,extended 75 mg PO DAILY 10/04/23 11/22/23 release 24 hr metformin 500 mg tablet mg PO BID 11/22/23 Previous Rx's ?Medication ?Instructions ?Recorded omeprazole 40 mg capsule,delayed 40 mg PO DAILY #30 caps 09/28/22 release albuterol sulfate 90 mcg/actuation 2 puff inhalation QID PRN 10/04/23 aerosol inhaler shortness of breath or wheezing #6.7 grams Allergies Allergy/AdvReac Type Severity Reaction Status Date / Time latex Allergy Mild Rash Verified 10/10/23 13:49 oxycodone Allergy Mild Anxiety Verified 10/10/23 13:49 bupropion [From Wellbutrin] AdvReac Intermediate Mood Verified 10/10/23 13:49 Changes control Allergy Uncoded 08/16/23 18:03 Review of Systems Status of ROS: Reports: 6 or more systems reviewed and unremarkable except as noted in History and below [facility] Medical History Substance abuse ?F19.10 - Other psychoactive substance abuse, uncomplicated (ICD-10) Migraine ?G43.909 - Migraine, unspecified, not intractable, without status migrainosus (ICD-10) Alcohol abuse ?F10.10 - Alcohol abuse, uncomplicated (ICD-10) Dermatomyositis ?M33.90 - Dermatopolymyositis, unspecified, organ involvement unspecified (ICD-10) History of Raynaud's syndrome ?Z86.79 - Personal history of other diseases of the circulatory system (ICD- 10) Fibromyalgia affecting multiple sites ?M79.7 - Fibromyalgia (ICD-10) Connective tissue disease ?M35.9 - Systemic involvement of connective tissue, unspecified (ICD-10) ADHD (attention deficit hyperactivity disorder) ?F90.9 - Attention-deficit hyperactivity disorder, unspecified type (ICD-10) Unspecified personality disorder ?F60.9 - Personality disorder, unspecified (ICD-10) TAHIR (generalized anxiety disorder) ?F41.1 - Generalized anxiety disorder (ICD-10) PTSD (post-traumatic stress disorder) ?F43.10 - Post-traumatic stress disorder, unspecified (ICD-10) Anxiety disorder ?F41.9 - Anxiety disorder, unspecified (ICD-10) Surgical History H/O vaginal hysterectomy ?Z90.710 - Acquired absence of both cervix and uterus (ICD-10) History of salpingectomy ?Z90.79 - Acquired absence of other genital organ(s) (ICD-10) History of left oophorectomy ?Z90.721 - Acquired absence of ovaries, unilateral (ICD-10) S/P LEEP (loop electrosurgical excision procedure) ?Z98.890 - Other specified postprocedural states (ICD-10) Social History Smoking Status: Current every day smoker What tobacco products do you use: cigarettes Do you use any of these nicotine containing products: None and E-Cigarettes Second hand tobacco smoke exposure: No How often do you have a drink containing alcohol: never How often do you have six or more drinks on one occasion: Never AUDIT-C Alcohol total score: 0 Non-prescribed substance use: former substance user and marijuana (any form) service: No Exam Narrative: Exam Narrative: Pleasant. Little trouble recalling. NAD. Speaking fluidly though. Cranial nerves 2-12 intact. Pupils are briskly reactive and equal. Moving all extremities with good strength. Nontender to palpation in the trapezius and paracervical musculature. Skin is warm and dry. Numerous tattoos. Heart is elevated rate and regular rhythm. Breathing easily. Const: Vital Signs, click to edit/add: Vital Signs - 24 hr 04/21/24 22:11 Temperature 97.5 F L Pulse Rate [Pulse Oximeter] 111 H Respiratory Rate 16 Blood Pressure [Ri t Upper Arm] 135/89 Pulse Oximetry 96 Oxygen Delivery Me thod Room Air Documenting provider has reviewed patient's vital signs: yes Course Vital Signs Vital signs: Initial Vital Signs Temperature 97.5 F L 04/21/24 22:11 Temperature Source Temporal Artery Scan 04/21/24 22:11 Pulse Rate 111 H 04/21/24 22:11 Respiratory Rate 16 04/21/24 22:11 Blood Pressure 135/89 04/21/24 22:11 Blood Pressure Mean 104 04/21/24 22:11 Pulse Oximetry 96 04/21/24 22:11 Oxygen Delivery Method Room Air 04/21/24 22:11 Vital Signs Temperature 97.5 F L 04/21/24 22:11 Pulse Rate 111 H 04/21/24 22:11 Respiratory Rate 16 04/21/24 22:11 Blood Pressure 135/89 04/21/24 22:11 Pulse Oximetry 96 04/21/24 22:11 Oxygen Delivery Method Room Air 04/21/24 22:11 Temperature 97.5 F L 04/21/24 22:11 Pulse Rate 111 H 04/21/24 22:11 Respiratory Rate 16 04/21/24 22:11 Blood Pressure 135/89 04/21/24 22:11 Pulse Oximetry 96 04/21/24 22:11 Oxygen Delivery Method Room Air 04/21/24 22:11 Medications Administered Medications: Discontinued Medications Generic Name Dose Route Start Last Admin Trade Name Jose Manuel PRN Reason Stop Dose Admin Olanzapine 5 mg 04/21/24 22:57 04/21/24 23:08 Olanzapine 5 Mg Tab.Rapdis PO 04/21/24 22:58 5 mg ONCE ONE Administration Olanzapine 5 mg 04/21/24 22:58 04/21/24 23:09 Olanzapine 5 Mg Tab.Rapdis PO 04/21/24 22:59 5 mg ONCE ONE Administration Medical Decision Making MDM Narrative Medical decision making narrative: I did propose a trial of atomized intranasal lidocaine given location of her headache as periorbital. She was hesitant but ultimately agreement. Does not appear to have sinus disease at this time. There is no trauma. No red flags for other source headache at this time. Returned to atomize approximally 1 mL into each nostril starting with the left. Pending reassessment. Will need to discuss desire for opiate to help her sleep. Treatment as above was significantly helpful with this headache. Appears relieved. Discussed than desire for sleep. Since headache is better and I think would prefer not to treat headache with opiate, did propose though helping further with sleep. Offered olanzapine from stock. Given 2 tablets. See patient discharge plan for further discussion Medical Records Medical records reviewed: Yes I reviewed the patient's medical records Discharge Plan Discharge Clinical Impression: Migraine, Insomnia Patient Disposition: Home w/ Parent or Adult Condition: Improved Additional Instructions: Happy you are feeling better. Remember stay well-hydrated... With water. Try to get in a little heart pumping exercise daily. Please do what you can to quit smoking. Getting a good night's sleep should help with the headache as well. Take 1 of the Zyprexa tablets and if not asleep in an hour go ahead and take another one. Prescriptions: No Action venlafaxine 150 mg capsule,extended release 24hr 75 mg PO DAILY gabapentin 300 mg capsule 300 mg PO HS ondansetron 4 mg tablet,disintegrating 4 mg PO Q8H PRN cyclobenzaprine 10 mg tablet 10 mg PO HS PRN omeprazole 40 mg capsule,delayed release(DR/EC) 40 mg PO DAILY Qty: 30 0RF hydroxyzine pamoate 25 mg capsule 25 mg PO BID quetiapine 50 mg tablet 50 mg PO DAILY venlafaxine 75 mg capsule,extended release 24hr 75 mg PO DAILY albuterol sulfate 90 mcg/actuation HFA aerosol inhaler 2 puff inhalation QID PRN (Reason: shortness of breath or wheezing) Qty: 6.7 0RF metformin 500 mg tablet PO BID Follow Up/Referrals: Renae Baker PA-C [Primary Care Provider] - Stand Alone Forms: [facility] Info Instructions
--- OUTSIDE RECORDS SUMMARY | 2024-04-21 22:52 | XMS_ITS | Clinical Summary ---
Author Organization [facility] Address [place], [place] [address] Care Team Providers Care Supervisor Liquefaction Name Role Phone Renae Baker Primary Care Provider [phone] Allergies Active Allergy Reactions Criticality Noted Date [...] Take 40 mg by mouth once daily. 09/29/2022 Active cyclobenzaprine (FLEXERIL) 10 mg tabletIndications:M uscle spasm,Fibromyalgia affecting multiple sites Take 1 Tablet (10 mg) by mouth at bedtime if needed for Muscle Spasm. May take 1-2 tablets as needed at bedtime. 60 Tablet 6 10/16/2023 Active gabapentin (NEURONTIN) 300 mg capsuleIndications: Dermatomyositis (HC),Fibromyalgia affecting multiple sites,Connective tissue disease (HC),Hx of Raynaud's syndrome Take 1 capsule (300 mg) in the morning and continue taking 4 capsules (1200 mg) at bedtime for 7 days. Then increase to 2 capsules (600 mg) in the morning and 4 capsules at bedtime. 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 90 Capsule 02/18/2024 Active metFORMIN (GLUCOPHAGE) 500 mg tabletIndications:W eight gain due to medication Take 1 Tablet (500 mg) by mouth two times daily with meals. 180 Tablet 02/18/2024 Active QUEtiapine (SEROQUEL) 50 mg tabletIndications:M ild episode of recurrent major depressive disorder (HC) Take 1-2 Tablets (50-100 mg) by mouth at bedtime. 180 Tablet 02/18/2024 Active hydrOXYzine pamoate (VISTARIL) 25 mg capsuleIndications: Anxiety TAKE 1 CAPSULE(25 MG) BY MOUTH TWICE DAILY NEEDED FOR ANXIETY OR SLEEP 60 Capsule 03/30/2024 Active ondansetron (ZOFRAN ODT) 4 mg disintegrating tabletIndications:I ntermittent vomiting DISSOLVE 1 TABLET(4 MG) ON THE TONGUE EVERY 8 HOURS NEEDED FOR NAUSEA OR VOMITING 90 Tablet 1 04/21/2024 Active hydrOXYzine pamoate (VISTARIL) 25 mg capsuleIndications: Anxiety Take 1 capsule (25mg) by mouth twice daily as needed for anxiety/ sleep 60 Capsule 2 10/01/2023 03/30/20 24 Discontinued ondansetron (ZOFRAN ODT) 4 mg disintegrating tabletIndications:I ntermittent vomiting DISSOLVE 1 TABLET(4 MG) ON THE TONGUE EVERY 8 HOURS NEEDED FOR NAUSEA OR VOMITING 30 Tablet 3 01/14/2024 04/21/20 24 Discontinued Active Problems Problem Noted Date Diagnosed Date [...] for myositis specific antibodies showed weakly positive anti-NC-2 antibody. EMG without findings for myositis Started [...] Encounters Date Type Department Care Team Description 04/18/2024 Refill [facility] [address] [place] [address] Renae Baker PA Refill Request (Ondansetron) 03/28/2024 Refill [facility] [address] [place] [address] Bernadine Baker NP Refill Request (Hydroxyzine Pamoate) 02/18/2024 10:00 AM CDT Office Visit [facility] [address] [place] [address] Bernadine Baker NP Follow Up; Medication Management 02/18/2024 Travel 02/16/2024 Refill [facility] [address] [place] [address] Renae Baker PA Refill Request (Ondansetron) 02/12/2024 Refill [facility] [address] [place] [address] Renae Baker PA Refill Request (Ondansetron) 02/08/2024 1:35 PM CDT Office Visit [facility] [address] [place] [address] Renae Baker PA Neck Pain/problem (neck pain, feels severe at times, been happening about the last month. ) 02/08/2024 Travel 02/06/2024 Refill [facility] [address] [place] [address] Renae Baker PA Refill Request (Gabapentin) from Last 3 Months Immunizations Name Administration Dates Next Due COVID-19 vaccine (Moderna 100mcg/0.5mL) SUZETTE MDV 07/23/2021,06/25/2021 DTP 03/06/1991, 0,1989, 989 DTaP [...] Rheum arthritis Mother Heart Disease Paternal Grandfather ?[place] ag e 64 Relation Name Status Comments Father Mother Paternal Grandfather Social History Tobacco Use Types Packs/Day Years Used Date Smoking Tobacco: Every Day Cigarettes 1 23.5 Started: 1998; Last attempted to quit: 2013 Smokeless Tobacco: Never Tobacco Cessation:Ready to Q uit: Not Asked; Counseling Given: Not Answered Alcohol Use Standard Drinks/Week Comments Yes 12 (1 standard drink = 0.6 oz pu re alcohol) Once a week, if that PHQ-2 Answer Date Recorded PHQ-2 TOTAL SCORE 1 02/18/2024 Social Connections Answer Date Recorded Frequency of Communication with Friends and Fami ly 0 02/08/2024 Financial Resource Strain Answer Date R ecorded Difficulty of Paying Living Expenses 3 02/08/2024 Difficulty of Paying Living Expenses Not on file 02/08/2024 Food Insecurity Answer Date Recorded Worried About Running Out of Food in the Last Ye ar 1 02/08/2024 Transportation Needs Answer Date Record ed Lack of Transportation (Medical) 1 02/08/2024 Housing Stability Answer Date Recorded Unable to Pay for Housing in the Last Year 1 02/08/2024 Sex and Gender Information Value Date Recorded Sex Assigned at Not on file Gender Identity Not on file Sexual Orientation Not on file Obstetrics History Para Term AB IAB SAB Ectopic Multiple Livin g Live Births 2 2 2 0 0 0 0 0 0 2 2 Date Outcome GA Total Labor Labor/2nd/3rd Weight Sex Type Anes PTL Melba A1 A5 Name Clin 2008 Term 39w 0d 6h 00m/ 2.81 kg (6 lb 3 oz) F Vag Livin g 7 9 [place] Delivery Location:[place] 2015 Term 38w 0d M Vag-S pont Epidur al Livin g Last Filed Vital Signs Vital Sign Reading Time Taken Comments Blood Pressure 131/86 02/18/2024 9:49 AM CDT Pulse 106 02/18/2024 9:49 AM CDT My heartrate has been high my whole life. 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 Respiratory Rate 20 07/07/2010 8:37 AM CDT Oxygen Saturation 98% 02/08/2024 1:4 5 PM CDT Inhaled Oxygen Concentration - - Weight 94.9 kg (209 lb 4.8 oz) 02/18/2024 9:49 AM CDT Height 161.3 cm (5' 3.5) 2023 8: 44 AM CDT Body Mass Index 36.49 2023 8:44 AM CDT Plan of Treatment Health Maintenance Due Date Last Done Comments Pneumococcal series for age 6-64 (1 of 2 - PCV) 1995 COVID-19 vaccine series (3 - 2022- season) 2023 07/23/2021, 06/25/2021 BMI (ht and wt on same day) for age 18+ 2024 2023, 03/07/2023, 10/01/2019, Additional history exists Influenza for age 9-49 06/29/2024 Depression screening for age 12+ 02/17/2025 02/18/2024, 01/08/2024, 12/13/2023, Additional history exists Tetanus booster 05/25/2026 05/25/2016, 05/29, 11/26/1999 HIV for age 15-65 Completed 03/30/2009 Tdap Completed 05/25/2016 Hepatitis C screening for ag e 18-79 Completed 03/20/2023 Procedures Procedure Name Priority Date/Time Associated Diagnosis Comments LC HCV ANTIBODY RFX TO QUANT PCR Routine 03/20/2023 12:25 PM CDT Encounter for hepatitis C screening test for low risk patient ANTI HIV 1/2 Routine 03/30/2009 11:56 AM CDT Supervision of Normal First from Last 3 Months or Most Recently Relevant to Health Maintenance Results * LC HCV ANTIBODY RFX TO QUANT PCR (03/20/2023 12:25 PM CDT) HCV Ab Non Reactive Non Reactive 03/22/2023 2:08 PM CDT [facility] Blood BLOOD SPECIMEN / Unknown Venipuncture / Unknown 03/20/2023 12:25 PM CDT 03/20/2023 12:27 PM CDT Narrative [facility] ([facility]) - 03/22/2023 2:08 PM CDT Performed at: ??01 - [facility] [address] ??[id number] Lime Burner: Bruno Curran MD, Phone: ??[phone] [facility]) [facility] * HIV (03/30/2009 11:56 AM CDT) ANTI HIV 1/2 Non-reacti ve [facility] Blood specimen (specimen) BLOOD SPECIMEN / Unknown 03/30/2009 11:56 AM CDT 03/30/2009 11:47 AM CDT Lakshmi Kraus BEEF PLUCK TRIMMER SEND OUTS [facility] INTERNAL ZIP [id number] [address] from Last 3 Months or Most Recently Relevant to Health Maintenance Care Teams Supervisor Liquefaction Relationship Specialty Start Date End Date Renae Baker PA [address] [place] [address] PCP - General Physician Weatherseal Technician 02/19/23
[2024-04-21] MEDS: OLANZapine 5 MG TAB.RAPDIS PO ×2 (23:08→23:09)
== END 2024-04-21 23:15 | disposition home or self-care (01) ==
PROVIDERS: Emergency Provider Family Medicine; PCP Student in an Organized Health Care Education/Training Program
DX: G43.909 Migraine, unspecified, not intractable, without status migrainosus (principal); G47.00 Insomnia, unspecified
CPT/HCPCS: 99283; 99284; A9270

== ENCOUNTER 2024-06-19 17:41 | Emergency (ER) | payer MEDICAID, SELFPAY ==
[2024-06-19 18:01] VITALS: BP 120/88; PULSE 97; RESP 18; TEMP 36.6; O2SAT 97; BMI 33.7
[2024-06-19] MEDS: ONDANSETRON ODT 4 MG TAB PO (18:29)
--- OUTSIDE RECORDS SUMMARY | 2024-06-19 18:38 | XMS_ITS | Clinical Summary ---
Author Organization [facility] Address [place], [place] [address] Care Team Providers Care Hot Car Charger Name Role Phone Renae Baker Primary Care Provider [phone] Allergies Active Allergy Reactions Criticality Noted Date [...] mg by mouth once daily. 09/29/2022 Active gabapentin (NEURONTIN) 300 mg capsuleIndications: Dermatomyositis (HC),Fibromyalgia affecting multiple sites,Connective tissue disease (HC),Hx of Raynaud's syndrome Take 1 capsule (300 mg) in the morning and continue taking 4 capsules (1200 mg) at bedtime for 7 days. Then increase to 2 capsules (600 mg) in the morning and 4 capsules at bedtime. 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),Borderline personality disorder (HC),PTSD (post-traumatic stress disorder) TAKE 1 CAPSULE(60 MG) BY MOUTH DAILY 60 Capsule 06/05/2024 Active cyclobenzaprine (FLEXERIL) 10 mg tabletIndications:M uscle spasm,Fibromyalgia affecting multiple sites TAKE 1 TABLET(10 MG) BY MOUTH AT BEDTIME NEEDED FOR MUSCLE SPASM 30 Tablet 5 06/04/2024 Active ondansetron (ZOFRAN ODT) 4 mg disintegrating tabletIndications:I ntermittent vomiting DISSOLVE 1 TABLET(4 MG) ON THE TONGUE EVERY 8 HOURS NEEDED FOR NAUSEA OR VOMITING 90 Tablet 06/18/2024 Active cyclobenzaprine (FLEXERIL) 10 mg tabletIndications:M uscle spasm,Fibromyalgia affecting multiple sites Take 1 Tablet (10 mg) by mouth at bedtime if needed for Muscle Spasm. May take 1-2 tablets as needed at bedtime. 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 90 Capsule 02/18/2024 06/05/20 24 Discontinued ondansetron (ZOFRAN ODT) 4 mg disintegrating tabletIndications:I ntermittent vomiting DISSOLVE 1 TABLET(4 MG) ON THE TONGUE EVERY 8 HOURS NEEDED FOR NAUSEA OR VOMITING 90 Tablet 1 04/21/2024 06/18/20 24 Discontinued Active Problems Problem Noted Date Diagnosed Date Bipolar 1 disorder 11/05/2023 Last Assessment & Plan: Chart update only. Renae Mayra Malecha, PA .................... 11/05/2023 7:07 AM Alcohol abuse 03/30/2022 [...] for myositis specific antibodies showed weakly positive anti-IL-2 antibody. EMG without findings for myositis Started [...] Encounters Date Type Department Care Team Description 06/17/2024 Refill [facility] [address] [place] [address] Renae Baker PA Refill Request (Ondansetron) 06/03/2024 Refill [facility] [address] [place] [address] Renae Baker PA Refill Request (Cyclobenzaprine) 06/03/2024 Refill [facility] [address] [place] [address] Bernadine Baker NP Refill Request (Duloxetine) 05/08/2024 Refill [facility] [address] [place] [address] Bernadine Baker NP Refill Request (Hydroxyzine Pamoate) 04/18/2024 Refill [facility] [address] [place] [address] Renae Baker PA Refill Request (Ondansetron) 03/28/2024 Refill [facility] [address] [place] [address] Bernadine Baker NP Refill Request (Hydroxyzine Pamoate) from Last 3 Months Immunizations Name Administration [...] Rheum arthritis Mother Heart Disease Paternal Grandfather ?[place] ag e 64 Relation Name Status Comments Father Mother Paternal Grandfather Social History Tobacco Use Types Packs/Day Years Used Date Smoking Tobacco: Every Day Cigarettes 1 23.6 Started: 1998; Last attempted to quit: 2013 [...] oz) F Vag Livin g 7 9 [place] Delivery Location:[place] 2015 Term 38w 0d M Vag-S pont Epidur al Livin g Last Filed Vital Signs Vital Sign Reading Time Taken Comments Blood Pressure 131/86 02/18/2024 9:49 AM CDT Pulse 106 02/18/2024 9:49 AM CDT My heartrate has been high my whole life. 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 Respiratory Rate 20 07/07/2010 8:37 AM CDT [...] Care Team (Late st Contact Info) Description 07/10/2024 8:00 AM CDT Office Visit [facility] [address] [place] [address] Bernadine Baker, NAINA [address] [place] [address] Health Maintenance Due Date Last Done Comments Pneumococcal series for age 6-64 (1 of 2 - PCV) 1995 COVID-19 vaccine series ( - season) 2023 07/23/2021, 06/25/2021 BMI (ht and [...] Reactive Non Reactive 03/22/2023 2:08 PM CDT [facility] Blood BLOOD SPECIMEN / Unknown Venipuncture / Unknown 03/20/2023 12:25 PM CDT 03/20/2023 12:27 PM CDT Narrative [facility] ([facility]) - 03/22/2023 2:08 PM CDT Performed at: ??01 - [facility] ??[id number] Multimedia Manager: Bruno Curran MD, Phone: ??[phone] Renae [facility] ([facility]) [address] [place] [address] * HIV (03/30/2009 11:56 AM CDT) ANTI HIV 1/2 Non-reacti ve [facility] Blood specimen (specimen) BLOOD SPECIMEN / Unknown 03/30/2009 11:56 AM CDT 03/30/2009 11:47 AM CDT Lakshmi Kraus [address]RE[address] OPENINGS INSPECTOR SEND OUTS [facility] INTERNAL ZIP [id number] [place] [id number] from Last 3 Months or Most Recently Relevant to Health Maintenance Care Teams Hot Car Charger Relationship Specialty Start Date End Date Renae Baker PA [address] [place] [address] PCP - General Physician Merchandising Internship 02/19/23
--- NOTE | 2024-06-19 18:50 | ED.GENADULT ---
HPI - General Adult General Chief complaint: Nausea/Vomiting Stated complaint: Extreme nausea when eating Time Seen by Provider: 06/19/24 18:14 Source: patient, RN notes reviewed and old records reviewed Mode of arrival: ambulatory Limitations: no limitations History of Present Illness HPI narrative: Patient is a 34-year-old woman with past medical history including dermatomyositis and fibromyalgia as well as anxiety, PTSD, and alcohol abuse, who comes in secondary to nausea. She describes herself as a ?frequent Flyer as it relates to her nausea, she notes that this is chronic and seems to just ?come with the territory. She is here today because she ran out of [facility], she is unable to refill a prescription for at least few days, she is not exactly sure how long, and she says any time she tries to eat or drink anything she feels severely nauseated. She does not have vomiting or abdominal pain. She has no complaints of diarrhea, fevers or other acute concerns. She says that she has long ago given up finding out exactly why she is nauseated all the time, and generally controls it reasonably well with Zofran. Related Data Home Medications ?Medication ?Instructions ?Recorded ?Confirmed gabapentin 300 mg capsule 300 mg PO HS 05/11/22 06/19/24 ondansetron 4 mg disintegrating 4 mg PO Q8H PRN 05/11/22 06/19/24 tablet cyclobenzaprine 10 mg tablet 10 mg PO HS PRN 07/16/22 06/19/24 hydroxyzine pamoate 25 mg capsule 25 mg PO BID 10/04/23 06/19/24 quetiapine 50 mg tablet 50 mg PO DAILY 10/04/23 06/19/24 metformin 500 mg tablet mg PO BID 11/22/23 duloxetine 60 mg capsule,delayed 60 mg PO DAILY 06/19/24 06/19/24 release Previous Rx's ?Medication ?Instructions ?Recorded omeprazole 40 mg capsule,delayed 40 mg PO DAILY #30 caps 09/28/22 release albuterol sulfate 90 mcg/actuation 2 puff inhalation QID PRN 10/04/23 aerosol inhaler shortness of breath or wheezing #6.7 grams promethazine 25 mg tablet 25 mg PO QID PRN #14 tabs 06/19/24 Allergies Allergy/AdvReac Type Severity Reaction Status Date / Time latex Allergy Mild Rash Verified 06/19/24 18:08 oxycodone Allergy Mild Anxiety Verified 06/19/24 18:08 bupropion [From Wellbutrin] AdvReac Intermediate Mood Verified 06/19/24 18:08 Changes control Allergy Uncoded 08/16/23 18:03 [facility] Medical History Substance abuse ?F19.10 - Other psychoactive substance abuse, uncomplicated (ICD-10) Migraine ?G43.909 - Migraine, unspecified, not intractable, without status migrainosus (ICD-10) Alcohol abuse ?F10.10 - Alcohol abuse, uncomplicated (ICD-10) Dermatomyositis ?M33.90 - Dermatopolymyositis, unspecified, organ involvement unspecified (ICD-10) History of Raynaud's syndrome ?Z86.79 - Personal history of other diseases of the circulatory system (ICD-10) Fibromyalgia affecting multiple sites ?M79.7 - Fibromyalgia (ICD-10) Connective tissue disease ?M35.9 - Systemic involvement of connective tissue, unspecified (ICD-10) ADHD (attention deficit hyperactivity disorder) ?F90.9 - Attention-deficit hyperactivity disorder, unspecified type (ICD-10) Unspecified personality disorder ?F60.9 - Personality disorder, unspecified (ICD-10) TAHIR (generalized anxiety disorder) ?F41.1 - Generalized anxiety disorder (ICD-10) PTSD (post-traumatic stress disorder) ?F43.10 - Post-traumatic stress disorder, unspecified (ICD-10) Anxiety disorder ?F41.9 - Anxiety disorder, unspecified (ICD-10) Surgical History H/O vaginal hysterectomy ?Z90.710 - Acquired absence of both cervix and uterus (ICD-10) History of salpingectomy ?Z90.79 - Acquired absence of other genital organ(s) (ICD-10) History of left oophorectomy ?Z90.721 - Acquired absence of ovaries, unilateral (ICD-10) S/P LEEP (loop electrosurgical excision procedure) ?Z98.890 - Other specified postprocedural states (ICD-10) Social History Smoking Status: Current every day smoker What tobacco products do you use: cigarettes Do you use any of these nicotine containing products: None and E-Cigarettes Second hand tobacco smoke exposure: No How often do you have a drink containing alcohol: never How often do you have six or more drinks on one occasion: Never AUDIT-C Alcohol total score: 0 Non-prescribed substance use: former substance user and marijuana (any form) service: No Exam Narrative: Exam Narrative: Vital signs reviewed In general, alert, well-appearing young woman. She is comfortable, conversant and pleasant. Abdomen: Soft and nontender. Skin: Warm dry well perfused. Const: Vital Signs, click to edit/add: Vital Signs - 24 hr 06/19/24 18:01 Temperature 97.8 F Pulse Rate [Pulse Oximeter] 97 Respiratory Rate 18 Blood Pressure [Ri ght Upper Arm] 120/88 Pulse Oximetry 97 Oxygen Delivery Me thod Room Air Documenting provider has reviewed patient's vital signs: yes Course Course ED Course: I offered Zofran here, oral, I a.m. more IV. She requested a dose of oral Zofran here. We discussed ways to manage this at home which I think are best option now is to prescribe a different antiemetic. I sent a prescription for Phenergan to her pharmacy. These symptoms are by her description chronic and not in need of further evaluation today. Follow-up as needed. Should she develop new or worsening symptoms such as significant abdominal pain, vomiting despite treatment, fevers etcetera, return any time. Vital Signs Vital signs: Initial Vital Signs Temperature 97.8 F 06/19/24 18:01 Temperature Source Temporal Artery Scan 06/19/24 18:01 Pulse Rate 97 06/19/24 18:01 Respiratory Rate 18 06/19/24 18:01 Blood Pressure 120/88 06/19/24 18:01 Blood Pressure Mean 98 06/19/24 18:01 Blood Pressure Position Sitting 06/19/24 18:01 Pulse Oximetry 97 06/19/24 18:01 Oxygen Delivery Method Room Air 06/19/24 18:01 Vital Signs Temperature 97.8 F 06/19/24 18:01 Pulse Rate 97 06/19/24 18:01 Respiratory Rate 18 06/19/24 18:01 Blood Pressure 120/88 06/19/24 18:01 Pulse Oximetry 97 06/19/24 18:01 Oxygen Delivery Method Room Air 06/19/24 18:01 Temperature 97.8 F 06/19/24 18:01 Pulse Rate 97 06/19/24 18:01 Respiratory Rate 18 06/19/24 18:01 Blood Pressure 120/88 06/19/24 18:01 Pulse Oximetry 97 06/19/24 18:01 Oxygen Delivery Method Room Air 06/19/24 18:01 Medications Administered Medications: Discontinued Medications Generic Name Dose Route Start Last Admin Trade Name Jose Manuel PRN Reason Stop Dose Admin Ondansetron HCl 4 mg 06/19/24 18:22 06/19/24 18:29 Ondansetron Odt 4 Mg Tab PO 06/19/24 18:23 4 mg ONCE ONE Administration Discharge Plan Discharge Clinical Impression: Chronic nausea Patient Disposition: Home, Self-Care Condition: Stable Additional Instructions: We do not have any other anti nausea medicines in the [facility] machine, so I have sent a prescription for Phenergan to your pharmacy. Return as needed for acutely new or worsening symptoms, severe abdominal pain, fever, uncontrolled vomiting despite treatment. See primary care as needed. Prescriptions: New promethazine 25 mg tablet 25 mg PO QID PRNQty: 14 0RF No Action gabapentin 300 mg capsule 300 mg PO HS ondansetron 4 mg tablet,disintegrating 4 mg PO Q8H PRN cyclobenzaprine 10 mg tablet 10 mg PO HS PRN omeprazole 40 mg capsule,delayed release(DR/EC) 40 mg PO DAILY Qty: 30 0RF hydroxyzine pamoate 25 mg capsule 25 mg PO BID quetiapine 50 mg tablet 50 mg PO DAILY albuterol sulfate 90 mcg/actuation HFA aerosol inhaler 2 puff inhalation QID PRN (Reason: shortness of breath or wheezing) Qty: 6.7 0RF duloxetine 60 mg capsule,delayed release(DR/EC) 60 mg PO DAILY metformin 500 mg tablet PO BID Patient Comments: has not needed to take for a while Follow Up/Referrals: Renae Baker PA-C [Primary Care Provider] - Stand Alone [facility]ructions
== END 2024-06-19 19:00 | disposition home or self-care (01) ==
LOC: ED 18:36
PROVIDERS: Emergency Provider Emergency Medicine; PCP Student in an Organized Health Care Education/Training Program
DX: R11.0 Nausea (principal)
CPT/HCPCS: 99283; A9270

== ENCOUNTER 2024-10-24 15:32 | Emergency (ER) | payer MEDICAID, SELFPAY ==
[2024-10-24 15:57] VITALS: BP 119/80; PULSE 104; RESP 16; TEMP 36.6; O2SAT 95; BMI 31.4
== END 2024-10-24 16:17 | disposition left against medical advice (07) ==
LOC: ED 16:08
PROVIDERS: PCP Student in an Organized Health Care Education/Training Program
DX: Z53.21 Procedure and treatment not carried out due to patient leaving prior to being seen by health care provider (principal)

== ENCOUNTER 2024-10-30 12:43 | Emergency (ER) | payer MEDICAID, SELFPAY ==
[2024-10-30 12:48] VITALS: BP 130/88; PULSE 98; RESP 16; TEMP 36.4; O2SAT 97; BMI 33.7
--- NOTE | 2024-10-30 13:07 | ED_ITS ---
HPI - General Adult General Date Seen: 10/30/24 Chief complaint: Headache/Migraine Stated complaint: headache x2wks and vomiting Time Seen by Provider: 10/30/24 12:45 History of Present Illness HPI narrative: Patient is a 34-year-old woman with history of migraine who has had headache for 2 weeks. It feels fairly migrainous to her, has waxed and waned in intensity but was worse today and associated with vomiting. She does get photophobia although she is not photophobic right now. She has tried Tylenol without relief. She denies trauma, fevers, upper respiratory symptoms, neurologic changes or other symptoms. Other medical history reviewed. She notes that she can take 5 mg of oxycodone but if she takes any higher dose than that it causes vomiting. She also notes an allergy to Wellbutrin. Related Data Home Medications ?Medication ?Instructions ?Recorded ?Confirmed gabapentin 300 mg capsule 300 mg PO HS 05/11/22 10/30/24 ondansetron 4 mg disintegrating 4 mg PO Q8H PRN 05/11/22 10/30/24 tablet cyclobenzaprine 10 mg tablet 10 mg PO HS PRN 07/16/22 10/30/24 hydroxyzine pamoate 25 mg capsule 25 mg PO BID 10/04/23 10/30/24 quetiapine 50 mg tablet 50 mg PO DAILY 10/04/23 10/30/24 duloxetine 60 mg capsule,delayed 90 mg PO DAILY 06/19/24 10/30/24 release Previous Rx's ?Medication ?Instructions ?Recorded omeprazole 40 mg capsule,delayed 40 mg PO DAILY #30 caps 09/28/22 release albuterol sulfate 90 mcg/actuation 2 puff inhalation QID PRN 10/04/23 aerosol inhaler shortness of breath or wheezing #6.7 grams Allergies Allergy/AdvReac Type Severity Reaction Status Date / Time latex Allergy Mild Rash Verified 10/30/24 12:48 oxycodone Allergy Mild Anxiety Verified 10/30/24 12:48 bupropion (From Wellbutrin) AdvReac Intermediate Mood Verified 10/30/24 12:48 Changes control AdvReac Unknown Uncoded 10/30/24 12:48 Review of Systems Status of ROS: Reports: 10 or more systems reviewed and unremarkable except as noted in History and below [facility] Medical History Substance abuse ?F19.10 - Other psychoactive substance abuse, uncomplicated (ICD-10) Migraine ?G43.909 - Migraine, unspecified, not intractable, without status migrainosus (ICD-10) Alcohol abuse ?F10.10 - Alcohol abuse, uncomplicated (ICD-10) Dermatomyositis ?M33.90 - Dermatopolymyositis, unspecified, organ involvement unspecified (ICD-10) History of Raynaud's syndrome ?Z86.79 - Personal history of other diseases of the circulatory system (ICD- 10) Fibromyalgia affecting multiple sites ?M79.7 - Fibromyalgia (ICD-10) Connective tissue disease ?M35.9 - Systemic involvement of connective tissue, unspecified (ICD-10) ADHD (attention deficit hyperactivity disorder) ?F90.9 - Attention-deficit hyperactivity disorder, unspecified type (ICD-10) Unspecified personality disorder ?F60.9 - Personality disorder, unspecified (ICD-10) TAHIR (generalized anxiety disorder) ?F41.1 - Generalized anxiety disorder (ICD-10) PTSD (post-traumatic stress disorder) ?F43.10 - Post-traumatic stress disorder, unspecified (ICD-10) Anxiety disorder ?F41.9 - Anxiety disorder, unspecified (ICD-10) Surgical History H/O vaginal hysterectomy ?Z90.710 - Acquired absence of both cervix and uterus (ICD-10) History of salpingectomy ?Z90.79 - Acquired absence of other genital organ(s) (ICD-10) History of left oophorectomy ?Z90.721 - Acquired absence of ovaries, unilateral (ICD-10) S/P LEEP (loop electrosurgical excision procedure) ?Z98.890 - Other specified postprocedural states (ICD-10) Social History Smoking Status: Current every day smoker What tobacco products do you use: cigarettes Do you use any of these nicotine containing products: None and E-Cigarettes Second hand tobacco smoke exposure: No How often do you have a drink containing alcohol: never How often do you have six or more drinks on one occasion: Never AUDIT-C Alcohol total score: 0 Non-prescribed substance use: former substance user and marijuana (any form) service: No Exam Narrative: Exam Narrative: Vital signs reviewed In general, alert, nontoxic Head: Normocephalic, atraumatic. Eyes: Sclera clear. Pupils equal and reactive. ENT: Mucous membranes moist. Neck: Supple without adenopathy. Heart: Regular rate and rhythm without murmur. Lungs: Clear. No increased work of breathing, crackles or wheezes. Abdomen: Soft, nontender to palpation. Extremities: Well perfused, pulses intact. No significant edema. Neurologic: Alert, conversant. Speech fluent, face symmetric. Moves all extremities equally. Skin: Warm, dry well perfused. Affect: Normal. Const: Vital Signs, click to edit/add: Vital Signs - 24 hr 10/30/24 12:48 Temperature 97.6 F Pulse Rate [Pulse Oximeter] 98 Respiratory Rate 16 Blood Pressure [Ri ght Upper Arm] 130/88 Pulse Oximetry 97 Oxygen Delivery Me thod Room Air Course Course ED Course: No red flags at this time to suggest that she needs imaging or significant workup. Will go ahead and place an IV and treat for migraine and reassess. Patient feels improved after medications, stable for discharge. Return for worsening or new symptoms, otherwise see primary doctor for ongoing concerns. Vital Signs Vital signs: Initial Vital Signs Temperature 97.6 F 10/30/24 12:48 Temperature Source Temporal Artery Scan 10/30/24 12:48 Pulse Rate 98 10/30/24 12:48 Respiratory Rate 16 10/30/24 12:48 Blood Pressure 130/88 10/30/24 12:48 Blood Pressure Mean 102 10/30/24 12:48 Blood Pressure Position Sitting 10/30/24 12:48 Pulse Oximetry 97 10/30/24 12:48 Oxygen Delivery Method Room Air 10/30/24 12:48 Vital Signs Temperature 97.6 F 10/30/24 12:48 Pulse Rate 98 10/30/24 12:48 Respiratory Rate 16 10/30/24 12:48 Blood Pressure 130/88 10/30/24 12:48 Pulse Oximetry 97 10/30/24 12:48 Oxygen Delivery Method Room Air 10/30/24 12:48 Temperature 97.6 F 10/30/24 12:48 Pulse Rate 98 10/30/24 12:48 Respiratory Rate 16 10/30/24 12:48 Blood Pressure 130/88 10/30/24 12:48 Pulse Oximetry 97 10/30/24 12:48 Oxygen Delivery Method Room Air 10/30/24 12:48 Medications Administered Medications: Discontinued Medications Generic Name Dose Route Start Last Admin Trade Name Jos eManuel PRN Reason Stop Dose Admin Dexamethasone 10 mg 10/30/24 12:58 10/30/24 13:37 Dexamethasone 10 Mg/Ml Inj IV 10/30/24 12:59 10 mg ONCE ONE Administration Diphenhydramine HCl 25 mg 10/30/24 12:58 10/30/24 13:36 Diphenhydramine 50 Mg/Ml Inj IVP 10/30/24 12:59 25 mg ONCE ONE Administration Sodium Chloride 500 mls @ 500 mls/hr 10/30/24 12:58 10/30/24 14:32 0.9 % Sodium Chloride 500 Ml IV 10/30/24 13:57 Infused .Q1H ONE Infusion Metoclopramide HCl 10 mg/ 102 mls @ 306 mls/hr 10/30/24 12:58 10/30/24 14:32 Sodium Chloride IVPB 10/30/24 12:59 Infused ONCE ONE Infusion Ketorolac Tromethamine 15 mg 10/30/24 12:58 10/30/24 13:37 Ketorolac 15 Mg/Ml Inj IVP 10/30/24 12:59 15 mg ONCE ONE Administration Discharge Plan Discharge Clinical Impression: Headache Patient Disposition: Home, Self-Care Condition: Improved Instructions: Acute Headache (ED) Additional Instructions: Continue current medicines, ibuprofen or Tylenol if needed. Can use your Zofran for nausea if needed. I gave you a steroid today as sometimes this is helpful with persistent migraine. See your primary doctor for ongoing concerns, return any time for acute worsening such as high fevers, unusual rashes, etcetera. Prescriptions: No Action gabapentin 300 mg capsule 300 mg PO HS ondansetron 4 mg tablet,disintegrating 4 mg PO Q8H PRN cyclobenzaprine 10 mg tablet 10 mg PO HS PRN omeprazole 40 mg capsule,delayed release(DR/EC) 40 mg PO DAILY Qty: 30 0RF hydroxyzine pamoate 25 mg capsule 25 mg PO BID quetiapine 50 mg tablet 50 mg PO DAILY albuterol sulfate 90 mcg/actuation HFA aerosol inhaler 2 puff inhalation QID PRN (Reason: shortness of breath or wheezing) Qty: 6.7 0RF duloxetine 60 mg capsule,delayed release(DR/EC) 90 mg PO DAILY Follow Up/Referrals: Renae Baker PA-C [Primary Care Provider] - Stand Alone Forms: [employer] Info Instructions
--- OUTSIDE RECORDS SUMMARY | 2024-10-30 13:19 | XMS_ITS | Clinical Summary ---
Author Organization [email or web address] [facility] Address [place], [place] [address] Care Team Providers Care Boiler Or Engine Operator Name Role Phone Renae Baker Primary Care Provider [phone] Allergies Active Allergy Reactions Criticality Noted Date [...] 05/22/2008 Did not react well mentally Medications hydrOXYzine pamoate (VISTARIL) 25 mg capsuleIndications :Anxiety TAKE 1 CAPSULE(25 MG) BY MOUTH TWICE DAILY NEEDED FOR ANXIETY OR SLEEP 60 Capsule 9 05/13/20 24 Active cyclobenzaprine (FLEXERIL) 10 mg tabletIndications: Fibromyalgia affecting multiple sites,Muscle spasm Take 1 Tablet (10 mg) by mouth at bedtime. 90 Tablet 1 07/30/20 24 Active gabapentin (NEURONTIN) 300 mg capsuleIndications :Fibromyalgia affecting multiple sites,Dermatomyosi tis (HC),Hx of Raynaud's syndrome,Connectiv e tissue disease (HC) Take 4 capsules (1200 mg) at bedtime 120 Capsule 5 07/30/20 24 Active omeprazole (PRILOSEC) 40 mg Delayed-Release capsuleIndications :Chronic nausea Take 1 Capsule (40 mg) by mouth once daily before a meal. 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) TAKE 1 CAPSULE BY MOUTH ONCE DAILY ALONG WITH 60 MG CAPSULE FOR A TOTAL DAILY DOSE OF 90 MG DAILY 90 Capsule 10/03/20 24 Active DULoxetine (CYMBALTA) 60 mg Delayed-release capsuleIndications :PTSD (post-traumatic stress disorder),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 Take along with the 60mg cap for a total daily dose of 90mg daily 90 Capsule 08/05/20 24 024 Discontinued Active Problems Problem Noted Date Diagnosed Date Alcohol use disorder, moderate, in early remissi on 07/30/2024 Bipolar 1 disorder 11/05/2023 Assessment & Plan (11/05/2023 7:07 AM DRUG ROOM CLERK): Chart update only. RONALDO Sheth .................... 11/05/2023 7:07 AM Alcohol abuse 03/30/2022 Overview (03/30/2022): History of excessive alcohol use, declines referral to treatment Dermatomyositis 08/18/2021 Assessment & Plan (11/05/2023 7:07 AM DRUG ROOM CLERK): Chart update only. RONALDO Sheth .................... 11/05/2023 7:07 AM Hx of Raynaud's syndrome 01/30/2017 Fibromyalgia affecting multiple sites 01/11/2017 Connective tissue disease (HC) - ? 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 EMG without findings for myositis Started on plaquenil - patient stopped Attention deficit hyperactivity disorder (ADHD) 07/21/2010 Anxiety disorder; NOS PTSD and TAHIR symptoms 03/30 Unspecified personality diso rder; borderline, dependent traits 04/26/2010 Unspecified episodic mood di sorder; rule out Bipolar Disorder, Cyclothymia and rule out borderline personality disorder 04/26/2010 Overview (03/30/2022): Seen by psychiatric nurse practitioner in 2009. Refused mood stabilizers and other medication options. Resolved Problems Problem Noted Date Diagnosed Date Resolved Date Unspecified hyperkinetic syn drome of childhood 07/12/2010 07/21/2010 Overview (07/12/2010): Provisional: Likely ADHD, but of secondary importance compared to personality and mood disorder Rule out Bipolar disorder, u nspecified and Cyclothymia vs. borderline or explosive personality disorder 04/26/2010 04/26/2010 Supervision of normal first 04/08/2009 04/05/2010 Encounters Date Type Department Care Team Description 10/24/2024 Refill [facility] [address] [place] [address] Renae Baker PA Refill Request (Omeprazole) 09/30/2024 Refill [facility] [address] [place] [address] Bernadine Baker NP Refill Request (Duloxetine, Duloxetine) 09/30/2024 Refill [facility] [address] [place] [address] Renae Baker PA Refill Request (Ondansetron) 08/05/2024 1:30 PM CDT Office Visit [facility] [address] [place] [address] Bernadine Baker NP Medication Management (Anxiety is through the roof) 08/05/2024 Travel 07/30/2024 8:15 AM CDT Office Visit [facility] [address] [place] [address] Renae Baker PA Medication Management (refills ) 07/30/2024 Refill [facility] [address] [place] [address] Bernadine Baker NP Refill Request (Duloxetine) 07/30/2024 Travel from Last 3 Months Immunizations Name Administration [...] Rheum arthritis Mother Heart Disease Paternal Grandfather ?CT ag e 64 Relation Name Status Comments Father Mother Paternal Grandfather Social History Tobacco Use Types Packs/Day Years Used Date Smoking Tobacco: Every Day Cigarettes 1 24 Started: 1998; Last attempted to quit: 2013 Smokeless Tobacco: Never Tobacco Cessation:Ready to Q uit: No; Counseling Given: Yes Alcohol Use Standard Drinks/Week Comments Yes 12 (1 standard drink = 0.6 oz pu re alcohol) Once a week, if that [facility] Utilities Answer Date Recorded Do you have trouble paying f or utilities (for example, heat, electricity, water, phone)? Yes 02/08/2024 PHQ-2 Answer Date Recorded PHQ-2 TOTAL SCORE 3 08/05/2024 Social Connections Answer Date Recorded Do you often feel lonely or isolated from those around you? 0 02/08/2024 Financial Resource Strain Answer Date R ecorded Difficulty of Paying Living Expenses 3 02/08/2024 Difficulty of Paying Living Expenses Not on file 02/08/2024 Food Insecurity Answer Date Recorded Do you worry your food will run out before you are able to buy more? 1 02/08/2024 Transportation Needs Answer Date Record ed Does lack of transportation keep you from medica l appointments? 1 02/08/2024 Does lack of transportation keep you from work, meetings or getting things that you need? 1 02/08/2024 Housing Stability Answer Date Recorded What is your housing situation today? 1 02/08/2024 Comments No Sex and Gender Information Value Date Recorded Sex Assigned at Not on file Legal Sex Female 5:18 AM DRUG ROOM CLERK Gender Identity Not on file Sexual Orientation [...] oz) F Vag Livin g 7 9 [place] Delivery Location:[place] 2015 Term 38w 0d M Vag-S pont Alfonzo al Stephon g Last Filed Vital Signs Vital Sign Reading Time Taken Comments Blood Pressure 119/80 08/05/2024 1:38 PM CDT Pulse 109 08/05/2024 1:38 PM CDT Temperature 37.1 C (98.7 F) 11/06/2022 10:52 AM DRUG ROOM CLERK Respiratory Rate 20 07/07/2010 8:37 AM CDT Oxygen Saturation 99% 07/30/2024 8:18 AM CDT Inhaled Oxygen Concentration - - Weight 87.5 kg (192 lb 12.8 oz) 08/05/2024 1:38 PM CDT Height 161.3 cm (5' 3.5) 2023 8:44 AM CDT Body Mass Index 33.62 2023 8:44 AM CDT Plan of Treatment Health Maintenance Due Date Last Done Comments Pneumococcal series for age 6-49 (1 of 2 - PCV) 2008 BMI (ht and wt on same day) for age 18+ 2024 2023, 03/07/2023, 10/01/2019, Additional history exists COVID-19 vaccine series ( season) 2024 07/23/2021, 06/25/2021 Influenza for age 9-49 06/29/2024 Depression screening for age 12+ 08/05/2025 08/05/2024, 02/18/2024, 01/08/2024, Additional history exists Tetanus booster 05/25/2026 05/25/2016, 05/29, 11/26/1999 HIV for age 15-65 Completed 03/30/2009 Tdap Completed 05/25/2016 Hepatitis C screening for ag e 18-79 Completed 03/20/2023 Procedures Procedure Name Priority Date/Time Associated Diagnosis Comments HEPATIC FUNCTION PANEL Routine 07/30/2024 2:13 PM CDT Chronic nausea CK TOTAL Routine 07/30/2024 2:13 PM CDT Dermatomyositis (HC) LC HCV ANTIBODY RFX TO QUANT PCR Routine 03/20/2023 12:25 PM CDT Encounter for hepatitis C screening test for low risk patient ANTI HIV 1/2 Routine 03/30/2009 11:56 AM CDT Supervision of Normal First from Last 3 Months or Most Recently Relevant to Health Maintenance Results * (ABNORMAL) CK TOTAL (07/30/2024 2:13 PM CDT) CREATINE KINASE, TOTAL 881(H) 29 - 143 U/L [facility] Julio Blood BLOOD SPECIMEN / Unknown 07/30/2024 2:13 PM CDT 07/30/2024 2:13 PM CDT Renae HIGGINS CHEMISTRY Final Res ult [employer] [facility] [address] [place] [address], [facility] [address] [place] [address] * (ABNORMAL) LIVER PANEL (HEPATIC FUNCTION PANEL) (07/30/2024 2:13 PM CDT) PROTEIN, TOTAL 7.0 6.1 - 8.1 g/dL [facility] Julio ALBUMIN 4.4 3.6 - 5.1 g/dL [facility] GLOBULIN 2.6 1.9 - 3.7 g/dL (calc) [facility] ALBUMIN/GLOBULIN RATIO 1.7 1.0 - 2.5 (calc) [facility] BILIRUBIN, TOTAL 0.3 0.2 - 1.2 mg/dL [facility] BILIRUBIN, DIRECT 0.1 < OR = 0.2 mg/dL [facility] BILIRUBIN, INDIRECT 0.2 0.2 - 1.2 mg/dL (calc) [facility] ALKALINE PHOSPHATASE 111 31 - 125 U/L [employer] [facility] AST 32(H) 10 - 30 U/L [facility] ALT 30(H) 6 - 29 U/L popexpert lizzy Kim Blood BLOOD SPECIMEN / Unknown 07/30/2024 2:13 PM CDT 07/30/2024 2:13 PM CDT Renae HIGGINS CHEMISTRY Final Res ult [facility] [address] [place] [address], [facility] [address] [facility] [place] [address] * LC HCV ANTIBODY RFX TO QUANT PCR (03/20/2023 12:25 PM CDT) Pathologist [facility] HCV Ab Non Reactive Non Reactive 03/22/2023 2:08 PM CDT [facility] Blood BLOOD SPECIMEN / Unknown Venipuncture / Unknown 03/20/2023 12:25 PM CDT 03/20/2023 12:27 PM CDT Narrative [facility] - 03/22/2023 2:08 PM CDT Performed at: [address] [place] [id number] Tracer Bullet Section Supervisor: Bruno Curran MD, Phone: [phone] Renae HIGGINS LABORATORY Final Res ult [facility] [address] [place] [id number] * HIV (03/30/2009 11:56 AM CDT) Pathologist [facility] ANTI HIV 1/2 Non-reacti ve [facility] Blood specimen (specimen) BLOOD SPECIMEN / Unknown 03/30/2009 11:56 AM CDT 03/30/2009 11:47 AM CDT Lakshmi Kraus WASTE/MATERIALS EXCHANGE SPECIALIST SEND OUTS F inal Result [facility] INTERNAL ZIP [id number] [address] from Last 3 Months or Most Recently Relevant to Health Maintenance Insurance [facility] Care Teams Boiler Or Engine Operator Relationship Specialty Start Date End Date Reane Baker PA [address] [place] [address] PCP - General Physician Electrician Deck 02/19/23
[2024-10-30] MEDS: METOCLOPRAMIDE HCL 10 MG in 0.9 % SODIUM CHLORIDE 100 ml 100 ML 306 MG IVPB (13:36)
[2024-10-30] MEDS: diphenhydrAMINE 50 MG/ML inj 25 MG IVP (13:36)
[2024-10-30] MEDS: 0.9 % SODIUM CHLORIDE 500 ML 500 ML IV (13:36)
[2024-10-30] MEDS: KETOROLAC 15 MG/ML inj IVP (13:37)
[2024-10-30] MEDS: dexAMETHasone 10 MG/ML inj IV (13:37)
== END 2024-10-30 14:36 | disposition home or self-care (01) ==
PROVIDERS: Emergency Provider Emergency Medicine; PCP Student in an Organized Health Care Education/Training Program
DX: R51.9 Headache, unspecified (principal)
CPT/HCPCS: 96365; 96375; 99283; 99284; J1100; J1200; J1885; J2765; J7030

== ENCOUNTER 2025-03-31 16:12 | Emergency (ER) | payer MEDICAID, SELFPAY ==
--- OUTSIDE RECORDS SUMMARY | 2025-03-31 16:14 | XMS_ITS | Clinical Summary ---
Author Organization [employer] [facility] Address [address] [place] [address] Care Team Providers Care Geological Survey Field Assistant Name Role Phone Landen Maria MD Primary Care P rovider Allergies Active Allergy Reactions Criticality Noted Date [...] SLEEP 60 Capsule 9 05/13/20 24 Active omeprazole (PRILOSEC) 40 mg Delayed-Release capsuleIndications :Chronic nausea TAKE 1 CAPSULE(40 MG) BY MOUTH DAILY BEFORE A MEAL 30 Capsule 11/03/19 25 Active ondansetron (ZOFRAN ODT) 4 mg disintegrating tabletIndications: Chronic nausea DISSOLVE 1 TABLET(4 MG) ON THE TONGUE EVERY 8 HOURS NEEDED FOR NAUSEA OR VOMITING 90 Tablet 3 11/11/19 25 Active cyclobenzaprine 10 mg tabletIndications: Fibromyalgia affecting multiple sites,Muscle spasm TAKE 1 TABLET(10 MG) BY MOUTH AT BEDTIME 90 Tablet 1 02/03/20 25 Active QUEtiapine 50 mg tabletIndications: Recurrent major depressive disorder, in partial remission Take 1-2 Tablets (50-100 mg) by mouth at bedtime. 180 Tablet 1 02/03/20 25 Active DULoxetine 30 mg Delayed-release capsuleIndications :Recurrent major depressive disorder, in partial remission,PTSD (post-traumatic stress disorder) TAKE 1 CAPSULE BY MOUTH ONCE DAILY ALONG WITH 60 MG CAPSULE FOR A TOTAL DAILY DOSE OF 90 MG DAILY 90 Capsule 1 02/03/20 25 Active celecoxib 100 mg capsuleIndications :Fibromyalgia affecting multiple sites Take 1-2 Capsules (100-200 mg) by mouth 2 times daily if needed for Pain. 60 Capsule 1 02/17/20 25 Active naltrexone 50 mg tabletIndications: Alcohol use disorder, moderate, in early remission (HC) Take 1 Tablet (50 mg) by mouth once daily. 90 Tablet 1 02/17/20 25 Active cholecalciferol 50,000 unit capsuleIndications :Vitamin D deficiency Take 1 Capsule (50,000 units) by mouth once weekly. 6 Capsule 02/17/20 25 Active DULoxetine 60 mg Delayed-release capsuleIndications :Recurrent major depressive disorder, in partial remission,PTSD (post-traumatic stress disorder),Borderli ne personality disorder (HC) TAKE 1 CAPSULE(60 MG) BY MOUTH DAILY 60 Capsule 03/11/20 25 Active DULoxetine 60 mg Delayed-release capsuleIndications :Recurrent major depressive disorder, in partial remission,PTSD (post-traumatic stress disorder),Borderli ne personality disorder (HC) TAKE 1 CAPSULE(60 MG) BY MOUTH DAILY 30 Capsule 02/03/20 25 025 Discontinued Active Problems Problem Noted Date Diagnosed Date Alcohol use disorder, moderate, in early remissi on 07/30/2024 Bipolar 1 disorder 11/05/2023 Assessment & Plan (11/05/2023 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 RONALDO Sheth .................... 11/05/2023 7:07 AM Alcohol abuse 03/30/2022 Overview (03/30/2022): History of excessive alcohol use, declines referral to treatment Dermatomyositis 08/18/2021 Assessment & Plan (11/05/2023 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 RONALDO Sheth .................... 11/05/2023 7:07 AM Hx of Raynaud's syndrome 01/30/2017 Fibromyalgia affecting multiple sites 01/11/2017 Connective tissue disease (HC) - ? dermatomyosit is 12/16/2016 Overview (01/12/2022): Rheumatology consult 2018 - elevated CK Follow-up testing for myositis specific antibodies showed weakly positive anti-TX-2 antibody. EMG without findings for myositis Started [...] Encounters Date Type Department Care Team Description 03/10/2025 Refill [facility] [address] [place] [address] Bernadine Baker NP Refill Request (Duloxetine) 02/16/2025 1:50 PM CDT Office Visit [facility] [address] [place] [address] Landen Maria MD Follow Up (meloxicam - making nauseous ) 02/16/2025 Travel 02/07/2025 Refill [facility] [address] [place] [address] Landen Maria MD Refill Request (Meloxicam) 02/02/2025 8:00 AM CDT Office Visit [facility] [address] [place] [address] Bernadine Baker NP Medication Management 02/01/2025 Travel 01/31/2025 Refill [facility] [address] [place] [address] Renae Baker PA Refill Request (Cyclobenzaprine) 01/26/2025 1:00 PM CDT Office Visit [facility] [address] [place] [address] Landen Maria MD Establish Care (Discuss chronic pain ) 01/26/2025 Travel 01/19/2025 12:45 PM CDT Office Visit [facility] [address] [place] [address] Renae Baker PA Pain (Nerve pain all over. Flare up. Has had chronic pain) 01/19/2025 Travel 01/15/2025 Travel 01/09/2025 Refill [facility] [address] [place] [address] Bernadine Baker NP Refill Request (Duloxetine, Duloxetine) from Last 3 Months Immunizations Immunization Administration Dates Next Due COVID-19 vaccine (Moderna 100mcg/0.5mL) JERSON BRADFORD 07/23/2021,06/25/2021 DTP 03/06/1991, 0,1989,1988 DTaP 02/22/1994 HIB PRP-T (ActHIB,Hiberix) 03/06/1991 Hepatitis B (Adult) 04/28/1998,11/16/1997,1996 Hepatitis B (Peds) 04/28/1998,11/16/1997, 997 MMR 02/06/2001,08/21/1990 Oral Polio Vaccine 02/22/1994, 1,1989,1988 Polio (Oral Polio Vaccine,Unspecified) 02/22/1994,03/06/1991,1989,1988 Td (Age >=7 Years) 06/09/2004,11/26/1999 Tdap 05/25/2016 Family History Medical History Relation Name Comments Good Health Father Alcohol/Drug Mother Fibromyalgia Mother Psychiatric illness Mother Rheum arthritis Mother Heart Disease Paternal Grandfather ?[place] ag e 64 Relation Name Status Comments Father Mother Paternal Grandfather Social History Tobacco Use Types Packs/Day Years Used Date Smoking Tobacco: Every Day Cigarettes 1 24.4 Started: 1998; Last attempted to quit: 2013 Smokeless Tobacco: Never Tobacco Cessation:Ready to Q uit: No; Counseling Given: Yes Alcohol Use Standard Drinks/Week Comments Not Currently 12 (1 standard drink = 0.6 oz pu re alcohol) Once a week, if that PHQ-2 Answer Date Recorded PHQ-2 TOTAL SCORE 0 02/01/2025 Social Connections Answer Date Recorded Do you often feel lonely or isolated from those around you? 0 02/16/2025 Financial Resource Strain Answer Date R ecorded Difficulty of Paying Living Expenses 3 02/16/2025 Difficulty of Paying Living Expenses Not on file 02/16/2025 Food Insecurity Answer Date Recorded Do you worry your food will run out before you are able to buy more? 1 02/16/2025 Transportation Needs Answer Date Record ed Does lack of transportation keep you from medica l appointments? 1 02/16/2025 Does lack of transportation keep you from work, meetings or getting things that you need? 1 02/16/2025 Housing Stability Answer Date Recorded What is your housing situation today? 1 02/16/2025 Utilities Answer Date Recorded Do you have trouble paying f or utilities (for example, heat, electricity, water, phone)? 1 02/16/2025 Comments No Sex and Gender Information Value Date Recorded Sex Assigned at Not on file Legal Sex Female 5:18 AM PHYSICAL SCIENCE TEACHER Gender Identity Not on file Sexual Orientation [...] Vag Livin g 7 9 Wilbur Delivery Location:[place] 2015 Term 38w 0d M Vag-S pont Epidur al Livin g Last Filed Vital Signs Vital Sign Reading Time Taken Comments Blood Pressure 115/82 02/16/2025 1:45 PM CDT Pulse 101 02/16/2025 1:45 PM CDT Temperature 37.1 C (98.7 F) 11/06/2022 10:52 AM PHYSICAL SCIENCE TEACHER Respiratory Rate 20 07/07/2010 8:37 AM CDT Oxygen Saturation 97% 02/16/2025 1:45 PM CDT Inhaled Oxygen Concentration - - Weight 87.9 kg (193 lb 11.2 oz) 02/16/2025 1:45 PM CDT Height 161 cm (5' 3.39) 01/26/2025 1:37 PM CDT Body Mass Index 33.9 01/26/2025 1:37 PM CDT Plan of Treatment Upcoming Encounters Date Type Department Care Team (Late st Contact Info) Description 05/04/2025 8:00 AM CDT Office Visit [facility] [address] [place] [address] Bernadine Baker NP [address] [place] [address] Health Maintenance Due Date Last Done Comments Pneumococcal series for age 6-49 (1 of 2 - PCV) 2008 BMI (ht and wt on same day) for age 18+ 2024 2023, 03/07/2023, 10/01/2019, Additional history exists COVID-19 vaccine series ( season) 2024 07/23/2021, 06/25/2021 Influenza Vaccine (Season Ended) 2025 Depression screening for age 12+ 02/02/2026 02/02/2025, 02/01/2025, 01/31/2025, Additional history exists Tetanus booster 05/25/2026 05/25/2016, 05/29, 11/26/1999 Hepatitis B series for 19+ Completed 04/28, 04/28/1998, 11/16/1997, Additional history exists HIV for age 15-65 Completed 03/30/2009 Tdap Completed 05/25/2016 Hepatitis C screening for ag e 18-79 Completed 03/20/2023 Procedures Procedure Name Priority Date/Time Associated Diagnosis Comments COMP METABOLIC PANEL Routine 02/16/2025 2:34 PM CDT Fibromyalgia affecting multiple sites Alcohol use disorder, moderate, in early remission (HC) VITAMIN D 25 (DEFICIENCY) Routine 01/19/2025 1:42 PM CDT Vitamin D deficiency CK TOTAL Routine 01/19/2025 1:42 PM CDT Dermatomyositis (HC) LC HCV ANTIBODY RFX TO QUANT PCR Routine 03/20/2023 12:25 PM CDT Encounter for hepatitis C screening test for low risk patient ANTI HIV 1/2 Routine 03/30/2009 11:56 AM CDT Supervision of Normal First (HC) from Last 3 Months or Most Recently Relevant to Health Maintenance Results * (ABNORMAL) COMP METABOLIC PANEL (02/16/2025 2:34 PM CDT) Pathologist [facility] GLUCOSE 87 65 - 99 mg/dL [facility] Comment: Fasting reference interval UREA NITROGEN (BUN) 13 7 - 25 mg/dL [facility] CREATININE 0.88 0.50 - 0.97 mg/dL [facility] EGFR 88 > OR = 60 mL/min/1. 73m2 [facility] BUN/CREATININE RATIO SEE NOTE: 6 - 22 (calc) [facility] Comment: Not Reported: BUN and Creatinine are within reference range. SODIUM 136 135 - 146 mmol/L [facility] POTASSIUM 4.6 3.5 - 5.3 mmol/L [facility] CHLORIDE 103 98 - 110 mmol/L [facility] CARBON DIOXIDE 26 20 - 32 mmol/L [facility] CALCIUM 9.6 8.6 - 10.2 mg/dL [facility] PROTEIN, TOTAL 6.9 6.1 - 8.1 g/dL [facility] ALBUMIN 4.6 3.6 - 5.1 g/dL [facility] GLOBULIN 2.3 1.9 - 3.7 g/dL (calc) [facility] ALBUMIN/GLOBULIN RATIO 2.0 1.0 - 2.5 (calc) [facility] BILIRUBIN, TOTAL 0.4 0.2 - 1.2 mg/dL [facility] ALKALINE PHOSPHATASE 91 31 - 125 U/L [facility] AST 45(H) 10 - 30 U/L [facility] ALT 38(H) 6 - 29 U/L [facility] Blood BLOOD SPECIMEN / Unknown 02/16/2025 2:34 PM CDT 02/16/2025 2:35 PM CDT Landen Maria MD CHEMISTRY Final Result [facility] [address] [place] [address], [facility] [address] [place] [address] * (ABNORMAL) VITAMIN D 25 (DEFICIENCY) (01/19/2025 1:42 PM CDT) VITAMIN D,25-OH,TOTAL,IA 10(L) 30 - 100 ng/mL [facility] Comment: Vitamin D Status 25-OH Vitamin D: Deficiency: <20 ng/mL Insufficiency: 20 - 29 ng/mL Optimal: > or = 30 ng/mL For 25-OH Vitamin D testing on patients on D2-supplementation and patients for whom quantitation of D2 and D3 fractions is required, the [facility]TM) 25-OH VIT D, (D2,D3), LC/MS/MS is recommended: order code [id number] (patients >2yrs). See Note 1 Note 1 For additional information, please refer to http://education.[employer]/faq/QED989 (This link is being provided for informational/ educational purposes only.) Blood BLOOD SPECIMEN / Unknown 01/19/2025 1:42 PM CDT 01/19/2025 1:43 PM CDT Renae HIGGINS SEND OUTS Final Res ult [facility] [address] [place] [address], [place] [phone] [facility] [address] [facility] [place] [address] * (ABNORMAL) CK TOTAL (01/19/2025 1:42 PM CDT) Pathologist [facility] CREATINE KINASE, TOTAL 899(H) 20 - 239 U/L [facility] Blood BLOOD SPECIMEN / Unknown 01/19/2025 1:42 PM CDT 01/19/2025 1:43 PM CDT us Renae HIGGINS CHEMISTRY Final Res ult [facility] [address] [facility] [address], [place] [phone] [facility] [address] [facility] [place] [address] * LC HCV ANTIBODY RFX TO QUANT PCR (03/20/2023 12:25 PM CDT) Pathologist [facility] HCV Ab Non Reactive Non Reactive 03/22/2023 2:08 PM CDT [facility] Blood BLOOD SPECIMEN / Unknown Venipuncture / Unknown 03/20/2023 12:25 PM CDT 03/20/2023 12:27 PM CDT Narrative [facility] ([facility] - 03/22/2023 2:08 PM CDT Performed at: - [address] [id number] Cyber Security Analyst: Bruno Curran MD, Phone: [phone] us Renae HIGGINS LABORATORY Final Res ult [facility] ([facility]) [address] [place] [address] * HIV (03/30/2009 11:56 AM CDT) [facility] ANTI HIV 1/2 Non-reacti ve [facility] Blood specimen (specimen) BLOOD SPECIMEN / Unknown 03/30/2009 11:56 AM CDT 03/30/2009 11:47 AM CDT us Lakshmi Kraus NP SEND OUTS F inal Result [facility] INTERNAL ZIP [phone] [address] from Last 3 Months or Most Recently Relevant to Health Maintenance Insurance [facility] Care Teams Geological Survey Field Assistant Relationship Specialty Start Date End Date Landen Maria MD [address] [place] [address] PCP - General Family Practice 01/26/25
[2025-03-31 16:21] VITALS: BP 124/83; PULSE 78; RESP 18; TEMP 36.2; O2SAT 97; BMI 35.3
--- NOTE | 2025-03-31 16:24 | ED.HA ---
HPI - Headache General Time Seen by Provider: 16:24 Date Seen: 03/31/25 Chief Complaint: Headache/Migraine Stated Complaint: Migrane Time Seen by Provider: 03/31/25 16:15 Source: patient and RN notes reviewed Mode of arrival: ambulatory Limitations: no limitations History of Present Illness HPI Narrative: Kalli is a 35-year-old female coming in with complaint of a migraine that started this morning. She has tried Excedrin today without relief. She thinks it is the current weather changes well as the poor air quality that is affecting us right now that may have triggered this. She has not been sick with anything. This is a typical ?bad? migraine for her. No fevers or chills. With bad migraine she will have blurry vision in left eye which she is experiencing. This is not abnormal for a bad migraine for her, no other acute neurologic symptoms with her migraines. She has not had any nausea or vomiting. She does tell me that she has made triple digits for sobriety, she is commended on this. MD elicited complaint: migraine Related Data Home Medications ?Medication ?Instructions ?Recorded ?Confirmed ondansetron 4 mg disintegrating 4 mg PO Q8H PRN 05/11/22 10/30/24 tablet cyclobenzaprine 10 mg tablet 10 mg PO HS PRN 07/16/22 10/30/24 hydroxyzine pamoate 25 mg capsule 25 mg PO BID 10/04/23 10/30/24 quetiapine 50 mg tablet 50 mg PO DAILY 10/04/23 10/30/24 duloxetine 60 mg capsule,delayed 90 mg PO DAILY 06/19/24 10/30/24 release Previous Rx's ?Medication ?Instructions ?Recorded omeprazole 40 mg capsule,delayed 40 mg PO DAILY #30 caps 09/28/22 release albuterol sulfate 90 mcg/actuation 2 puff inhalation QID PRN 10/04/23 aerosol inhaler shortness of breath or wheezing #6.7 grams Allergies Allergy/AdvReac Type Severity Reaction Status Date / Time latex Allergy Mild Rash Verified 10/30/24 12:48 oxycodone Allergy Mild Anxiety Verified 10/30/24 12:48 bupropion (From Wellbutrin) AdvReac Intermediate Mood Verified 10/30/24 12:48 Changes control AdvReac Unknown Uncoded 10/30/24 12:48 Review of Systems Status of ROS: Reports: 6 or more systems reviewed and unremarkable except as noted in History and below [facility] Medical History Substance abuse ?F19.10 - Other psychoactive substance abuse, uncomplicated (ICD-10) Migraine ?G43.909 - Migraine, unspecified, not intractable, without status migrainosus (ICD-10) Alcohol abuse ?F10.10 - Alcohol abuse, uncomplicated (ICD-10) Dermatomyositis ?M33.90 - Dermatopolymyositis, unspecified, organ involvement unspecified (ICD-10) History of Raynaud's syndrome ?Z86.79 - Personal history of other diseases of the circulatory system (ICD-10) Fibromyalgia affecting multiple sites ?M79.7 - Fibromyalgia (ICD-10) Connective tissue disease ?M35.9 - Systemic involvement of connective tissue, unspecified (ICD-10) ADHD (attention deficit hyperactivity disorder) ?F90.9 - Attention-deficit hyperactivity disorder, unspecified type (ICD-10) Unspecified personality disorder ?F60.9 - Personality disorder, unspecified (ICD-10) TAHIR (generalized anxiety disorder) ?F41.1 - Generalized anxiety disorder (ICD-10) PTSD (post-traumatic stress disorder) ?F43.10 - Post-traumatic stress disorder, unspecified (ICD-10) Anxiety disorder ?F41.9 - Anxiety disorder, unspecified (ICD-10) Surgical History H/O vaginal hysterectomy ?Z90.710 - Acquired absence of both cervix and uterus (ICD-10) History of salpingectomy ?Z90.79 - Acquired absence of other genital organ(s) (ICD-10) History of left oophorectomy ?Z90.721 - Acquired absence of ovaries, unilateral (ICD-10) S/P LEEP (loop electrosurgical excision procedure) ?Z98.890 - Other specified postprocedural states (ICD-10) Social History Smoking Status: Current every day smoker What tobacco products do you use: cigarettes Do you use any of these nicotine containing products: None and E-Cigarettes Second hand tobacco smoke exposure: No How often do you have a drink containing alcohol: never How often do you have six or more drinks on one occasion: Never AUDIT-C Alcohol total score: 0 Non-prescribed substance use: former substance user and marijuana (any form) service: No Exam Const: Vital Signs, click to edit/add: Vital Signs - 24 hr 03/31/25 16:21 Temperature 97.2 F L Pulse Rate [Pulse Oximeter] 78 Respiratory Rate 18 Blood Pressure [Ri ght Upper Arm] 124/83 Pulse Oximetry 97 Oxygen Delivery Me thod Room Air This 35-year-old female is alert, interactive, no apparent distress. She is ambulatory into the ED of her own accord. Pupils are equal round reactive, sclera clear come extraocular muscles intact. She does have normal visual field by confrontation although she he does state vision in the left is blurry. Symmetrical facial function, speech normal. Neck is supple, no adenopathy or masses. Lungs are clear, good air entry, no wheezing crackles. CV regular rate and rhythm, no murmur. Strength is 5/5 and symmetric in upper and lower extremities, no motor deficits noted within any extremity. Normal light touch sensation. Gait was normal coming in. Documenting provider has reviewed patient's vital signs: yes Course Course ED Course: Kalli is having a typical migraine that is not responding to home medication and has become more severe for her. Will place an IV, give her L of IV fluids, do IV Benadryl and Reglan. We will see how she responds to that, can add additional medications if needed. There are no concerning warning findings with her symptoms. I do not think she warrants any neurologic imaging or laboratory imaging. Reevaluation(s) Time of Reevaluation #1: 17:43 Reevaluation #1: Kalli is feeling better. She states she cannot wait to go home. There is up about maybe 100 mL left of her IV fluids. She would like to leave at this time. Will have nursing staff discharge her. Vital Signs Vital signs: Initial Vital Signs Temperature 97.2 F L 03/31/25 16:21 Temperature Source Temporal Artery Scan 03/31/25 16:21 Pulse Rate 78 03/31/25 16:21 Respiratory Rate 18 03/31/25 16:21 Blood Pressure 124/83 03/31/25 16:21 Blood Pressure Mean 96 03/31/25 16:21 Blood Pressure Position Sitting 03/31/25 16:21 Pulse Oximetry 97 03/31/25 16:21 Oxygen Delivery Method Room Air 03/31/25 16:21 Vital Signs Temperature 97.2 F L 03/31/25 16:21 Pulse Rate 78 03/31/25 16:21 Respiratory Rate 18 03/31/25 16:21 Blood Pressure 124/83 03/31/25 16:21 Pulse Oximetry 97 03/31/25 16:21 Oxygen Delivery Method Room Air 03/31/25 16:21 Temperature 97.2 F L 03/31/25 16:21 Pulse Rate 78 03/31/25 16:21 Respiratory Rate 18 03/31/25 16:21 Blood Pressure 124/83 03/31/25 16:21 Pulse Oximetry 97 03/31/25 16:21 Oxygen Delivery Method Room Air 03/31/25 16:21 Medications Administered Medications: Discontinued Medications Generic Name Dose Route Start Last Admin Trade Name Freq PRN Reason Stop Dose Admin Diphenhydramine HCl 25 mg 03/31/25 16:32 03/31/25 16:53 Diphenhydramine 50 Mg/Ml Inj IVP 03/31/25 16:33 25 mg ONCE ONE Administration Sodium Chloride 1,000 mls @ 1,000 mls/hr 03/31/25 16:33 03/31/25 16:54 0.9 % Sodium Chloride 1000 Ml IV 03/31/25 17:32 1,000 mls/hr .Q1H SOLOMON Administration Metoclopramide HCl 10 mg/ 102 mls @ 306 mls/hr 03/31/25 16:32 03/31/25 17:36 Sodium Chloride IVPB 03/31/25 16:33 Infused ONCE ONE Infusion Discharge Plan Discharge Clinical Impression: Migraine Qualifiers: Migraine type: unspecified Status migrainosus presence: without status migrainosus Intractability: not intractable Qualified Code(s): G43.909 - Migraine, unspecified, not intractable, without status migrainosus Patient Disposition: Home, Self-Care Condition: Improved Instructions: Migraine Headache (ED) Additional Instructions: Go home and rest. Recommend that you stay hydrated. If any return of your headache, can try Tylenol, ibuprofen or usual [id number] medicines per bottle instructions that you would use for control of migraines. If your headache is worsening and not responsive to home medicines, have further concerns, please seek re-evaluation. Activity Level: Activity as Tolerated Prescriptions: No Action ondansetron 4 mg tablet,disintegrating 4 mg PO Q8H PRN cyclobenzaprine 10 mg tablet 10 mg PO HS PRN omeprazole 40 mg capsule,delayed release(DR/EC) 40 mg PO DAILY Qty: 30 0RF hydroxyzine pamoate 25 mg capsule 25 mg PO BID quetiapine 50 mg tablet 50 mg PO DAILY albuterol sulfate 90 mcg/actuation HFA aerosol inhaler 2 puff inhalation QID PRN (Reason: shortness of breath or wheezing) Qty: 6.7 0RF duloxetine 60 mg capsule,delayed release(DR/EC) 90 mg PO DAILY Follow Up/Referrals: Renae Baker PA-C [Primary Care Provider, Family Practice] Stand Alone Forms: [employer] Info Instructions
[2025-03-31] MEDS: diphenhydrAMINE 50 MG/ML inj 25 MG IVP (16:53)
[2025-03-31] MEDS: METOCLOPRAMIDE HCL 10 MG in 0.9 % SODIUM CHLORIDE 100 ml 100 ML 306 MG IVPB (16:53)
[2025-03-31] MEDS: 0.9 % SODIUM CHLORIDE 1000 ml 1,000 ML IV (16:54)
== END 2025-03-31 17:52 | disposition home or self-care (01) ==
PROVIDERS: Emergency Provider Family Medicine; PCP Student in an Organized Health Care Education/Training Program
DX: G43.909 Migraine, unspecified, not intractable, without status migrainosus (principal)
CPT/HCPCS: 96365; 96375; 99283; 99284; J1200; J2765; J7030